=== PATIENT | female | born 1950 | race Caucasian/White ===

== ENCOUNTER 2024-02-14 12:39 | Outpatient (CLI) | payer MEDICARE, MEDICAID, SELFPAY | END 2024-02-14 12:40 | disposition home or self-care (01) | LOC: WOUND 12:40 | PROVIDERS: PCP Internal Medicine; Visit Provider Nurse Practitioner Family | DX: L89.893 Pressure ulcer of other site, stage 3 (principal); L89.610 Pressure ulcer of right heel, unstageable; L89.620 Pressure ulcer of left heel, unstageable; I89.0 Lymphedema, not elsewhere classified; M88.89 Osteitis deformans of multiple sites; F78.A9 Other genetic related intellectual disability | CPT/HCPCS: 11042; 11045; 87070; 87186; 97597; G0463 ==

== ENCOUNTER 2024-02-28 12:42 | Outpatient (CLI) | payer MEDICARE, MEDICAID, SELFPAY | END 2024-02-28 12:43 | disposition home or self-care (01) | LOC: WOUND 12:43 | PROVIDERS: PCP Internal Medicine; Visit Provider Nurse Practitioner Family | DX: L89.893 Pressure ulcer of other site, stage 3 (principal); L89.620 Pressure ulcer of left heel, unstageable; I89.0 Lymphedema, not elsewhere classified; M88.89 Osteitis deformans of multiple sites; F78.A9 Other genetic related intellectual disability | CPT/HCPCS: 11042; 97597 ==

== ENCOUNTER 2024-03-13 12:37 | Outpatient (CLI) | payer MEDICARE, MEDICAID, SELFPAY | END 2024-03-13 12:38 | disposition home or self-care (01) | LOC: WOUND 12:37 | PROVIDERS: PCP Internal Medicine; Visit Provider Nurse Practitioner Family | DX: L89.894 Pressure ulcer of other site, stage 4 (principal); L89.614 Pressure ulcer of right heel, stage 4; L89.620 Pressure ulcer of left heel, unstageable; L89.893 Pressure ulcer of other site, stage 3; L89.890 Pressure ulcer of other site, unstageable; M88.89 Osteitis deformans of multiple sites; I89.0 Lymphedema, not elsewhere classified; F78.A9 Other genetic related intellectual disability | CPT/HCPCS: 11043; 11046; 97597; 97598; G0463 ==

== ENCOUNTER 2024-03-27 12:36 | Outpatient (CLI) | payer MEDICARE, MEDICAID, SELFPAY | END 2024-03-27 12:37 | disposition home or self-care (01) | LOC: WOUND 12:36 | PROVIDERS: PCP Internal Medicine; Visit Provider Nurse Practitioner Family | DX: L89.894 Pressure ulcer of other site, stage 4 (principal); L89.614 Pressure ulcer of right heel, stage 4; L89.620 Pressure ulcer of left heel, unstageable; L89.893 Pressure ulcer of other site, stage 3; L89.890 Pressure ulcer of other site, unstageable; I89.0 Lymphedema, not elsewhere classified | CPT/HCPCS: 97597; 97598 ==

== ENCOUNTER 2024-04-10 12:32 | Outpatient (CLI) | payer MEDICARE, MEDICAID, SELFPAY | END 2024-04-10 12:33 | disposition home or self-care (01) | LOC: WOUND 12:32 | PROVIDERS: PCP Internal Medicine; Visit Provider Nurse Practitioner Family | DX: L89.894 Pressure ulcer of other site, stage 4 (principal); L89.614 Pressure ulcer of right heel, stage 4; L89.620 Pressure ulcer of left heel, unstageable; I89.0 Lymphedema, not elsewhere classified | CPT/HCPCS: 97602; G0463 ==

== ENCOUNTER 2024-04-24 12:30 | Outpatient (CLI) | payer MEDICARE, MEDICAID, SELFPAY | END 2024-04-24 12:31 | disposition home or self-care (01) | LOC: WOUND 12:31 | PROVIDERS: PCP Internal Medicine; Visit Provider Nurse Practitioner Family | DX: L89.894 Pressure ulcer of other site, stage 4 (principal); L89.624 Pressure ulcer of left heel, stage 4; L89.614 Pressure ulcer of right heel, stage 4; I89.0 Lymphedema, not elsewhere classified; M88.89 Osteitis deformans of multiple sites; F78.A9 Other genetic related intellectual disability | CPT/HCPCS: 11043; 11046; 87070; 87186; 97597; 97598 ==

== ENCOUNTER 2024-05-08 12:35 | Outpatient (CLI) | payer MEDICARE, SELFPAY ==
[2024-05-08 15:07] LABS: Basophils Percent Auto 0.3 % (0.0-3.0); Eosinophils Percent Auto 0.2 % (0.0-7.0); Hematocrit 30.9 % (33.0-51.0); Hemoglobin* 9.7 gm/dL (12.0-16.0); Immature Granulocytes Pct Auto 0.2 %; Lymphocytes Percent Auto 11.6 % (20-44); Mean Corpuscular HGB Conc 31 gm/dL (32-36); Mean Corpuscular Hemoglobin 27 pg (26-34); Mean Corpuscular Volume 85 fL (80-100); Monocytes Percent Auto 11.8 % (0.0-11.0); Neutrophils Percent Auto 75.9 % (42.0-72.0); Platelet Count* 504 K/uL (140-440); RDW Coefficient of Variation % 14.4 % (11.5-15.5); Red Blood Count 3.62 m/uL (4.00-5.20); Slide Review Reflex No; White Blood Count* 12.55 K/uL (4.50-11.00)
[2024-05-08 15:14] LABS: Chloride* 97 mmol/L (96-114); Potassium* 4.4 mmol/L (3.6-5.1); Sodium* 135 mmol/L (135-149)
[2024-05-08 15:17] LABS: Anion Gap 7 mEq/L (7-15); Blood Urea Nitrogen* 21 mg/dL (7-30); Calcium* 9.5 mg/dL (8.4-10.6); Carbon Dioxide* 31 mmol/L (20-32); Creatinine* 0.5 mg/dL (0.5-1.5); Estimated Glomerular Filt Rate 100 ml/min; Glucose* 100 mg/dL (60-115)
[2024-05-08 15:34] LABS: C Reactive Protein* 11.6 mg/dL (0.5-1.0)
[2024-05-08 15:39] LABS: Albumin* 3.3 g/dL (3.3-5.0)
[2024-05-08 15:42] LABS: Alanine Aminotransferase* 15 U/L (4-35); Alkaline Phosphatase* 231 U/L (40-150); Aspartate Amino Transferase* 22 U/L (12-35); Bilirubin Direct* 0.3 mg/dL (0.0-0.5); Bilirubin Total* 0.3 mg/dL (0.1-1.5); Total Protein* 7.5 g/dL (6.0-8.3)
== END 2024-05-08 12:36 | disposition home or self-care (01) ==
LOC: WOUND 12:37
PROVIDERS: PCP Internal Medicine; Visit Provider Family Medicine
DX: L89.614 Pressure ulcer of right heel, stage 4 (principal); L89.894 Pressure ulcer of other site, stage 4; L89.624 Pressure ulcer of left heel, stage 4; M88.89 Osteitis deformans of multiple sites; I89.0 Lymphedema, not elsewhere classified; F78.A9 Other genetic related intellectual disability; Z79.899 Other long term (current) drug therapy
CPT/HCPCS: 11042; 11045; 36415; 73630; 80048; 80076; 85025; 86140; G0463

== ENCOUNTER 2024-05-09 17:49 | Inpatient (IN) | payer MEDICARE, MEDICAID, SELFPAY ==
--- OUTSIDE RECORDS SUMMARY | 2024-05-09 17:51 | XMS_ITS | Clinical Summary ---
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 Length: calf Strength: 20-30 mmHg Diagnosis: bilateral lower extremity edema 1 Packet 5 021 Active hospital bedIndications:Gas troesophageal reflux disease, unspecified whether esophagitis present,Osteoarthr itis, unspecified osteoarthritis type, unspecified site,Paget's disease of bone,Bilateral leg edema,Abnormal gait Hospital bed with mattress and 1/2 rails. Semi-electric bed. Length of need lifetime months. Bed surgical oncologist:yes 1 Each 023 Active traMADoL (ULTRAM) 50 mg tabletIndications: Paget's disease of bone Administer 1 Tablet (50 mg) via G-tube 4 times daily if needed for Pain. 20 Tablet 024 Active clonazePAM (KLONOPIN) 0.5 mg tabletIndications: Anxiety Administer 1 Tablet (0.5 mg) via G-tube at bedtime. 30 Tablet 024 Active escitalopram oxalate (Lexapro) 10 mg tabletIndications: Depression, unspecified depression type Administer 1 Tablet (10 mg) via G-tube once daily. Take with 20 mg for a total daily of 30 mg AM 30 Tablet 11 024 Active escitalopram oxalate (Lexapro) 20 mg tabletIndications: Depression, unspecified depression type Administer 1 Tablet (20 mg) via G-tube once daily. Take with 10 mg for a total daily dose of 30 mg AM 30 Tablet Active QUEtiapine (SeroqueL) 100 mg tabletIndications: Mixed anxiety depressive disorder Administer 2 Tablets (200 mg) via G-tube at bedtime. 60 Tablet Active apixaban (ELIQUIS) 5 mg tabletIndications: prevent thromboembolism in chronic atrial fibrillation Take 1 Tablet (5 mg) by mouth two times daily. 60 Tablet Active metoprolol tartrate (LOPRESSOR) 25 mg tabletIndications: Atrial fibrillation with RVR (HC) Administer 1 Tablet (25 mg) via G-tube two times daily. 60 Tablet Active valproic acid (DEPAKENE) 250 mg/5 mL oral solutionIndication s:Mixed anxiety depressive disorder Administer 10 mL (500 mg) via G-tube three times daily. 900 mL Active multivitamin pediatric chewable tabletIndications: Paget's disease of bone Administer 1 Tablet via G-tube once daily. 30 Tablet Active Diaper,Brief, Adult,DisposableIn dications:Function al urinary incontinence,Incon tinence of feces, unspecified fecal incontinence type Incontinence supplies: XL Briefs, under pads, chucks, gloves. For home use. 360 Each Active lansoprazole (PREVACID SOLUTAB) 15 mg disintegrating tabletIndications: Gastroesophageal reflux disease, unspecified whether esophagitis present Administer 1 Tablet (15 mg) via G-tube once daily before a meal. 30 Tablet Active tube feedingIndications :Dysphagia, unspecified type Length of need: Greater than 90 days.Tube feeding formula: Jevity 1.5 Tube feeding rate: per Pump: 100 mLs per hour over 12 hours via jejunostomy Water flush: 150 mLs every 6 hours times per day via jejunostomy Medications via: G Tube Supplies needed for: Pump Feedings: feeding pump, IV pole, feeding set, 60 cc syringes, drain sponges, backpack. G tube 12 inch extension. 1 month supply with 12 refills. 1 Each Active Foam Bandage (Tendra Mepilex Border) 4 X 4 bndgIndications:Pr essure injury of skin, unspecified injury stage, unspecified location Apply topically to affected area(s). 1 box 1 Each 024 Active glycopyrrolate (ROBINUL) 1 mg tabletIndications: Excessive oral secretions Give 1 mg per Gtube twice daily as needed for extra secretions. 60 Tablet 12 025 Active cetirizine (ZYRTEC) 10 mg tabletIndications: Chronic rhinitis Administer 1 Tablet (10 mg) via G-tube once daily. 90 Tablet 2 025 Active acetaminophen (TYLENOL EXTRA STRGTH) 500 mg tabletIndications: Paget's disease of bone ADMINISTER 2 TABLETS VIA G-TUBE THREE TIMES DAILY. MAX ACETAMINOPHEN DOSE: 4000MG IN 24HRS 540 Tablet 025 Active acetaminophen (TYLENOL EXTRA STRGTH) 500 mg tabletIndications: Paget's disease of bone Administer 2 Tablets (1,000 mg) via G-tube three times daily. Max acetaminophen dose: 4000mg in 24 hrs. 90 Tablet 5 025 2024 Discontinued Active Problems Problem Noted Date Diagnosed Date Gastrojejunal (GJ) tube in place 02/15/2024 Hypervolemia 12/07/2023 Acute respiratory failure with hypoxia Nonverbal 12/02/2023 Pneumonia of both lungs due to Streptococcus pne umoniae 12/02/2023 Septic shock 12/02/2023 SRINI (acute kidney injury) 12/02/2023 Hypernatremia 12/02/2023 Lactic acidosis 12/02/2023 Mammogram declined 07/30/2020 Bilateral leg edema 07/30/2020 Swallowing dysfunction 11/15/2019 Chronic constipation 10/10/2019 Abnormal gait 10/10/2019 Overview (10/10/2019): Using wheeled walker and staff assistance. Chronic cough 10/10/2019 Overview (10/10/2019): Has had GI workup as it seems to occur during eating. Chronic rhinitis 08/02/2019 Gastroesophageal reflux disease 09/21/2017 Mixed anxiety depressive disorder 09/21/2017 Overview (10/10/2019): Psychiatry at [facility] with Sherron Bhagat. They manage her adderall, depakote, seroquel, and lexapro. Moderate intellectual disability 09/21/2017 Overview (10/10/2019): Currently living at the [facility]. Nonverbal. Knows some sign language. Overactive child 09/21/2017 Paget's disease of bone 09/21/2017 Overview (10/10/2019): Follows at [facility] for occasional injections for pain control. Taking celebrex. Hypertensive kidney disease, stage II 06/09/2009 Overview (07/25/2019): Overview: HTN [Hypertension] Osteoarthritis 06/09/2009 Resolved Problems Problem Noted Date Diagnosed Date Resolved Date Atrial fibrillation with RVR 12/02/2023 02/15/2024 Encounters Date Type Department Care Team Description 05/08/2024 Telephone [facility] [address] [place] [address] Yury Villa DPM Appointment Request 04/30/2024 Telephone [facility] [address] [place] [address] Rosmery Sheffield, RN Appointment 04/26/2024 Telephone [facility] [address] [place] [address] Rebeca Diaz DO Form (progress evaluation of physical therapy form) 04/19/2024 Refill [facility] [address] [place] [address] Rebeca Diaz DO Refill Request (Acetaminophen) 03/30/2024 Refill [facility] [address] [place] [phone] Rebeca Diaz DO Refill Request (certizine) 03/26/2024 Telephone [facility] [address] [place] [address] Rebeca Diaz DO Form (Gel Foam Mattress Overlay.) 03/14/2024 10:25 AM BURNISHER - 03/14/2024 11:59 PM BURNISHER Hospital Encounter [facility] [address] [place] [address] Risa Treviño MD Aspiration pneumonia (HC) 03/14/2024 Travel 02/15/2024 2:40 PM BURNISHER Office Visit [facility] [address] [place] [address] Rebeca Diaz DO Hospital F/U (follow up ER and ct scan) 02/14/2024 9:50 AM BURNISHER - 02/14/2024 11:59 PM BURNISHER Hospital Encounter [facility] [address] [place] [address] Rebeca Diaz DO Acute respiratory failure with hypoxia (HC); Acute aspiration pneumonia (HC) 02/14/2024 Travel 02/10/2024 11:20 AM BURNISHER - 02/10/2024 1:53 PM BURNISHER Emergency [facility] [address] [place] [address] Celso Verde PA Cellulitis of right lower extremity (Primary Dx); Pressure injury of skin of left heel, unspecified injury stage Discharge Disposition: Home Self Care 02/10/2024 Telephone [facility] [address] [place] [address] Rebeca Diaz DO Appointment (CELLULITIS RIGHT LOWER LEG) 02/10/2024 Travel from Last 3 Months Immunizations Immunization Administration Dates Next Due COVID-19 vaccine (Moderna 100mcg/0.5mL) ANILA RICO 04/02/2020,03/05/2020 Influenza A (H1N1), Inactivated 02/05/2009 Influenza Virus, Unspecified 01/15/2016, 12/24/2014,12/13/2013,2012,12/20/2011,12/10/2010,11/20/2009 Influenza, High-dose Inactivated 12/06/2018,12/08 Influenza, IIV3 (Age 6-35 mos) 12/02/2008 Influenza, IIV3 (Age >=3 years) 12/20/2011,12/05,01/09/2007 Influenza, IIV4 01/11/2017,01/15/2016,02/05/2009 Influenza, IIV4 (=>6mos) MDV 12/24/2014 Influenza, Inactivated AIIV4 (Age 65+ Years) Preserv Free 12/03/2022,12/26/2021,10/29/2020,2019 Influenza, Inactivated IIV3 (Age 65+ Years) Preserv Free 12/26/2023 Pneumococcal Poly,23-Valent (Pneumovax) 09/21/2017,07/28/1998 Pneumococcal conj 13-Valent (Prevnar 13) 08/19/2016 Td (Age >=7 Years) 07/23/2003 Tdap 01/20/2022,12/20/2011 Zoster (Shingrix-RZV, recombinant) 08/08/2020, Social History Tobacco Use Types Packs/Day Years Used Date Smoking Tobacco: Never Passive Smoke Exposure: Never Smokeless Tobacco: Never Tobacco Cessation:Counseling Given: Not Answered Alcohol Use Standard Drinks/Week Comments Never 0 (1 standard drink = 0.6 oz pur e alcohol) PHQ-2 Answer Date Recorded PHQ-2 TOTAL SCORE 0 12/03/2022 Social Connections Answer Date Recorded Do you often feel lonely or isolated from those around you? 0 12/16/2023 Financial Resource Strain Answer Date R ecorded Difficulty of Paying Living Expenses 3 12/16/2023 Difficulty of Paying Living Expenses Not on file 12/16/2023 Food Insecurity Answer Date Recorded Do you worry your food will run out before you are able to buy more? 1 12/16/2023 Transportation Needs Answer Date Record ed Does lack of transportation keep you from medica l appointments? 1 12/16/2023 Does lack of transportation keep you from work, meetings or getting things that you need? 1 12/16/2023 Housing Stability Answer Date Recorded What is your housing situation today? 1 12/16/2023 Interpersonal Safety Answer Date Record ed Are you being hit, kicked, p ushed or yelled at (see row info)? No 02/10/2024 Interpersonal Safety Abuse 12 - 18 Not on file 02/10/2024 Interpersonal Safety Ambulatory Vulnerability No t on file 02/10/2024 Utilities Answer Date Recorded Do you have trouble paying f or utilities (for example, heat, electricity, water, phone)? 1 12/16/2023 Comments No Sex and Gender Information Value Date Recorded Sex Assigned at Not on file Legal Sex Female 5:24 AM BURNISHER Gender Identity Not on file Sexual Orientation Not on file Obstetrics History Last Filed Vital Signs Vital Sign Reading Time Taken Comments Blood Pressure 130/72 02/15/2024 2:46 PM BURNISHER Pulse 76 02/15/2024 2:46 PM BURNISHER Temperature 36.9 C (98.5 F) 02/10/2024 10:13 AM BURNISHER Respiratory Rate 18 02/10/2024 10:20 AM BURNISHER Oxygen Saturation 97% 02/10/2024 11:44 AM BURNISHER Inhaled Oxygen Concentration - - Weight 81.2 kg (179 lb) 02/10/2024 11:44 AM BURNISHER Height 177.8 cm (5' 10) 02/10/2024 11:44 AM BURNISHER Body Mass Index 25.68 02/10/2024 11:44 AM BURNISHER Plan of Treatment Upcoming Encounters Date Type Department Care Team (Late st Contact Info) Description 05/10/2024 1:45 PM CDT Office Visit [facility] [address] [phone] Yury Villa, DPMo [address] [place] [address] Health Maintenance Due Date Last Done Comments Mammogram for age 45-75 1997 RSV vaccine for adults or (1 - Risk 60-74 years 1-dose series) 2012 DEXA/DXA scan for age 65+ 2017 COVID-19 vaccine series ( season) 2023 12/03/2020, 04/02/2020, 03/05/2020 BMI (ht and wt on same day) for age 18+ 12/04/2023 12/03/2022 Depression screening for age 12+ 12/04/2023 12/03/2022, 10/30/2021, 10/29/2020, Additional history exists Medicare Wellness for age 65+ 12/04/2023, 10/30/2021, 10/29/2020, Additional history exists Colonoscopy through age 75 10/17/202410/17 ([facility]) Lipids for age 45-75 06/02/2028 06/03/2023, 07/30/2022, 08/05/2021, Additional history exists Tetanus booster 01/21/2032 01/20/2022, 12/08, 07/23/2003 Pneumococcal series for age 50+ Completed 09/21/2017, 08/19/2016, 07/28/1998 Hepatitis C screening for ag e 18-79 Completed 10/10/2019 Zoster (shingles) series for age 50+ Completed 08/08/2020, 02/13/2020 Tdap Completed 01/20/2022, 12/20/2011 Influenza Vaccine Completed 12/26/2023, , 12/26/2021, Additional history exists Procedures Procedure Name Priority Date/Time Associated Diagnosis Comments IR PERCUTANEOUS TUBE CHANGE Routine 03/14/2024 11:06 AM BURNISHER Aspiration pneumonia (HC) CT CHEST WO Routine 02/14/2024 10:11 AM BURNISHER Acute respiratory failure with hypoxia (HC) Acute aspiration pneumonia (HC) LIPID PANEL Routine 06/03/2023 9:22 AM CDT Encounter for long-term (current) use of other medications ANTI HCV Routine 10/10/2019 11:24 AM CDT Need for hepatitis C screening test from Last 3 Months or Most Recently Relevant to Health Maintenance Results * IR PERCUTANEOUS TUBE CHANGE (03/14/2024 11:06 AM BURNISHER) Anatomical Region Laterality Modality X-Ray Angiograph y Narrative 03/14/2024 12:21 PM BURNISHER Procedure: Percutaneous gastrojejunostomy exchange under fluoroscopic guidance. Interventionalist: Risa Treviño MD Fluoroscopy time: 1 minute. Reference air kerma: 6 mGy. Indication: Malnutrition, routine exchange. Medications: None. Contrast: Omnipaque 350, 50 mL into the GI tract Estimated Blood Loss: <10 mL Complications: None immediate. Implanted device: 22 Syriac ADELSO gastrojejunostomy feeding tube Technique/Findings: The procedure was performed under the continuation of care, with a prior informed consent obtained. The patient was placed supine on the fluoroscopy table and the abdomen and existing GJ tube were prepped and draped in a sterile fashion. A timeout was performed verifying the correct patient and procedure. A guidewire was advanced through the pre-existing GJ tube. The tip of the guidewire was positioned in the duodenal jejunal junction. The balloon was deflated and the old GJ tube was removed. A new tube was then advanced over the guidewire to the duodenal jejunal junction. The balloon was inflated with saline and a small amount of contrast within the stomach to 9 mL. A small amount of contrast was injected and confirmed placement of the tube within the stomach and duodenal jejunal junction. The patient tolerated the procedure well. Fluoroscopy was used intermittently throughout the case. Impression: Successful fluoroscopic exchange of percutaneous gastrojejunostomy tube. The tube is ready for immediate use. us Risa Treviño MD IR Final Res ult * CT CHEST WO (02/14/2024 10:11 AM BURNISHER) Anatomical Region Laterality Modality CHEST, THORAX, HEART Computed To mography 02/14/2024 1:02 PM BURNISHER Impressions 02/14/2024 1:02 PM BURNISHER : 1. Multifocal lung infiltrates significantly improved from the prior. 2. Minimal residual linear scarring at the lung bases. Ground-glass densities persisting in the mid to upper lobes some of which is due to breathing motion artifact. These densities may be residual from the prior or mild pulmonary inflammation or early pulmonary edema. No lung nodularity or focal consolidation. 3. Mild cardiomegaly. 4. Chronic skeletal findings. Gastrostomy tube appropriately positioned. Please note that all CT scans at this facility use dose modulation, iterative reconstruction, and/or weight-based dosing when appropriate to reduce radiation dose to as low as reasonably achievable. Dictated by J Kovar,MD @ 02/14/2024 1:02:42 PM (Electronically Signed) Narrative 02/14/2024 1:02 PM BURNISHER For Patients: As a result of the Cures Act, medical imaging exams and procedure reports are released immediately into your electronic medical record. You may view this report before your referring provider. If you have questions, please contact your health care provider. INDICATION: Aspiration pneumonia TECHNIQUE: CT chest without contrast. COMPARISON: CT chest with contrast 12/01/2023 FINDINGS: Cardiovascular structures: Mild cardiac enlargement.. Thoracic aorta and main pulmonary artery are normal in caliber. Mediastinum and gio: No sign of mass or adenopathy. Lungs: Significant interval improvement of the previously noted bilateral patchy bilateral lung infiltrates. Minimal residual linear scarring at the lung bases ground-glass densities in the mid to upper lobes, some of which is due to breathing motion artifacts. No pulmonary nodules. Pleura and pericardium: No effusions. Chest wall and axilla: No mass or adenopathy. Bones: Redemonstrated diffuse Paget`s disease. Upper abdomen: Gastrostomy tube in place. Procedure Note Manuel Kline MD - 02/14/2024 For Patients: As a result of the Cures Act, medical imagingexams and procedure reports are released immediately into your electronicmedical record. You may view this report before your referring provider.If you have questions, please contact your health care provider. INDICATION: Aspiration pneumonia TECHNIQUE: CT chest without contrast. COMPARISON: CT chest with contrast 12/01/2023 FINDINGS: Cardiovascular structures: Mild cardiac enlargement.. Thoracic aorta andmain pulmonary artery are normal in caliber. Mediastinum and gio: No sign of mass or adenopathy. Lungs: Significant interval improvement of the previously noted bilateralpatchy bilateral lung infiltrates. Minimal residual linear scarring at thelung bases ground-glass densities in the mid to upper lobes, some of whichis due to breathing motion artifacts. No pulmonary nodules. Pleura and pericardium: No effusions. Chest wall and axilla: No mass or adenopathy. Bones: Redemonstrated diffuse Paget`s disease. Upper abdomen: Gastrostomy tube in place. IMPRESSION: : 1. Multifocal lung infiltrates significantly improved from the prior. 2. Minimal residual linear scarring at the lung bases. Ground-glassdensities persisting in the mid to upper lobes some of which is due tobreathing motion artifact. These densities may be residual from the prioror mild pulmonary inflammation or early pulmonary edema. No lungnodularity or focal consolidation. 3. Mild cardiomegaly. 4. Chronic skeletal findings. Gastrostomy tube appropriately positioned. Please note that all CT scans at this facility use dose modulation,iterative reconstruction, and/or weight-based dosing when appropriate toreduce radiation dose to as low as reasonably achievable. Dictated by Britney Kline MD @ 02/14/2024 1:02:42 PM (Electronically Signed) Rebeca Diaz DO CT Final Result * LIPID PANEL (06/03/2023 9:22 AM CDT) CHOLESTEROL,TOTAL 166 100 - 199 mg/dL 06/03/2023 10:04 AM [facility] Comment: Cholesterol, Total Reference Ranges Desirable <200 mg/dL Borderline 200-239 mg/dL High >=240 mg/dL TRIGLYCERIDES 70 <150 mg/dL 06/03/2023 10:04 AM [facility] HDL CHOLESTEROL 66 >40 mg/dL 10:04 AM [facility] NON-HDL CHOLESTEROL 100 <145 mg/dl 06/03/2023 10:04 AM [facility] CHOL/HDL RATIO 2.52 <4.50 06/03/2023 10:04 AM [facility] LDL CHOLESTEROL 86 <=130 mg/dL 06/03/2023 10:04 AM [facility] VLDL CHOLESTEROL 14 <=30 mg/dL 06/03/2023 10:04 AM [facility] PROVIDER ORDERED STATUS RANDOM 06/03/2023 10:04 AM [facility] Blood BLOOD SPECIMEN / Unknown Venipuncture / Unknown 06/03/2023 9:22 AM CDT 06/03/2023 9:24 AM CDT us Rebeca Diaz DO CHEMISTRY Final Result Performing Organization Address City/[facility]/ZIP Co de Phone Number [facility] [address] [place] [address] * ANTI HCV [46555.2] (10/10/2019 11:24 AM CDT) HEPATITIS C ANTIBODY Non-React deandre Non-React deandre 10/10/2019 9:12 PM CDT [facility] Comment:Antibodies to HCV no t detected; does not exclude the possibility of exposure to HCV. Blood BLOOD SPECIMEN / Unknown Venipuncture / Unknown 10/10/2019 11:24 AM CDT 10/10/2019 11:31 AM CDT Rebeca Diaz DO SEND OUTS Final Result Performing Organization Address [facility] Co de Phone Number [facility] [address] [place] [address], [place] from Last 3 Months or Most Recently Relevant to Health Maintenance Insurance [email or web address] [address] [address] MEDICARE PART A HB ONLY MEDICARE PART B HB ONLY MEDICAID MEDICARE PB ONLY MEDICAID MEDICARE PART B HB ONLY MEDICARE PART A HB ONLY Advance Directives * DNR (Latest Code Status on File) Date Activated Date Inactivated Comments 12/08/2023 4:38 PM 12/23/2023 1:02 PM Discussed with Hillary larkin Question Answer Comments Code Status Discussion: Reviewed Preferences * Full Code Date Activated Date Inactivated Comments 12/02/2023 1:24 AM 12/08/2023 4:38 PM Question Answer Comments Code Status Discussion: Reviewed Preferences * Full Code Date Activated Date Inactivated Comments 10/17/2014 7:56 AM 10/17/2014 12:40 PM * Full Code Date Activated Date Inactivated Comments 03/04/2014 9:40 AM 03/04/2014 2:25 PM Care Teams 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
[2024-05-09 17:53] VITALS: BP 118/62; PULSE 117; RESP 20; TEMP 37; O2SAT 93; BMI 24.8
--- NOTE | 2024-05-09 18:26 | ED_ITS ---
HPI - General Adult General Chief complaint: Extremity Pain/Injury, Lower Stated complaint: osteomyelitis Time Seen by Provider: 05/09/24 18:14 History of Present Illness HPI narrative: This 73-year-old female is nonverbal and resides in a detention. She was at a wound clinic appointment for chronic pressure wounds on her heels of her feet and the clinician in the wound clinic was very concerned about worsening findings of the pressure wound on her right heel. With debridement to clinician at the wound clinic noted that there was exposed bone and concern for osteomyelitis. There was a fall order from this area a in a previous visit a few days ago and a culture was obtained at that time. Her symptoms have significantly worsened today and an attempt was made to admit the patient directly but was diverted here to the emergency room. She arrives here with normal vital signs except for tachycardia. She has been chronically rubbing her heels on the mattress that she has at her living facility. Currently she is bandaged appropriately and has air questions under her heels for protection. Related Data Home Medications ?Medication ?Instructions ?Recorded ?Confirmed celecoxib 200 mg capsule 200 mg PO BID 09/02/21 03/11/23 cetirizine 10 mg tablet 10 mg PO DAILY 09/02/21 03/11/23 clonazepam 0.5 mg tablet 0.5 mg PO .Daily as needed PRN 09/02/21 03/11/23 dextroamphetamine-amphetamine ER 10 PO DAILY 09/02/21 03/11/23 10 mg 24hr capsule,extend release divalproex 250 mg tablet,delayed mg PO BID 09/02/21 03/11/23 release divalproex 500 mg tablet,delayed mg PO BID 09/02/21 03/11/23 release docusate sodium 100 mg capsule mg PO BID 09/02/21 03/11/23 escitalopram oxalate 20 mg tablet 20 mg PO DAILY 09/02/21 03/11/23 glycopyrrolate 1 mg tablet 1 mg PO BID 09/02/21 03/11/23 omeprazole 40 mg capsule,delayed 40 mg PO DAILY 09/02/21 03/11/23 release quetiapine 200 mg tablet 200 mg PO .Bedtime 09/02/21 03/11/23 tramadol 50 mg tablet 50 mg PO PRN 09/02/21 03/11/23 verapamil 240 mg tablet,extended 240 mg PO BID 09/02/21 03/11/23 release escitalopram oxalate 20 mg tablet 20 mg PO QDAY 09/04/21 03/11/23 (Lexapro) polyethylene glycol 3350 17 4 g PO ONCE 09/04/21 03/11/23 gram/dose oral powder torsemide 20 mg tablet 20 mg PO QAM 09/04/21 03/11/23 Allergies Allergy/AdvReac Type Severity Reaction Status Date / Time No Known Allergies Allergy Verified 05/09/24 17:53 Review of Systems Status of ROS: Reports: unobtainable due to mental status Narrative: Unable to obtain as the patient is nonverbal. [facility] Medical History Anxiety Arthritis Degenerative joint disease Foot drop, bilateral Heart murmur Hiatal hernia Hypertension Neurogenic bladder OCD (obsessive compulsive disorder) Osteoarthritis, hip, bilateral Osteoarthritis, knee Paget's disease Social History Smoking Status: Never smoker Do you use any of these nicotine containing products: None Second hand tobacco smoke exposure: No How often do you have a drink containing alcohol: never AUDIT-C Alcohol total score: 0 Non-prescribed substance use: denies use Exam Narrative: Exam Narrative: Constitutional: Well-developed, well-nourished, no acute distress. HEENT: Normocephalic, atraumatic. Neck: Normal range of motion. Nontender. Supple. Heart: Regular. No murmurs. Tachycardia. Intact distal pulses. Lungs: Clear to auscultation. No chest discomfort. No wheezes, rhonchi, or rales. Abdomen: Normal bowel sounds. Nontender. No rebound tenderness. Genitalia: Deferred. Back: No midline tenderness. Normal range of motion. Extremities: Large edema bilaterally in the lower extremities. Both feet are wrapped in Julio bandages and a air-filled type of pillow is strap to each foot to prevent further pressure to these areas. Skin: Intact. No rash. Warm. No erythema or pallor. Neurologic: No altered sensation. No weakness. Alert and oriented. Psychiatric: No suicidality. No anxiety or depression. No insomnia. Nursing notes and vitals signs are reviewed. Const: Vital Signs, click to edit/add: Vital Signs - 24 hr 05/09/24 17:53 Temperature 98.6 F Pulse Rate [Pulse Oximeter] 117 H Respiratory Rate 20 Blood Pressure [Ri ght Forearm] 118/62 Pulse Oximetry 93 Oxygen Delivery Me thod Room Air Course Vital Signs Vital signs: Initial Vital Signs Temperature 98.6 F 05/09/24 17:53 Temperature Source Temporal Artery Scan 05/09/24 17:53 Pulse Rate 117 H 05/09/24 17:53 Respiratory Rate 20 05/09/24 17:53 Blood Pressure 118/62 05/09/24 17:53 Blood Pressure Mean 80 05/09/24 17:53 Blood Pressure Position Sitting 05/09/24 17:53 Pulse Oximetry 93 05/09/24 17:53 Oxygen Delivery Method Room Air 05/09/24 17:53 Vital Signs Temperature 98.6 F 05/09/24 17:53 Pulse Rate 117 H 05/09/24 17:53 Respiratory Rate 20 05/09/24 17:53 Blood Pressure 118/62 05/09/24 17:53 Pulse Oximetry 93 05/09/24 17:53 Oxygen Delivery Method Room Air 05/09/24 17:53 Temperature 98.6 F 05/09/24 17:53 Pulse Rate 117 H 05/09/24 17:53 Respiratory Rate 20 05/09/24 17:53 Blood Pressure 118/62 05/09/24 17:53 Pulse Oximetry 93 05/09/24 17:53 Oxygen Delivery Method Room Air 05/09/24 17:53 Medications Administered Medications: Discontinued Medications Generic Name Dose Route Start Last Admin Trade Name Freq PRN Reason Stop Dose Admin Piperacillin Sod/Tazobactam 100 mls @ 200 mls/hr 05/09/24 18:24 05/09/24 19:42 Sod 3.375 gm/ Sodium Chloride IVPB 05/09/24 18:25 Infused ONCE ONE Infusion Medical Decision Making MDM Narrative Medical decision making narrative: This patient comes in from a detention and has chronic ulcers on her heels that she has been treating at a wound clinic here. There was a foul odor coming from her right heel and she has taken oral antibiotics and a culture was drawn. This occurred last week and now an x-ray done recently shows evidence of osteomyelitis and the ulceration is down to her bone. She is sent here for further treatment as she has failed outpatient management. An IV was established and blood culture and labs are obtained. These returned with reassuring results. The patient did receive an IV Zosyn dose. I did speak with Podiatry, Dr. Mckay, who will connect with Dr. Mega sheldon for a visit in the hospital as she will be admitted here. She will benefit from a a MRI that can be done tomorrow and would likely need conscious sedation with Versed for that study to be done. I spoke with the hospitalist on-call who agrees to this plan. Lab Data Labs: Lab Results 05/09/24 Range/Units 18:37 WBC 8.68 (4.50-11.00) K/uL RBC 3.39 L (4.00-5.20) m/uL Hgb 9.1 L (12.0-16.0) gm/dL Hct 28.3 L (33.0-51.0) % MCV 84 (80-100) fL MCH 27 (26-34) pg MCHC 32 (32-36) gm/dL RDW Coeff of Cheryl 14.3 (11.5-15.5) % Plt Count 471 H (140-440) K/uL Neut % (Auto) 73.6 H (42.0-72.0) % Lymph % (Auto) 15.0 L (20-44) % Hodgeman % (Auto) 10.5 (0.0-11.0) % Eos % (Auto) 0.5 (0.0-7.0) % Baso % (Auto) 0.3 (0.0-3.0) % Neut # (Auto) 6.40 (1.7-7.0) K/uL Lymph # (Auto) 1.30 (0.90-2.90) K/uL Hodgeman # (Auto) 0.90 (0.00-0.90) K/UL Eos # (Auto) 0.04 (0.00-0.50) K/uL Baso # (Auto) 0.03 (0.00-0.30) K/uL Abs Immat Gran (auto) 0.01 (0.00-0.30) K/uL Imm/Tot Granulo (auto) 0.1 % Lactate 0.8 (0.5-1.9) mmol/L Procalcitonin 0.05 (<0.50) ng/mL Discharge Plan Discharge Clinical Impression: Osteomyelitis Patient Disposition: Admitted As Observation Condition: Stable Prescriptions: No Action escitalopram oxalate 20 mg tablet 20 mg PO DAILY dextroamphetamine-amphetamine 10 mg capsule,extended release 24hr 10 PO DAILY verapamil 240 mg tablet extended release 240 mg PO BID docusate sodium 100 mg capsule PO BID tramadol 50 mg tablet 50 mg PO PRN omeprazole 40 mg capsule,delayed release(DR/EC) 40 mg PO DAILY divalproex 500 mg tablet,delayed release (DR/EC) PO BID quetiapine 200 mg tablet 200 mg PO .Bedtime clonazepam 0.5 mg tablet 0.5 mg PO .Daily as needed PRN cetirizine 10 mg tablet 10 mg PO DAILY divalproex 250 mg tablet,delayed release (DR/EC) PO BID glycopyrrolate 1 mg tablet 1 mg PO BID celecoxib 200 mg capsule 200 mg PO BID torsemide 20 mg tablet 20 mg PO QAM escitalopram oxalate [Lexapro] 20 mg tablet 20 mg PO QDAY polyethylene glycol 3350 17 gram/dose powder 4 g PO ONCE Follow Up/Referrals: Rebeca Diaz [Primary Care Provider] -
[2024-05-09 18:43] LABS: Lactate* 0.8 mmol/L (0.5-1.9)
[2024-05-09 18:44] LABS: Basophils Absolute Auto 0.03 K/uL (0.00-0.30); Basophils Percent Auto 0.3 % (0.0-3.0); Eosinophils Absolute Auto 0.04 K/uL (0.00-0.50); Eosinophils Percent Auto 0.5 % (0.0-7.0); Hematocrit 28.3 % (33.0-51.0); Hemoglobin* 9.1 gm/dL (12.0-16.0); Immature Granulocytes Abs Auto 0.01 K/uL (0.00-0.30); Immature Granulocytes Pct Auto 0.1 %; Mean Corpuscular HGB Conc 32 gm/dL (32-36); Mean Corpuscular Hemoglobin 27 pg (26-34); Mean Corpuscular Volume 84 fL (80-100); Monocytes Percent Auto 10.5 % (0.0-11.0); Neutrophils Percent Auto 73.6 % (42.0-72.0); Platelet Count* 471 K/uL (140-440); RDW Coefficient of Variation % 14.3 % (11.5-15.5); Red Blood Count 3.39 m/uL (4.00-5.20); White Blood Count* 8.68 K/uL (4.50-11.00)
[2024-05-09 18:48] LABS: Slide Review Reflex No
[2024-05-09] MEDS: PIPERACILLIN/TAZOBACTAM 3.375 GM in 0.9 % SODIUM CHLORIDE Mini-bag 100 ML IVPB (19:07)
--- OUTSIDE RECORDS SUMMARY | 2024-05-09 19:12 | XMS_ITS | Clinical Summary ---
Author Organization [facility] Address [facility] [place] [address] Care Team Providers Care Gardener Name Role Phone Rebeca Diaz Primary Care Provider [phone] Allergies No known active allergies Medications Graduated [...] bed. Length of need lifetime months. 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 They manage her adderall, depakote, seroquel, and lexapro. Moderate intellectual disability 09/21/2017 Overview (10/10/2019): Currently living at the [facility]. Nonverbal. Knows some sign language. Overactive child 09/21/2017 Paget's disease of bone 09/21/2017 Overview (10/10/2019): Follows at [facility] for occasional injections for pain control. Taking celebrex. Hypertensive kidney disease, stage II 06/09/2009 Overview (07/25/2019): Overview: HTN [Hypertension] Osteoarthritis 06/09/2009 Resolved Problems Problem Noted Date Diagnosed Date Resolved Date Atrial fibrillation with RVR 12/02/2023 02/15/2024 Encounters Date Type Department Care Team Description 05/08/2024 Telephone [facility] [address] [place] [address] Yury Villa DPM Appointment Request 04/30/2024 Telephone [facility] [address] [place] [address] Rosmery Sheffield, RN Appointment 04/26/2024 Telephone [facility] [address] [place] [address] Rebeca Diaz DO Form (progress evaluation of physical therapy form) 04/19/2024 Refill [facility] [address] [place] [address] Rebeca Diaz DO Refill Request (Acetaminophen) 03/30/2024 Refill [facility] [address] [place] [phone] Rebeca Diaz DO Refill Request (certizine) 03/26/2024 Telephone [facility] [address] [place] [address] Rebeca Diaz DO Form (Gel Foam Mattress Overlay.) 03/14/2024 10:25 AM CHILD DAY CARE PROVIDER - 03/14/2024 11:59 PM CHILD DAY CARE PROVIDER Hospital Encounter [facility] [address] [place] [address] Risa Treviño MD Aspiration pneumonia (HC) 03/14/2024 Travel 02/15/2024 2:40 PM CHILD DAY CARE PROVIDER Office Visit [facility] [address] [place] [address] Rebeca Diaz DO Hospital F/U (follow up ER and ct scan) 02/14/2024 9:50 AM CHILD DAY CARE PROVIDER - 02/14/2024 11:59 PM CHILD DAY CARE PROVIDER Hospital Encounter [facility] [address] [place] [address] Rebeca Diaz DO Acute respiratory failure with hypoxia (HC); Acute aspiration pneumonia (HC) 02/14/2024 Travel 02/10/2024 11:20 AM CHILD DAY CARE PROVIDER - 02/10/2024 1:53 PM CHILD DAY CARE PROVIDER Emergency [facility] [address] [place] [address] Celso Verde PA Cellulitis of right lower extremity (Primary Dx); Pressure injury of skin of left heel, unspecified injury stage Discharge Disposition: Home Self Care 02/10/2024 Telephone [facility] [address] [place] [address] Rebeca Diaz DO Appointment (CELLULITIS RIGHT LOWER [...] on file Legal Sex Female 5:24 AM CHILD DAY CARE PROVIDER Gender Identity Not on file Sexual Orientation Not on file Obstetrics History Last Filed Vital Signs Vital Sign Reading Time Taken Comments Blood Pressure 130/72 02/15/2024 2:46 PM CHILD DAY CARE PROVIDER Pulse 76 02/15/2024 2:46 PM CHILD DAY CARE PROVIDER Temperature 36.9 C (98.5 F) 02/10/2024 10:13 AM CHILD DAY CARE PROVIDER Respiratory Rate 18 02/10/2024 10:20 AM CHILD DAY CARE PROVIDER Oxygen Saturation 97% 02/10/2024 11:44 AM CHILD DAY CARE PROVIDER Inhaled Oxygen Concentration - - Weight 81.2 kg (179 lb) 02/10/2024 11:44 AM CHILD DAY CARE PROVIDER Height 177.8 cm (5' 10) 02/10/2024 11:44 AM CHILD DAY CARE PROVIDER Body Mass Index 25.68 02/10/2024 11:44 AM CHILD DAY CARE PROVIDER Plan of Treatment Upcoming Encounters Date Type Department Care Team (Late st Contact Info) Description 05/10/2024 1:45 PM CDT Office Visit [facility] [address] [phone] Yury Villa, DPMo [address] [place] [address] Health Maintenance Due Date Last Done Comments [...] through age 75 10/17/202410/17 [facility] Lipids for age 45-75 06/02/2028 06/03/2023, 07/30/2022, [...] PERCUTANEOUS TUBE CHANGE Routine 03/14/2024 11:06 AM CHILD DAY CARE PROVIDER Aspiration pneumonia (HC) CT CHEST WO Routine 02/14/2024 10:11 AM CHILD DAY CARE PROVIDER Acute respiratory failure with hypoxia (HC) Acute aspiration pneumonia (HC) LIPID PANEL Routine 06/03/2023 9:22 AM CDT Encounter for long-term (current) use of other medications ANTI HCV Routine 10/10/2019 11:24 AM CDT Need for hepatitis C screening test from Last 3 Months or Most Recently Relevant to Health Maintenance Results * IR PERCUTANEOUS TUBE CHANGE (03/14/2024 11:06 AM CHILD DAY CARE PROVIDER) Anatomical Region Laterality Modality X-Ray Angiograph y Narrative 03/14/2024 12:21 PM CHILD DAY CARE PROVIDER Procedure: Percutaneous gastrojejunostomy exchange under fluoroscopic guidance. Interventionalist: Risa Treviño MD Fluoroscopy time: 1 minute. Reference air kerma: 6 mGy. Indication: Malnutrition, routine exchange. Medications: None. Contrast: Omnipaque 350, 50 mL into the GI tract Estimated Blood Loss: <10 mL Complications: None immediate. Implanted device: 22 Setswana ADELSO gastrojejunostomy feeding tube Technique/Findings: The procedure [...] * CT CHEST WO (02/14/2024 10:11 AM CHILD DAY CARE PROVIDER) Anatomical Region Laterality Modality CHEST, THORAX, HEART Computed To mography 02/14/2024 1:02 PM CHILD DAY CARE PROVIDER Impressions 02/14/2024 1:02 PM CHILD DAY CARE PROVIDER : 1. Multifocal lung infiltrates significantly improved [...] PM (Electronically Signed) Narrative 02/14/2024 1:02 PM CHILD DAY CARE PROVIDER For Patients: As a result of the [...] 100 - 199 mg/dL 06/03/2023 10:04 AM [facility] Comment: Cholesterol, Total Reference Ranges Desirable <200 mg/dL Borderline 200-239 mg/dL High >=240 mg/dL TRIGLYCERIDES 70 <150 mg/dL 06/03/2023 10:04 AM [facility] HDL CHOLESTEROL 66 >40 mg/dL 10:04 AM [facility] NON-HDL CHOLESTEROL 100 <145 mg/dl 06/03/2023 10:04 AM [facility] CHOL/HDL RATIO 2.52 <4.50 06/03/2023 10:04 AM [facility] LDL CHOLESTEROL 86 <=130 mg/dL 06/03/2023 10:04 AM [facility] VLDL CHOLESTEROL 14 <=30 mg/dL 06/03/2023 10:04 AM [facility] PROVIDER ORDERED STATUS RANDOM 06/03/2023 10:04 AM [facility] Blood BLOOD SPECIMEN / Unknown Venipuncture / Unknown 06/03/2023 9:22 AM CDT 06/03/2023 9:24 AM CDT us Rebeca Diaz DO CHEMISTRY Final Result Performing Organization Address City/[facility]/ZIP Co de Phone Number [facility] [address] [place] [address] * ANTI HCV [53550.2] (10/10/2019 11:24 AM CDT) HEPATITIS C ANTIBODY Non-React deandre Non-React deandre 10/10/2019 9:12 PM CDT [facility] Comment:Antibodies to HCV no t detected; does not exclude the possibility of exposure to HCV. Blood BLOOD SPECIMEN / Unknown Venipuncture / Unknown 10/10/2019 11:24 AM CDT 10/10/2019 11:31 AM CDT Rebeca Diaz DO SEND OUTS Final Result Performing Organization Address [facility] Co de Phone Number [facility] [address] [place] [address], [place] from Last 3 Months or Most Recently Relevant to Health Maintenance Insurance [email or web address] [address] [address] MEDICARE PART A HB ONLY MEDICARE PART [...] 9:40 AM 03/04/2014 2:25 PM Care Teams Gardener Relationship Specialty Start Date End Date Rebeca Diaz DO [address] [place] [id number] PCP - General Internal Medicine 09/11/19
[2024-05-09 19:32] LABS: Procalcitonin* 0.05 ng/mL (<0.50)
[2024-05-09 21:00] VITALS: BP 144/79; PULSE 114; RESP 22; TEMP 36.8; O2SAT 97; BMI 26.5
--- NOTE | 2024-05-09 21:01 | P.IMHP_ITS ---
Assessment and Plan Assessment and plan (1) Osteomyelitis: Problem comment: Suspected right calcaneus - acute on chronic?, worsening X-ray right foot 05/08 shows Deformity of the posterior calcaneus which may represent changes related to chronic osteomyelitis MRI recommended - pt will need sedation (versed is only option I am told) WBC 12.5 yesterday, 8.68 today. Lactate 0.8, procalcitonin 0.05, CRP 11.6. BC pending Assessed by Dr. Caldwell 05/08 in the wound clinic with notable significant changes. Note indicates she had been on an oral antibiotic though it is not clear which one other than it was not sensitive to cultures from 04/24 Wound culture 04/24 growing strep agalactiae, enterococcus faecalis, pseudomonas aeruginosa, staphylococcus aureus - sensitivities to Vanc and Zosyn Repeat wound culture collected now Continue Zosyn as initiated in ED Start vancomycin 1250mg bid, pharmacy to manage Discussed with Dr. Villa, Podiatry. Rec MRI right ankle if patient tolerates. Likely take to OR Thursday 05/11 morning pending suite availability Consult to ID tomorrow for assistance in antibiotic management Status: Acute (2) Pressure ulcer: Problem comment: Multiple sites x 4- right lower leg, right calcaneus stage 4, left calcaneal stage 3, right elbow stage 2 Followed by [facility], most recent visit with Dr. Caldwell 05/08/2024 Continue wound cares per current orders (//Tue) Podiatry consult for right calcaneal pressure ulcer Wound care consult Status: Acute (3) Atrial fibrillation with RVR: Problem comment: Tachycardic in ED EKG shows AFib with RVR, rate > 140 Metoprolol 5 mg IV given upon admission to the floor. Has not yet had her metoprolol tartrate 25 mg evening dose Telemetry Holding Apixiban for likely surgical procedure Thursday 05/11 am ([place]) SCDs Status: Acute (4) G tube feedings: Problem comment: Jevity 1.5 --not available this evening Nutrition consult to ensure appropriate protein for wound healing, expected surgical intervention Status: Acute (5) Neurogenic bladder: Problem comment: Incontinent, keep skin clean and dry Status: Acute (6) Hypertensive kidney disease, stage II: Problem comment: Creatinine 0.5, monitor Status: Acute (7) Mixed anxiety depressive disorder: Problem comment: Continue valproic acid, Lexapro, clonazepam Status: Acute (8) Hypertension: Problem comment: On metoprolol for rate control AFib Status: Acute Total Time Spent Total Time Spent: Today I spent 75 minutes seeing the patient, reviewing Expanse and EPIC notes/diagnostics, discussing the care plan with our care time that includes social work, PT/OT, pharmacy, RT, prison and documenting my impressions and plan in the medical record. Hospitalist- H&P: HPI History of Present Illness Date Seen: 05/09/24 Chief complaint: osteomyelitis Narrative: Vida Gunn is a 73 year old female past medical history significant for atrial fibrillation on chronic anticoagulation, hypertension, hypertensive kidney disease stage 2, GERD, osteoarthritis, multiple pressure wounds, mixed anxiety depressive disorder, chronic cough, neurogenic bladder, Paget's disease, moderate intellectual disability is admitted to the medical floor from the ED for further management suspected worsening osteomyelitis. Patient is nonverbal. Does yell out with pain or randomly at times. I spoke with her caregiver, Toya, briefly. Patient was seen in the Wound Care Clinic yesterday by Dr. Caldwell. At that time Dr. Caldwell notes significant changes in her right calcaneal wound. She attempted debridement at that time but is recommending surgical consultation for further debridement. Toya, her caregiver, denies known recent fevers. There have been no reports of vomiting. Patient is incontinent of stool and urine chronically. Sister is guardian. PCP is Dr. Diaz at [facility]. Patient is a full code. Review of Systems Narrative: REVIEW OF SYSTEMS: Complete review of systems performed and negative unless otherwise stated in HPI or below. Reviewed with caregiver, Toya. [facility] Medical History Mixed anxiety depressive disorder ?F41.8 - Other specified anxiety disorders (ICD-10) Pressure ulcer ?L89.90 - Pressure ulcer of unspecified site, unspecified stage (ICD-10) Nonverbal ?R47.01 - Aphasia (ICD-10) Hypertensive kidney disease, stage II ?I12.9 - Hypertensive chronic kidney disease with stage 1 through stage 4 chronic kidney disease, or unspecified chronic kidney disease (ICD-10) ?N18.2 - Chronic kidney disease, stage 2 (mild) (ICD-10) Chronic cough ?R05.3 - Chronic cough (ICD-10) GERD (gastroesophageal reflux disease) ?K21.9 - Gastro-esophageal reflux disease without esophagitis (ICD-10) Atrial fibrillation ?I48.91 - Unspecified atrial fibrillation (ICD-10) Neurogenic bladder ?N31.9 - Neuromuscular dysfunction of bladder, unspecified (ICD-10) Osteoarthritis, knee ?M17.10 - Unilateral primary osteoarthritis, unspecified knee (ICD-10) Osteoarthritis, hip, bilateral ?M16.0 - Bilateral primary osteoarthritis of hip (ICD-10) Degenerative joint disease ?M19.90 - Unspecified osteoarthritis, unspecified site (ICD-10) Paget's disease OCD (obsessive compulsive disorder) ?F42.9 - Obsessive-compulsive disorder, unspecified (ICD-10) Foot drop, bilateral ?M21.371 - Foot drop, right foot (ICD-10) ?M21.372 - Foot drop, left foot (ICD-10) Heart murmur ?R01.1 - Cardiac murmur, unspecified (ICD-10) Hiatal hernia ?K44.9 - Diaphragmatic hernia without obstruction or gangrene (ICD-10) Anxiety ?F41.9 - Anxiety disorder, unspecified (ICD-10) Arthritis ?M19.90 - Unspecified osteoarthritis, unspecified site (ICD-10) Hypertension ?I10 - Essential (primary) hypertension (ICD-10) Social History Smoking Status: Never smoker Do you use any of these nicotine containing products: None Second hand tobacco smoke exposure: No How often do you have a drink containing alcohol: never AUDIT-C Alcohol total score: 0 Non-prescribed substance use: denies use Meds Home Medications and Allergies Home Medications ?Medication ?Instructions ?Recorded ?Confirmed ?Type celecoxib 200 mg capsule 200 mg PO BID 09/02/21 03/11/23 History cetirizine 10 mg tablet 10 mg PO DAILY 09/02/21 03/11/23 History clonazepam 0.5 mg tablet 0.5 mg PO .Daily as needed PRN 09/02/21 03/11/23 History dextroamphetamine-amphetamine ER 10 PO DAILY 09/02/21 03/11/23 History 10 mg 24hr capsule,extend release divalproex 250 mg tablet,delayed mg PO BID 09/02/21 03/11/23 History release divalproex 500 mg tablet,delayed mg PO BID 09/02/21 03/11/23 History release docusate sodium 100 mg capsule mg PO BID 09/02/21 03/11/23 History escitalopram oxalate 20 mg tablet 20 mg PO DAILY 09/02/21 03/11/23 History glycopyrrolate 1 mg tablet 1 mg PO BID 09/02/21 03/11/23 History omeprazole 40 mg capsule,delayed 40 mg PO DAILY 09/02/21 03/11/23 History release quetiapine 200 mg tablet 200 mg PO .Bedtime 09/02/21 03/11/23 History tramadol 50 mg tablet 50 mg PO PRN 09/02/21 03/11/23 History verapamil 240 mg tablet,extended 240 mg PO BID 09/02/21 03/11/23 History release escitalopram oxalate 20 mg tablet 20 mg PO QDAY 09/04/21 03/11/23 History (Lexapro) polyethylene glycol 3350 17 4 g PO ONCE 09/04/21 03/11/23 History gram/dose oral powder torsemide 20 mg tablet 20 mg PO QAM 09/04/21 03/11/23 History Allergies Allergy/AdvReac Type Severity Reaction Status Date / Time No Known Allergies Allergy Verified 05/09/24 17:53 Exam Narrative: Exam Narrative: PHYSICAL EXAM General: Nonverbal, communicates some with her eyes, appears in NAD at this time HEENT: Normocephalic, atraumatic, sclera white, EOMI, oral mucosa moist Cardiovascular: IRRR, tachycardic Pulmonary: CTA with few upper rhonchi. No dyspnea on room air Abdominal: Soft, nondistended, NTTP Neurological: Alert, nonverbal Extremities: Lower extremities are dressed, will assess when dressings are removed. Toes are warm, feet are swollen, no significant erythema/streaking Skin: Warm, dry. Const: Vital Signs, click to edit/add: Vital Signs - 24 hr 05/09/24 17:53 Temperature 98.6 F Pulse Rate [Pulse Oximeter] 117 H Respiratory Rate 20 Blood Pressure [Ri ght Forearm] 118/62 Pulse Oximetry 93 Oxygen Delivery Me thod Room Air Hospitalist - H&P: Result Labs Labs: Short CBC 05/09/24 Range/Units 18:37 WBC 8.68 (4.50-11.00) K/uL Hgb 9.1 L (12.0-16.0) gm/dL Hct 28.3 L (33.0-51.0) % Plt Count 471 H (140-440) K/uL ECG Attestation: I personally reviewed and interpreted this ECG as follows: Interpretation: Atrial fibrillation with RVR, rate 149, QTC 453 Imaging Right foot: Attestation: I have reviewed the pertinent imaging results. Radiologist's impression: 05/08/2024 Osteoporosis. Dorsal soft tissue swelling. Deformity of the posterior calcaneus. Faint densities adjacent to the posterior superior calcaneus with concavity of the adjacent cortex. No acute fracture. Mild degenerative changes. Impression: Deformity of the posterior calcaneus which may represent changes related to chronic osteomyelitis. Consider MRI for further evaluation.
[2024-05-09] MEDS: METOPROLOL TARTRATE 1 MG/ML inj 5 MG IVP (22:20)
[2024-05-09 23:00] VITALS: PULSE 118
[2024-05-09] MEDS: METOPROLOL TARTRATE 25 MG TABLET G-TUBE (23:07)
[2024-05-09] MEDS: ACETAMINOPHEN 500 MG TABLET 1000 MG G-TUBE (23:07)
[2024-05-09] MEDS: QUETIAPINE 100 MG TABLET 200 MG G-TUBE (23:07)
[2024-05-09] MEDS: VALPROIC ACID 500 MG G-TUBE (23:08)
[2024-05-10] VITALS (10 sets, daily range): BP systolic 101–139; BP diastolic 46–83; PULSE 70–120; RESP 14–22; TEMP 36.8–37.1; O2SAT 94–100; BMI 27.2
[2024-05-10] MEDS: 0.9 % SODIUM CHLORIDE 1000 ml 1,000 ML 125 ML IV ×3 (01:46→23:07)
[2024-05-10] MEDS: VANCOMYCIN 1.5 GM/300 ML 1.5 GM/300 ML PIGGYBACK IVPB (01:46)
[2024-05-10] MEDS: METOPROLOL TARTRATE 1 MG/ML inj 2.5 MG IVP (02:43)
[2024-05-10] MEDS: PIPERACILLIN/TAZOBACTAM 3.375 GM in 0.9 % SODIUM CHLORIDE Mini-bag 100 ML IVPB ×4 (03:38→23:08)
--- NOTE | 2024-05-10 06:00 | CRLHL7_ITS ---
For Patients: As a result of the Century Cures Act, medical imaging exams and procedure reports are released immediately into your electronic medical record. You may view this report before your referring provider. If you have questions, please contact your health care provider. EXAM: MRI OF THE RIGHT ANKLE, WITHOUT AND WITH IV CONTRAST CLINICAL INDICATION: Infection and heel ulceration. COMPARISON PLAIN FILMS: 05/08/2024. COMPARISON CROSS-SECTIONAL IMAGING STUDIES: None. TECHNICAL: Axial, sagittal and coronal T1, PD and STIR images precontrast. Postcontrast T1 weighted imaging with fat saturation. Contrast: Dotarem, 20 mL IV. FINDINGS: There is a broad ulceration in the posterior aspect of the heel with adjacent soft tissue thickening. The ulceration extends to the calcaneus and lateral margin of the Achilles tendon. No adjacent subcutaneous abscess. There is osseous volume loss of the posterior and lateral margin of the posterior calcaneal tuberosity with fatty marrow replacement on T1 weighted imaging in the posterior calcaneal tuberosity. Findings consistent with osteomyelitis. There is intramedullary edema and enhancement that extends into the calcaneal body. There is also high-grade volume loss in the distal aspect of the Achilles tendon with the medial distal insertion which remains intact. Diffuse thickening and increased signal in the Achilles tendon consistent with moderate tendinopathy. Findings discussed with referring clinician. Prominent diffuse subcutaneous edema. No ankle or posterior subtalar joint effusion or synovitis to suggest septic arthritis. No fractures are evident. Diffuse muscular atrophy and edema. IMPRESSION: 1. Posterior calcaneal ulceration with adjacent osteomyelitis, osseous volume loss of the calcaneus and destruction of the distal Achilles tendon. 2. Moderate Achilles tendinopathy. 3. Diffuse subcutaneous edema. 4. Diffuse muscular atrophy and edema. Dictated by Fran Jefferson MD @ 05/10/2024 12:37:50 PM (Electronically Signed)
[2024-05-10 06:32] LABS: Hematocrit 27.5 % (33.0-51.0); Hemoglobin* 8.7 gm/dL (12.0-16.0); Mean Corpuscular HGB Conc 32 gm/dL (32-36); Mean Corpuscular Hemoglobin 27 pg (26-34); Mean Corpuscular Volume 85 fL (80-100); Platelet Count* 450 K/uL (140-440); Red Blood Count 3.24 m/uL (4.00-5.20); White Blood Count* 7.76 K/uL (4.50-11.00)
--- NOTE | 2024-05-10 07:00 | PC.NURSE ---
[id number]: Pt developmentally delayed and nonverbal at baseline. Pt in A fib with RVR, HR remained above 100 throughout shift, MD (Sera and Lester) notified, prn metoprolol given. Pt now in sinus tachycardia. Right heel dressing changed for cultures, tissue necrotic, purulent drainage, tissue sloughing off and strong odor noted. Irrigated with saline flush, re dressed with telfa, abd pad, and tubi clinic scheduler. Right calf dressing in place along with left heel dressing. Heel protectors removed as they were saturated with drainage, elevated heels on pillows. Feet bilaterally +2-3 edema. The right elbow has a small, scabbed area, open to air. Pt repositioned and changed throughout shift. Formula for feedings unavailable, MD notified (Sera), Maintenace fluids started. ?
[2024-05-10 07:01] LABS: Chloride* 98 mmol/L (96-114); Potassium* 4.1 mmol/L (3.6-5.1); Sodium* 133 mmol/L (135-149)
[2024-05-10 07:04] LABS: Anion Gap 7 mEq/L (7-15); Blood Urea Nitrogen* 17 mg/dL (7-30); Calcium* 8.8 mg/dL (8.4-10.6); Carbon Dioxide* 28 mmol/L (20-32); Creatinine* 0.5 mg/dL (0.5-1.5); Estimated Glomerular Filt Rate 100 ml/min; Glucose* 95 mg/dL (60-115)
[2024-05-10 07:25] LABS: Slide Review Reflex No
[2024-05-10 08:01] LABS: C Reactive Protein* 13.9 mg/dL (0.5-1.0)
--- NOTE | 2024-05-10 09:35 | REH.OT ---
Per rounding team, hold on therapy today. Will check pt's status tomorrow and evaluate if appropriate.
--- NOTE | 2024-05-10 10:10 | PC.SOCIAL ---
Social work: At MD request, confirmed with spouse of guardian listed on face sheet and on documentation from facility is pt's legal guardian; Hillary Roland sister/guardian , home phone [phone], cell [phone].
[2024-05-10] MEDS: PANTOPRAZOLE SODIUM 40 MG INJ IVP (10:18)
[2024-05-10] MEDS: SODIUM CHLORIDE 0.9 % (FLUSH) 10 ML SYRINGE 5 ML IVF ×2 (10:18→21:16)
[2024-05-10] MEDS: METOPROLOL TARTRATE 25 MG TABLET G-TUBE ×2 (10:18→21:15)
[2024-05-10] MEDS: ACETAMINOPHEN 500 MG TABLET 1000 MG G-TUBE ×3 (10:19→21:15)
[2024-05-10] MEDS: CETIRIZINE HCL 10 MG TABLET G-TUBE (10:19)
[2024-05-10] MEDS: ESCITALOPRAM 10 MG TABLET 30 MG G-TUBE (10:19)
[2024-05-10] MEDS: VALPROIC ACID 500 MG G-TUBE ×3 (10:39→21:15)
--- NOTE | 2024-05-10 10:48 | PM.IMPN1 ---
Assessment and Plan Assessment and plan (1) Osteomyelitis: Problem comment: - Suspected right calcaneus - acute on chronic (first noted 01/30 per Epic chart, first visit to our wound center for this 02/2024) - Vancomycin and Zosyn (05/09/24), wound culture 04/24/24 + for Pseudomonas, Staph, GBS, Enterococcus - current wound culture pending, Blood culture + for GPC - will need to review plan of care with ID after formal culture results - Podiatry following, plan OR intervention 05/11/24 Status: Acute (2) Atrial fibrillation with RVR: Problem comment: - continue home Metoprolol, prn IV Metoprolol for HR >115 - Holding Apixiban for likely surgical procedure Thursday 05/11 am ([place]) Status: Acute (3) Pressure ulcer: Problem comment: - Multiple sites x 4- right lower leg, right calcaneus stage 4, left calcaneal stage 3, right elbow stage 2 - Followed by [facility] clinic, most recent visit with Dr. Caldwell 05/08/2024 - Continue wound cares per current orders (//Tue) Status: Acute (4) G tube feedings: Problem comment: - initiated fall 2023 during lengthy hospitalization at [facility] for sepsis in the setting of aspiration pneumonia - currently on Jevity 1.5, Nutrition following and plans to increase protein intake in the setting of acute infection Status: Acute (5) Hypertensive kidney disease, stage II: Problem comment: - Creatinine 0.5, monitor Status: Acute (6) Mixed anxiety depressive disorder: Problem comment: - continue Valproic acid, Lexapro, Clonazepam Status: Acute (7) Hypertension: Problem comment: - age appropriate control on Metoprolol Status: Acute Plan - per above (continue IV abx, Podiatry consult, Nutrition consult) - sister Hillary updated by phone, questions answered Subjective Date Seen: 05/10/24 Interval history: Josue is a 73-year-old female with multiple comorbidities (chronic heel wounds, atrial fibrillation, CKD stage 2, GERD, Paget's disease, intellectual disability with nonverbal status, recurrent aspiration, feeding tube in place) who was admitted to the hospital yesterday for concerns of R heel osteomyelitis. She has a history of chronic wounds and follows with our wound clinic; seen there yesterday and noted to have exposed bone during debridement. Most reached and wound culture was collected on 04/24/2024 and grew a combination of GBS, Enterococcus, Pseudomonas, Staph aureus (the combination of Vancomycin and Zosyn covers all 4 of these bacteria, per culture results). Current wound culture from stay is + for GPC and GNR. Today, one of her blood cultures has resulted positive for GPC. On Vancomycin and Zosyn (05/09/24). MRI today with results below: 1. Posterior calcaneal ulceration with adjacent osteomyelitis, osseous volume loss of the calcaneus and destruction of the distal Achilles tendon. 2. Moderate Achilles tendinopathy. 3. Diffuse subcutaneous edema. 4. Diffuse muscular atrophy and edema. Dr. Villa from Podiatry is following, tentatively planning surgical intervention 05/10/24. Lives in a [place] [facility], sister Hillary ([phone]) is guardian. Exam Narrative: Exam Narrative: GEN: Awake, nonverbal, nods when asked about foot pain CV: RRR, No concerning murmurs R: LCTA bilaterally without concerning wheezing Ext: 2+ edema B feet, R heel is necrotic and malodorous with + drainage and exposed bone noted Skin: Other lower extremity wounds covered and not formally examined Neuro: Nonfocal Psych: Appropriate Const: Vital Signs, click to edit/add: Vital Signs - 24 hr 05/09/24 17:53 05/09/24 21:00 05/09/24 23:00 Temperature 98.6 F 98.3 F Pulse Rate 118 H Pulse Rate [Left P ulse Oximeter] 114 H Pulse Rate [Pulse Oximeter] 117 H Respiratory Rate 20 22 Blood Pressure [Le ft Arm] 144/79 H Blood Pressure [Ri ght Forearm] 118/62 Pulse Oximetry 93 97 Oxygen Delivery Me thod Room Air Room Air 05/10/24 00:05 05/10/24 00:13 05/10/24 02:05 Temperature Pulse Rate Pulse Rate [Left P ulse Oximeter] Pulse Rate [Pulse Oximeter] Respiratory Rate 22 Blood Pressure [Le ft Arm] 101/74 107/67 Blood Pressure [Ri ght Forearm] Pulse Oximetry 97 Oxygen Delivery Me thod Room Air 05/10/24 03:00 05/10/24 07:00 05/10/24 07:00 Temperature 98.2 F 98.6 F Pulse Rate Pulse Rate [Left P ulse Oximeter] 120 H 104 H 104 H Pulse Rate [Pulse Oximeter] Respiratory Rate 16 16 16 Blood Pressure [Le ft Arm] 107/74 139/68 Blood Pressure [Ri ght Forearm] Pulse Oximetry 100 96 Oxygen Delivery Me thod Room Air Room Air 05/10/24 08:31 Temperature Pulse Rate 100 Pulse Rate [Left P ulse Oximeter] Pulse Rate [Pulse Oximeter] Respiratory Rate Blood Pressure [Le ft Arm] Blood Pressure [Ri ght Forearm] Pulse Oximetry Oxygen Delivery Me thod Labs Labs: Laboratory Results - last 24 hr 05/09/24 05/10/24 18:37 05:53 WBC 8.68 7.76 RBC 3.39 L 3.24 L Hgb 9.1 L 8.7 L Hct 28.3 L 27.5 L MCV 84 85 MCH 27 27 MCHC 32 32 RDW Coeff of Cheryl 14.3 Plt Count 471 H 450 H Neut % (Auto) 73.6 H Lymph % (Auto) 15.0 L Imperial % (Auto) 10.5 Eos % (Auto) 0.5 Baso % (Auto) 0.3 Neut # (Auto) 6.40 Lymph # (Auto) 1.30 Imperial # (Auto) 0.90 Eos # (Auto) 0.04 Baso # (Auto) 0.03 Abs Immat Gran (auto) 0.01 Imm/Tot Granulo (auto) 0.1 Sodium 133 L Potassium 4.1 Chloride 98 Carbon Dioxide 28 Anion Gap 7 BUN 17 Creatinine 0.5 Estimated Creat Clear 55.80 Estimated GFR 100 Glucose 95 Lactate 0.8 Calcium 8.8 C-Reactive Protein 13.9 H Procalcitonin 0.05
[2024-05-10] MEDS: LORazepam 2 MG/ML inj 1 MG IVP (10:55)
[2024-05-10] MEDS: VANCOMYCIN 1.25 GM/250 ML 1.25 GM/250 ML PIGGYBACK IVPB (12:57)
--- NOTE | 2024-05-10 15:19 | PC.NURSE ---
Addendum entered by Robyn Novoa RN 05/10/24 16:46: 1630: Nursing cleansed wounds with acidic acid, covered w/ Aquacel and ABD per wound care order. Pt has a stage 3 wound on left heel. Stage 4 wound on right heel and a tunneling wound on the right calf. Mepilex applied to right elbow wound. Pt tolerated wound care. Tubigrip in place to hold dressings. Original Note: End of shift note: VS WNL. Afebrile. Pt is nonverbal. Vocalizes pain with movement of right leg. Bilat 3+ pitting edema noted on feet. Right heel has gangrene stage 4 wound. Bilat tubi miner placer and variable compression wrap and are C/D/I. IV in R wrist. Went to MRI this shift. DJ in place in LUQ. Moves with 2 assist praneeth. Incontinent of bladder. Tube feeding of Jevity 1.5, at 100 mls/hr. Dressing change done on wounds.
--- NOTE | 2024-05-10 16:34 | PC.NURSE ---
Addendum entered by Elvin Huff RN 05/12/24 01:26: right heel not left Addendum entered by Elvin Huff RN 05/12/24 01:24: left heel Original Note: left heel right heel
--- NOTE | 2024-05-10 17:51 | P.PODCN_ITS ---
[facility] - Podiatry Data of Consult Time Seen by Provider: 17:00 Date Seen: 05/10/24 Consult date: 05/10/24 Requesting physician: Daysi South MD Primary care provider: Rebeca Diaz Consult Narrative Reason for consult: Decubitus ulcer right heel with osteomyelitis Narrative: Vida Gunn is a 73 year old female who has been seen at [facility] for a chronic decubitus ulceration. Unfortunately this ulcer has worsened and become chronically infected with exposed bone. She was admitted to the hospital through the ED due to worsening changes of the ulceration. She is nonverbal but does make eye contact and is able to expressed discomfort. She is seen today with the nursing staff. From hospitalist H&P 05/09/24: Vida Gunn is a 73 year old female past medical history significant for atrial fibrillation on chronic anticoagulation, hypertension, hypertensive kidney disease stage 2, GERD, osteoarthritis, multiple pressure wounds, mixed anxiety depressive disorder, chronic cough, neurogenic bladder, Paget's disease, moderate intellectual disability is ad mitted to the medical floor from the ED for further management suspected worsening osteomyelitis. Patient is nonverbal. Does yell out with pain or randomly at times. I spoke with her caregiver, Toya, briefly. Patient was seen in the [facility] yesterday by Dr. Caldwell. At that time Dr. Caldwell notes significant changes in her right calcaneal wound. She attempted debridement at that time but is recommending surgical consultation for further debridement. Toya, her caregiver, denies known recent fevers. There have been no reports of vomiting. Patient is incontinent of stool and urine chronically. Sister is guardian. PCP is Dr. Diaz at [facility]. Patient is a full code. cc:: CC: Daysi South MD Review of Systems Status of ROS: Reports: unobtainable due to mental status [facility] Medical History Mixed anxiety depressive disorder ?F41.8 - Other specified anxiety disorders (ICD-10) Pressure ulcer ?L89.90 - Pressure ulcer of unspecified site, unspecified stage (ICD-10) Nonverbal ?R47.01 - Aphasia (ICD-10) Hypertensive kidney disease, stage II ?I12.9 - Hypertensive chronic kidney disease with stage 1 through stage 4 chronic kidney disease, or unspecified chronic kidney disease (ICD-10) ?N18.2 - Chronic kidney disease, stage 2 (mild) (ICD-10) Chronic cough ?R05.3 - Chronic cough (ICD-10) GERD (gastroesophageal reflux disease) ?K21.9 - Gastro-esophageal reflux disease without esophagitis (ICD-10) Atrial fibrillation ?I48.91 - Unspecified atrial fibrillation (ICD-10) Neurogenic bladder ?N31.9 - Neuromuscular dysfunction of bladder, unspecified (ICD-10) Osteoarthritis, knee ?M17.10 - Unilateral primary osteoarthritis, unspecified knee (ICD-10) Osteoarthritis, hip, bilateral ?M16.0 - Bilateral primary osteoarthritis of hip (ICD-10) Degenerative joint disease ?M19.90 - Unspecified osteoarthritis, unspecified site (ICD-10) Paget's disease OCD (obsessive compulsive disorder) ?F42.9 - Obsessive-compulsive disorder, unspecified (ICD-10) Foot drop, bilateral ?M21.371 - Foot drop, right foot (ICD-10) ?M21.372 - Foot drop, left foot (ICD-10) Heart murmur ?R01.1 - Cardiac murmur, unspecified (ICD-10) Hiatal hernia ?K44.9 - Diaphragmatic hernia without obstruction or gangrene (ICD-10) Anxiety ?F41.9 - Anxiety disorder, unspecified (ICD-10) Arthritis ?M19.90 - Unspecified osteoarthritis, unspecified site (ICD-10) Hypertension ?I10 - Essential (primary) hypertension (ICD-10) Social History What is your current living situation?: I presently have a place to live Problems where you live: unable to answer Problems where you live details: [facility] In the past 12 months, utilities in danger of being shut off: unable to answer In past 12 months, lack of transportation kept you from medical appts, meetings, work, or getting things needed for daily living: unable to answer In the past 12 mos, have been you worried that your food would run out before you had money to buy more?: unable to answer In the past 12 mos, the food you bought just didn't last and you didn't have money to buy more?: unable to answer Smoking Status: Never smoker Do you use any of these nicotine containing products: None Second hand tobacco smoke exposure: No How often do you have a drink containing alcohol: never AUDIT-C Alcohol total score: 0 Non-prescribed substance use: denies use How often does anyone, including family, friends and others, physically hurt you : unable to answer How often does anyone, including family, friends and others, insult or talk down to you: unable to answer How often does anyone, including family, friends and others, threaten you with harm: unable to answer How often does anyone, including family, friends and others, scream or curse at you: unable to answer Exam Narrative: Exam Narrative: General: She appears to be resting comfortably. Easily arousable. Makes eye contact. Vascular: Nonpalpable posterior tibial pulse and faintly palpable dorsalis pedis pulse right. Capillary fill time to the digits less than 3 seconds. Neuro: Difficult to assess but does respond to pain stimuli with motion of the limb. Musculoskeletal: Somewhat contracted position of the lower leg right. Muscle strength is present but can not be graded. Derm: Very large decubitus ulcer to the plantar and plantar lateral and plantar posterior right heel. Ulceration measures approximately 8 cm x 7 cm. There is exposed calcaneus on the posterior aspect. Achilles tendon is exposed and somewhat necrotic along the lateral aspect. Labs: Hemoglobin 8.7, white count 12.55 down to 7.76, neutrophils 9.5 down to 6.4 Blood cultures: Gram-positive cocci Wound culture: Strep agalactiae group B, Enterococcus, Pseudomonas, Staphylococcus aureus X-ray right foot: Changes concerning for osteomyelitis the posterior calcaneus MRI: Osteomyelitis to the posterior aspect of the calcaneus extending into the body. No abscess. Assessment: Right heel decubitus ulceration with underlying calcaneal osteomyelitis Plan: Patient has a severe right foot decubitus ulceration with underlying osteomyelitis. The infection is limb threatening at this point. She is in need of debridement of the wound and partial calcanectomy. I discussed with the patient as well as for guardian that this will be a staged process and that the initial surgery is to get the infection under control and all necrotic tissue including bone removed. She is nonambulatory still removal of majority of the calcaneus is most likely including portions of the Achilles tendon. I anticipate the need for 2nd surgery for continued debridement and possible wound VAC placement. There is very strong chance that below-knee amputation may be better option down the road once we know how much healthy tissue remains. I have not discussed this with the patient at this time. Patient's guardian is in agreement with proceeding with surgery tomorrow. Patient's anticoagulation has been stopped and she will be typed and crossed tomorrow as her hemoglobin is already low. Will check this postoperatively. Total time seen patient and coordinating care 60 minutes. Const: Vital Signs, click to edit/add: Vital Signs - 24 hr 05/09/24 17:53 05/09/24 21:00 05/09/24 23:00 Temperature 98.6 F 98.3 F Pulse Rate 118 H Pulse Rate [Left P ulse Oximeter] 114 H Pulse Rate [Pulse Oximeter] 117 H Respiratory Rate 20 22 Blood Pressure [Le ft Arm] 144/79 H Blood Pressure [Ri ght Forearm] 118/62 Pulse Oximetry 93 97 [facility] Room Air 05/10/24 00:05 05/10/24 00:13 05/10/24 02:05 Temperature Pulse Rate Pulse Rate [Left P ulse Oximeter] Pulse Rate [Pulse Oximeter] Respiratory Rate 22 Blood Pressure [Le ft Arm] 101/74 107/67 Blood Pressure [Ri ght Forearm] Pulse Oximetry 97 Oxygen Delivery Ri thod Room Air 05/10/24 03:00 05/10/24 07:00 05/10/24 07:00 Temperature 98.2 F 98.6 F Pulse Rate Pulse Rate [Left P ulse Oximeter] 120 H 104 H 104 H Pulse Rate [Pulse Oximeter] Respiratory Rate 16 16 16 Blood Pressure [Le ft Arm] 107/74 139/68 Blood Pressure [Ri ght Forearm] Pulse Oximetry 100 96 Oxygen Delivery Ri thod Room Air Room Air 05/10/24 08:31 05/10/24 11:00 Temperature 98.8 F Pulse Rate 100 Pulse Rate [Left P ulse Oximeter] 111 H Pulse Rate [Pulse Oximeter] Respiratory Rate 18 Blood Pressure [Le ft Arm] 138/69 Blood Pressure [Ri ght Forearm] Pulse Oximetry 94 Oxygen Delivery Ri thod Room Air Nail Debridement Qualifies If: Qualifiers If:: A patient qualifies for nail debridement if they have: 1 class A finding (Q7) 2 class B findings (Q8) OR 1 class B & 2 class C findings in addition to a primary condition (Q9)
[2024-05-10] MEDS: QUETIAPINE 100 MG TABLET 200 MG G-TUBE (21:15)
[2024-05-11] VITALS (23 sets, daily range): BP systolic 108–158; BP diastolic 55–89; PULSE 64–111; RESP 14–21; TEMP 36.1–37.4; O2SAT 91–96
[2024-05-11] MEDS: VANCOMYCIN 1.25 GM/250 ML 1.25 GM/250 ML PIGGYBACK IVPB ×2 (00:27→11:44)
--- NOTE | 2024-05-11 07:43 | PC.NURSE ---
Pt developmentally delayed and nonverbal at baseline. VSS. Checked, changed and repositioned throughout shift. Pt having copious amounts of loose stools. Tube feed stopped at 0330, NPO prior to surgery. Pt in bed, appears to be resting.?
--- NOTE | 2024-05-11 08:08 | P.IMPN_ITS ---
Assessment and Plan Assessment and plan (1) Osteomyelitis: Problem comment: - Right calcaneus, has wound that was first noted 01/30 per Epic chart, first visit to our wound center for this 02/2024 - Vancomycin and Zosyn (05/09/24), wound culture 04/24/24 + for Pseudomonas, Staph, GBS, Enterococcus - current wound culture pending, Blood culture + for GPC - will need to review plan of care with ID after formal culture results (pending intraoperative findings/cultures) - Podiatry following, plan OR intervention 05/11/24 Status: Acute (2) Atrial fibrillation with RVR: Problem comment: - continue home Metoprolol, prn IV Metoprolol for HR >115, currently rate controlled - Holding Apixaban for surgery 4 am (Steenblock) Status: Acute (3) Pressure ulcer: Problem comment: - Multiple sites x 4- right lower leg, right calcaneus stage 4, left calcaneal stage 3, right elbow stage 2 - Followed by [facility], most recent visit with Dr. Caldwell 05/08/2024 - Continue wound cares per current orders (T//Sat) Status: Acute (4) G tube feedings: Problem comment: - initiated fall 2023 during lengthy hospitalization at [facility] for sepsis in the setting of aspiration pneumonia - admitted on Jevity 1.5, Nutrition following and plans to increase protein intake (will likely change tube feedings) given acute on chronic wounds Status: Acute (5) Hypertensive kidney disease, stage II: Problem comment: - Creatinine 0.5, monitor Status: Acute (6) Mixed anxiety depressive disorder: Problem comment: - continue Valproic acid, Lexapro, Clonazepam Status: Acute (7) Hypertension: Problem comment: - age appropriate control on Metoprolol Status: Acute (8) Paget's disease: Problem comment: - of bone, h/o R femur ORIF - normal calcium Status: Acute Plan - per above (OR today) Subjective Date Seen: 05/11/24 Interval history: Josue is a 73-year-old female with multiple comorbidities (chronic wounds of BLE, atrial fibrillation, CKD stage 2, GERD, Paget's disease, intellectual disability with nonverbal status, recurrent aspiration, feeding tube in place) who was admitted to the hospital 05/09/24 for concerns of R heel osteomyelitis. She has been seen by our Wound Clinic since 02/2024; seen there 05/09/24 and noted to have exposed bone during debridement. Most recent wound culture (collected on 04/24/2024) grew a combination of GBS, Enterococcus, Pseudomonas, Staph aureus (the combination of Vancomycin and Zosyn covers all 4 of these bacteria, per culture results). Current wound culture from stay is + for GPC and GNR. Her blood cultures collected 05/09/24 have resulted positive for GPC (both aerobic and anaerobic elnior les). On Vancomycin and Zosyn (05/09/24). MRI 05/10 with results below: 1. Posterior calcaneal ulceration with adjacent osteomyelitis, osseous volume loss of the calcaneus and destruction of the distal Achilles tendon. 2. Moderate Achilles tendinopathy. 3. Diffuse subcutaneous edema. 4. Diffuse muscular atrophy and edema. Dr. Villa from Podiatry is following, planning surgical intervention today. Lives in a [place] [facility], sister Hillary ([phone]) is guardian. This morning, Josue is awake and nods when I ask about pain in her foot. RN notes that she's had foul smelling diarrhea this morning. Exam Narrative: Exam Narrative: GEN: Awake and laying in bed HEENT: EOMIs bilaterally, no scleral icterus CV: Irregularly irregular, rate 90s R: Breathing comfortably, no wheezing Ext: wounds covered this morning, not formally examined Psych: Nonverbal, answering yes/no appropriately, no agitation Const: Vital Signs, click to edit/add: Vital Signs - 24 hr 05/10/24 08:31 05/10/24 11:00 05/10/24 15:00 Temperature 98.8 F Pulse Rate 100 Pulse Rate [Left P ulse Oximeter] 111 H 91 Respiratory Rate 18 18 Blood Pressure [Le ft Arm] 138/69 Pulse Oximetry 94 Oxygen Delivery Me thod Room Air 05/10/24 15:00 05/10/24 15:00 05/10/24 19:00 Temperature 98.4 F 98.8 F Pulse Rate 101 H Pulse Rate [Left P ulse Oximeter] 91 92 Respiratory Rate 18 18 Blood Pressure [Le ft Arm] 114/83 129/65 Pulse Oximetry 100 99 Oxygen Delivery Me thod Room Air Room Air 05/10/24 23:00 05/10/24 23:00 05/10/24 23:00 Temperature 98.3 F Pulse Rate 70 Pulse Rate [Left P ulse Oximeter] 74 74 Respiratory Rate 14 14 Blood Pressure [Le ft Arm] 107/46 L Pulse Oximetry 99 Oxygen Delivery Me thod 05/11/24 03:00 05/11/24 07:20 Temperature Pulse Rate 103 H Pulse Rate [Left P ulse Oximeter] 95 Respiratory Rate 14 Blood Pressure [Le ft Arm] Pulse Oximetry [facility]
[2024-05-11 08:16] LABS: Basophils Absolute Auto 0.03 K/uL (0.00-0.30); Basophils Percent Auto 0.4 % (0.0-3.0); Eosinophils Absolute Auto 0.07 K/uL (0.00-0.50); Hematocrit 26.4 % (33.0-51.0); Hemoglobin* 8.3 gm/dL (12.0-16.0); Immature Granulocytes Abs Auto 0.01 K/uL (0.00-0.30); Immature Granulocytes Pct Auto 0.1 %; Lymphocytes Percent Auto 12.6 % (20-44); Mean Corpuscular HGB Conc 31 gm/dL (32-36); Mean Corpuscular Hemoglobin 27 pg (26-34); Mean Corpuscular Volume 85 fL (80-100); Monocytes Percent Auto 9.7 % (0.0-11.0); Neutrophils Percent Auto 76.2 % (42.0-72.0); Platelet Count* 424 K/uL (140-440); RDW Coefficient of Variation % 14.4 % (11.5-15.5); Red Blood Count 3.09 m/uL (4.00-5.20); White Blood Count* 7.32 K/uL (4.50-11.00)
[2024-05-11] MEDS: SODIUM CHLORIDE 0.9 % (FLUSH) 10 ML SYRINGE 5 ML IVF ×2 (08:16→22:12)
[2024-05-11] MEDS: 0.9 % SODIUM CHLORIDE 1000 ml 1,000 ML 125 ML IV (08:17)
[2024-05-11] MEDS: PIPERACILLIN/TAZOBACTAM 3.375 GM in 0.9 % SODIUM CHLORIDE Mini-bag 100 ML IVPB ×2 (08:17→22:04)
[2024-05-11 08:19] LABS: Chloride* 102 mmol/L (96-114); Potassium* 3.8 mmol/L (3.6-5.1); Sodium* 131 mmol/L (135-149)
[2024-05-11 08:21] LABS: Slide Review Reflex No
[2024-05-11 08:23] LABS: Anion Gap 4 mEq/L (7-15); Blood Urea Nitrogen* 16 mg/dL (7-30); Calcium* 8.8 mg/dL (8.4-10.6); Carbon Dioxide* 25 mmol/L (20-32); Creatinine* 0.4 mg/dL (0.5-1.5); Estimated Glomerular Filt Rate 106 ml/min; Glucose* 94 mg/dL (60-115)
[2024-05-11 08:37] LABS: C Reactive Protein* 13.8 mg/dL (0.5-1.0)
--- NOTE | 2024-05-11 09:18 | REH.OT ---
OT: Order received, chart reviewed, per MD at rounds patient is non-ambulatory at baseline in care home and uses praneeth lift. Nursing staff to use ceiling lift during hospitalization. Patient scheduled for surgery today and therapies to hold. Will check status post op whether any positioning, transfer or other ADL concerns for OT/PT to address.
[2024-05-11] MEDS: ESCITALOPRAM 10 MG TABLET 30 MG G-TUBE (09:34)
[2024-05-11] MEDS: VALPROIC ACID 500 MG G-TUBE ×2 (09:35→22:17)
[2024-05-11] MEDS: PANTOPRAZOLE SODIUM 40 MG INJ IVP (09:35)
[2024-05-11] MEDS: METOPROLOL TARTRATE 25 MG TABLET G-TUBE ×2 (09:35→21:50)
--- NOTE | 2024-05-11 13:20 | CRLHL7_ITS ---
For Patients: As a result of the Cures Act, medical imaging exams and procedure reports are released immediately into your electronic medical record. You may view this report before your referring provider. If you have questions, please contact your health care provider. Indication: Partial calcaneal resection Technique: One fluoroscopic view right ankle. Fluoroscopic time 0.6 seconds. IMPRESSION: Fluoroscopic guidance for partial resection of the calcaneus posteriorly. Dictated by Isidoro Herrera MD @ 05/12/2024 6:21:03 PM (Electronically Signed)
--- NOTE | 2024-05-11 13:29 | SUR.OPER ---
PATIENT BROUGHT TO OR #4 PER M/S BED.? Patient positioned PRONE on OR #4 bed.? The perioperative?team supported arms bilaterally on arm boards.? Final approval of positioning by surgeon.?
[2024-05-11 13:33] LABS: INR 1.15 (0.91-1.10); Prothrombin Time 15.5 Seconds
[2024-05-11] MEDS: LACTATED RINGERS 1000 ML 1,000 ML 125 ML IV (14:30)
--- NOTE | 2024-05-11 14:32 | W.PODPROC_ITS ---
Date of Procedure: 05/11/24 Surgeon: Yury Villa DPM Pre-op Diagnosis: 1. Osteomyelitis right calcaneus 2. Decubitus ulcer right heel 3. Decubitus ulcer left heel Post-op Diagnosis: 1. Osteomyelitis right calcaneus 2. Decubitus ulcer right heel 3. Decubitus ulcer left heel Type of Procedure: 1. I and D right heel wound with wide debridement 2. Partial calcanectomy right 3. Debridement left decubitus heel ulcer Indications: Patient has been admitted to the hospital with osteomyelitis of her right calcaneus. She has severe decubitus ulcerations to bilateral heels. She is in need of surgical intervention to control the infection she has become septic. I reviewed the procedure and potential complications with the patient and her guardian. Consent was obtained by phone from her guardian. Procedure Description: Patient brought the operating room and placed under general anesthesia on the operating room cart. She was and rolled into a prone position on the operating room table. Incision appropriately padded. She was prepped and draped in sterile fashion. Standard time-out protocol followed. Surgery started with sharp excisional debridement of the large eschar overlying the central and distal aspect of the wound. This was carried down to healthy bleeding margins. Once the eschar was removed a Versajet Wand was used to sharply excise remaining necrotic subcutaneous tissue back to healthy bleeding margins. At this point th e foot was exsanguinated the tourniquet inflated to 250 mm Hg. Majority of the Achilles tendon was necrotic and no longer adhered to bone and was excised sharply. A small portion of the lateral aspect of the tendon appeared healthy was left attached to the calcaneus at this point. Underlying calcaneus at this level was healthy in appearance. The central body of the calcaneus was extremely soft and necrotic. All necrotic bone was excised with a rongeur. Portions of bone sent for culture and to pathology. Debrided the bone will continue until bone appeared healthy. C-arm images confirmed significant resection of the body of the calcaneus. Versajet was then utilized to again debride the margins of the wound and deeper spaces removing all necrotic tissue. Tourniquet was released and all bleeding areas were cauterized. All areas of the bone appeared healthy and bleeding. Final wound measurements were 10 cm x 7 cm. Wound was irrigated with normal sterile saline. Saline moistened wet-to-dry dressing was then applied. We then turned our attention to the left heel decubitus ulcer. Significant necrosis noted throughout the wound to the subcutaneous tissues. No exposed bone noted. Achilles tendon was necrotic. Sharp excisional debridement performed with a scalpel followed by sharp excisional debridement with the VersaJet. Wound was debrided back to healthy bleeding margins with majority of the Achilles tendon removed. Small area of exposed bone underneath the lateral Achilles appears healthy. Wound measurements were 6 cm x 5 cm. Mepilex border dressing applied. Popliteal block was then performed by Anesthesia. Patient was transferred from OR to PACU vital signs stable vascular status intact to bilateral lower extremities. Anesthesia: GETA and regional Hemostasis: ankle Estimated blood loss (mL): 5 Specimens: specimen obtained, sent to pathology (Calcaneus bone sent to path and culture) Disposition: PACU
--- NOTE | 2024-05-11 14:56 | P.ANES_ITS ---
Anesthesia Charges Start Date/Time Anesthesia Start Date: 05/11/24 Anesthesia Start Time: 12:43 Stop Date/Time Anesthesia Stop Date: 05/11/24 Anesthesia Stop Time: 14:50 Summary Extremes of Age - Over 70 or under 1: LAB PACK CHEMIST Coding CPT Codes CPT Codes: ANESTH LOWER LEG SURGERY - 37586 ([id number]) QZ - LAB PACK CHEMIST SVC W/O PLATE FILLER BY , P3 - PATIENT W/SEVERE SYS DISEASE Additional Codes: Summary - Extremes of Age - Over 70 or under 1: LAB PACK CHEMIST ([id number])
--- NOTE | 2024-05-11 14:56 | W.ANESCHARGE ---
Anesthesia Charges Start Date/Time Anesthesia Start Date: 05/11/24 Anesthesia Start Time: 12:43 Stop Date/Time Anesthesia Stop Date: 05/11/24 Anesthesia Stop Time: 14:50 Summary Extremes of Age - Over 70 or under 1: PROJECT ENGINEERING MANAGER Coding CPT Codes CPT Codes: ANESTH LOWER LEG SURGERY - 34582 ([id number]) QZ - PROJECT ENGINEERING MANAGER SVC W/O TUCK POINTER HELPER BY , P3 - PATIENT W/SEVERE SYS DISEASE Additional Codes: Summary - Extremes of Age - Over 70 or under 1: PROJECT ENGINEERING MANAGER ([id number])
--- NOTE | 2024-05-11 14:57 | P.NB_ITS ---
Nerve Block Nerve Block Time Seen by Provider: 14:30 Date Seen: 05/11/24 Type of block requested by surgeon for post-operative analgesia: popliteal Side: right Time out performed: Yes Verification of patient name: Yes Verification of date of : Yes Site marking: site marked Name of person performing procedure: Blane Russell Assistants, if any: YEMI Feliciano Continuous monitoring Was continuous monitoring of O2 sat, B/P, medical office secretary, recorded every 15 minutes?: Yes Procedure Checklist: sterile prep, needles and gloves Ultrasound guided. Images saved: Yes Medications given in 5ml increments after negative aspiration: Ropivicaine %: 0.5 mL: 15 Needle gauge: 20 Patient tolerated procedure well: Yes Additional comments: Injected in 5mL increments after negative aspiration Block Charges Block Charge (with Pro Fee): Sciatic Nerve Use of Ultrasound Machine for Block: Yes- US Guidance/pain block
--- NOTE | 2024-05-11 15:20 | PC.NURSE ---
End of shift note: VS WNL. Afebrile. Patient is nonverbal. Patient was NPO this shift due to surgery today. GJ tube is patent and intact. Tubi adult educator and variable compressions on bilat lower legs.
--- NOTE | 2024-05-11 15:33 | SUR.PHASEI ---
patient nonverbal; flacc score zero
[2024-05-11] MEDS: TRAMADOL HCL 50 MG TABLET G-TUBE (18:42)
[2024-05-11] MEDS: QUETIAPINE 100 MG TABLET 200 MG G-TUBE (21:50)
[2024-05-11] MEDS: ENOXAPARIN 40 MG/0.4 ML INJ SUBCUT (21:50)
[2024-05-11] MEDS: ACETAMINOPHEN 500 MG TABLET 1000 MG G-TUBE (21:50)
--- NOTE | 2024-05-11 23:02 | PC.NURSE ---
Q2 repositioned and check and change PRN. Returned to the floor @ 1530 after surgery... VS stable. The patient was noted to be uncomfortable by making faces and grunting noises. I asked if she was in pain and she nodded yes.PRN medication was given. G/J tube patent.. tube feeding started at 1745 @ 100ml/hr, head of bed elevated. Bilateral legs elevated on pillows. Mepilex was placed on her sacrum and between her knees due to rigidity and stiffness to prevent potential sore. Meds crushed and administered through G tube, Fluid to be flushed per tube q6 hrs. Sindi LOUIS BSN
[2024-05-12] VITALS (9 sets, daily range): BP systolic 94–135; BP diastolic 42–75; PULSE 66–103; RESP 16–26; TEMP 36.1–36.8; O2SAT 93–97
[2024-05-12] MEDS: VANCOMYCIN 1.25 GM/250 ML 1.25 GM/250 ML PIGGYBACK IVPB ×2 (00:36→11:49)
[2024-05-12] MEDS: PIPERACILLIN/TAZOBACTAM 3.375 GM in 0.9 % SODIUM CHLORIDE Mini-bag 100 ML IVPB ×4 (04:38→21:30)
--- NOTE | 2024-05-12 06:32 | PC.NURSE ---
Pt tolerated her feeding well. Right foot has drainage coming through dressing. drsg reinforced with ABD pad applied with kerlix.
[2024-05-12 06:59] LABS: C.Difficile Negative (Negative); CDIFFEPI 027 PRESUMPTIVE NEGATIVE (Negative)
[2024-05-12 07:37] LABS: Basophils Absolute Auto 0.02 K/uL (0.00-0.30); Basophils Percent Auto 0.3 % (0.0-3.0); Eosinophils Absolute Auto 0.01 K/uL (0.00-0.50); Eosinophils Percent Auto 0.2 % (0.0-7.0); Hematocrit 24.7 % (33.0-51.0); Immature Granulocytes Abs Auto 0.01 K/uL (0.00-0.30); Immature Granulocytes Pct Auto 0.2 %; Lymphocytes Percent Auto 17.5 % (20-44); Mean Corpuscular HGB Conc 31 gm/dL (32-36); Mean Corpuscular Hemoglobin 27 pg (26-34); Mean Corpuscular Volume 87 fL (80-100); Monocytes Percent Auto 12.6 % (0.0-11.0); Neutrophils Absolute Auto 4.27 K/uL (1.7-7.0); Neutrophils Percent Auto 69.2 % (42.0-72.0); Platelet Count* 414 K/uL (140-440); RDW Coefficient of Variation % 14.6 % (11.5-15.5); Red Blood Count 2.84 m/uL (4.00-5.20); White Blood Count* 6.17 K/uL (4.50-11.00)
[2024-05-12 07:41] LABS: Hemoglobin* 7.7 gm/dL (12.0-16.0); Slide Review Reflex No
[2024-05-12 07:43] LABS: Chloride* 105 mmol/L (96-114); Sodium* 136 mmol/L (135-149)
[2024-05-12 07:44] LABS: Potassium* 4.1 mmol/L (3.6-5.1)
[2024-05-12 07:46] LABS: Blood Urea Nitrogen* 18 mg/dL (7-30); Creatinine* 0.4 mg/dL (0.5-1.5); Estimated Glomerular Filt Rate 106 ml/min
[2024-05-12 07:47] LABS: Anion Gap 5 mEq/L (7-15); Calcium* 8.5 mg/dL (8.4-10.6); Carbon Dioxide* 26 mmol/L (20-32); Glucose* 99 mg/dL (60-115)
[2024-05-12] MEDS: CETIRIZINE HCL 10 MG TABLET G-TUBE (09:39)
[2024-05-12] MEDS: VALPROIC ACID 500 MG G-TUBE ×3 (09:39→21:36)
[2024-05-12] MEDS: TRAMADOL HCL 50 MG TABLET G-TUBE ×3 (09:39→21:31)
[2024-05-12] MEDS: SODIUM CHLORIDE 0.9 % (FLUSH) 10 ML SYRINGE 5 ML IVF ×2 (09:39→21:32)
[2024-05-12] MEDS: PANTOPRAZOLE SODIUM 40 MG INJ IVP (09:39)
[2024-05-12] MEDS: ESCITALOPRAM 10 MG TABLET 30 MG G-TUBE (09:40)
[2024-05-12] MEDS: METOPROLOL TARTRATE 25 MG TABLET G-TUBE ×2 (09:40→21:31)
[2024-05-12] MEDS: ACETAMINOPHEN 500 MG TABLET 1000 MG G-TUBE ×3 (09:40→21:31)
--- NOTE | 2024-05-12 10:05 | P.PODPN_ITS ---
Podiatry-PN: Subj Subjective Time Seen by Provider: 09:45 Date Seen: 05/12/24 Interval history: S: Patient seen bedside this am following debridement of her right heel. She appears to be resting comfortably. Exam Narrative: Exam Narrative: O: She is afebrile vital signs stable. Removal of dressings from bilateral heels shows no additional necrosis. Remaining tissues appear healthy. Extensive exposed bone on the right. Small amount of active bleeding from the bone after dressing removal. This resolved with pressure. No significant e rythema. Edema remains. Hemoglobin: 7.7 Assessment: Sub post I and D bilateral heels postop day 1 Plan: Consider blood transfusion. Discussed with Dr. Dan. Plan for return to OR on Tuesday for application of wound VAC to the right. Continue to offload heels. With a dry dressing change with not adherent base layer on the right. Mepilex heel dressing to the left. VASHE moistened gauze to the upper leg wounds right. Const: Vital Signs, click to edit/add: Vital Signs - 24 hr 05/11/24 11:00 05/11/24 14:45 05/11/24 14:50 Temperature 98.1 F 97.1 F L Pulse Rate 65 65 Pulse Rate [Left P ulse Oximeter] 78 Respiratory Rate 20 14 18 Blood Pressure 110/55 L 108/56 L Blood Pressure [Le ft Arm] 131/86 Pulse Oximetry 96 95 94 Oxygen Delivery Me thod Room Air Nasal Cannula Oxygen Flow Rate 4 05/11/24 14:55 05/11/24 15:00 05/11/24 15:00 Temperature Pulse Rate 64 86 96 Pulse Rate [Left P ulse Oximeter] Respiratory Rate 20 21 Blood Pressure 109/55 L 124/69 Blood Pressure [Le ft Arm] Pulse Oximetry 93 94 Oxygen Delivery Me thod Oxygen Flow Rate 05/11/24 15:05 05/11/24 15:10 05/11/24 15:15 Temperature 97.2 F L Pulse Rate 72 71 79 Pulse Rate [Left P ulse Oximeter] Respiratory Rate 18 20 18 Blood Pressure 123/71 121/71 125/69 Blood Pressure [Le ft Arm] Pulse Oximetry 91 92 93 Oxygen Delivery Me thod Nasal Cannula Oxygen Flow Rate 2 05/11/24 15:20 05/11/24 15:30 05/11/24 15:45 Temperature 97.0 F L 97.8 F 97.3 F L Pulse Rate 74 102 H 95 Pulse Rate [Left P ulse Oximeter] Respiratory Rate 14 14 14 Blood Pressure 138/77 143/89 H 158/81 H Blood Pressure [Le ft Arm] Pulse Oximetry 96 94 94 Oxygen Delivery Me thod Nasal Cannula Oxygen Flow Rate 2 2 2 05/11/24 16:00 05/11/24 16:15 05/11/24 16:45 Temperature 97.9 F 97.9 F 97.9 F Pulse Rate 105 H 90 93 Pulse Rate [Left P ulse Oximeter] Respiratory Rate 16 16 16 Blood Pressure 151/76 H 149/80 H 140/78 H Blood Pressure [Le ft Arm] Pulse Oximetry 93 93 93 Oxygen Delivery Me thod Room Air Oxygen Flow Rate 1 1 05/11/24 17:15 05/11/24 18:15 05/11/24 19:00 Temperature 97.9 F 97.8 F 97.9 F Pulse Rate 101 H 102 H Pulse Rate [Left P ulse Oximeter] 111 H Respiratory Rate 16 16 16 Blood Pressure 115/80 140/85 H Blood Pressure [Le ft Arm] 139/80 Pulse Oximetry 94 95 95 Oxygen Delivery Me thod Room Air Oxygen Flow Rate 05/11/24 19:15 05/11/24 20:15 05/11/24 23:40 Temperature 97.9 F 98.2 F Pulse Rate 111 H 75 69 Pulse Rate [Left P ulse Oximeter] Respiratory Rate 18 16 Blood Pressure 139/80 139/75 Blood Pressure [Le ft Arm] Pulse Oximetry 95 95 Oxygen Delivery Me thod Room Air Oxygen Flow Rate 05/12/24 00:46 05/12/24 03:38 05/12/24 07:33 Temperature 97.6 F 97.8 F Pulse Rate 72 Pulse Rate [Left P ulse Oximeter] 66 71 Respiratory Rate 16 Blood Pressure Blood Pressure [Le ft Arm] 107/47 L 94/42 L Pulse Oximetry 93 96 Oxygen Delivery Me thod Room Air Room Air Oxygen Flow Rate 05/12/24 08:03 Temperature 98.1 F Pulse Rate Pulse Rate [Left P ulse Oximeter] 83 Respiratory Rate 20 Blood Pressure Blood Pressure [Le ft Arm] 121/62 Pulse Oximetry 97 Oxygen Delivery Me thod Room Air Oxygen Flow Rate Documenting provider has reviewed patient's vital signs: yes Podiatry-PN: Obj Labs Labs: Laboratory Results - last 24 hr 05/11/24 05/11/24 05/12/24 06:00 07:58 07:06 WBC 6.17 RBC 2.84 L Hgb 7.7 L* Hct 24.7 L MCV 87 MCH 27 MCHC 31 L RDW Coeff of Cheryl 14.6 Plt Count 414 Neut % (Auto) 69.2 Lymph % (Auto) 17.5 L [place] % (Auto) 12.6 H Eos % (Auto) 0.2 Baso % (Auto) 0.3 Neut # (Auto) 4.27 Lymph # (Auto) 1.10 [place] # (Auto) 0.80 Eos # (Auto) 0.01 Baso # (Auto) 0.02 Abs Immat Gran (auto) 0.01 Imm/Tot Granulo (auto) 0.2 INR 1.15 H Sodium 136 Potassium 4.1 Chloride 105 Carbon Dioxide 26 Anion Gap 5 L BUN 18 Creatinine 0.4 L Estimated Creat Clear 55.80 Estimated GFR 106 Glucose 99 Calcium 8.5 Stl C. diff Tox B Gene Negative Stl C. diff 027-NAP1-BI PRESUMPTIVE NEGATIVE
--- NOTE | 2024-05-12 16:23 | PC.NURSE ---
Shift Summary: Patient passive with cares. T&R side to side, legs elevated with 3 pillows. Dressings changed by this morning. Incontinent, cares performed by staff throughout shift. Patient unable to rate pain, heard moaning at times, PRN and scheduled medication given see APR.
--- NOTE | 2024-05-12 17:48 | P.IMPN_ITS ---
Assessment and Plan Assessment and plan (1) Osteomyelitis: Problem comment: - Right calcaneus, has wound that was first noted 01/30 per Epic chart, first visit to our wound center for this 02/2024 - Vancomycin and Zosyn (05/09/24), wound culture 04/24/24 + for Pseudomonas, Staph, GBS, Enterococcus - current wound culture pending, Blood culture + for GPC - will need to review plan of care with ID after formal culture results (pending intraoperative findings/cultures) - Podiatry following, plan OR intervention 05/11/24 Status: Acute (2) Nonverbal: Status: Acute (3) Pressure ulcer: Problem comment: - Multiple sites x 4- right lower leg, right calcaneus stage 4, left calcaneal stage 3, right elbow stage 2 - Followed by [facility], most recent visit with Dr. Caldwell 05/08/2024 - Continue wound cares per current orders (T/TH/Sat) Status: Acute (4) Atrial fibrillation with RVR: Problem comment: - continue home Metoprolol, - Holding Apixaban for surgery 4/7 am (Steenblock) Status: Acute (5) Mixed anxiety depressive disorder: Problem comment: - continue Valproic acid, Lexapro, Clonazepam Status: Acute (6) GERD (gastroesophageal reflux disease): Problem comment: Continue PPI Status: Acute (7) G tube feedings: Problem comment: - initiated fall 2023 during lengthy hospitalization at [facility] for sepsis in the setting of aspiration pneumonia - admitted on Jevity 1.5, Nutrition following and plans to increase protein intake (will likely change tube feedings) given acute on chronic wounds Status: Acute (8) Neurogenic bladder: Problem comment: - Incontinent, keep skin clean and dry Status: Acute (9) Discharge planning issues: Problem comment: Will likely need half-way placement for long-term IV antibiotics and wound care including wound VAC. Status: Acute Plan Continue in hospital for ongoing IV antibiotics, surgical wound care. Total Time Spent Total Time Spent: Total time spent today is 40 minutes in coordination of care and review of care plan with other providers. Subjective Date Seen: 05/12/24 Interval history: Admission HPI: Vida Gunn is a 73 year old female past medical history significant for atrial fibrillation on chronic anticoagulation, hypertension, hypertensive kidney disease stage 2, GERD, osteoarthritis, multiple pressure wounds, mixed anxiety depressive disorder, chronic cough, neurogenic bladder, Paget's disease, moderate intellectual disability is admitted to the medical floor from the ED for further management suspected worsening osteomyelitis. Patient is nonverbal and nonambulatory. Does yell out with pain or randomly at times. I spoke with her caregiver, Toya, briefly. Patient was seen in the Wound Care Clinic yesterday by Dr. Caldwell. At that time Dr. Caldwell notes significant changes in her right calcaneal wound. She attempted debridement at that time but is recommending surgical consultation for further debridement. Toya, her caregiver, denies known recent fevers. There have been no reports of vomiting. Patient is incontinent of stool and urine chronically. Sister is guardian. PCP is Dr. Diaz at [facility]. Patient is a full code. She was taken to the OR yesterday for debridement by Dr. Villa. See his notes for details. Surface cultures from admission show moderate MRSA, moderate Enterococcus faecalis, two Gram-negative rods with sensitivities pending. Wound cultures from April 24, 2 weeks ago showed group B strep, Enterococcus faecalis, Pseudomonas aeruginosa resistant to quinolones and MSSA. Exam Narrative: Exam Narrative: She is lying in bed. She shows some discomfort with dressing changes but otherwise appears comfortable. Breathing is unlabored. She is nonverbal. Respirations are clear to auscultation. Cardiovascular: S1, S2, regular rate and rhythm. Abdomen: Bowel sounds active. G-tube site is clean and dry without infection. Const: Vital Signs, click to edit/add: Vital Signs - 24 hr 05/11/24 18:15 05/11/24 19:00 05/11/24 19:15 Temperature 97.8 F 97.9 F 97.9 F Pulse Rate 102 H 111 H Pulse Rate [Left P ulse Oximeter] 111 H Respiratory Rate 16 16 18 Blood Pressure 140/85 H 139/80 Blood Pressure [Le ft Arm] 139/80 Pulse Oximetry 95 95 95 Oxygen Delivery Me thod Room Air 05/11/24 20:15 05/11/24 23:40 05/12/24 00:46 Temperature 98.2 F 97.6 F Pulse Rate 75 69 Pulse Rate [Left P ulse Oximeter] 66 Respiratory Rate 16 16 Blood Pressure 139/75 Blood Pressure [Le ft Arm] 107/47 L Pulse Oximetry 95 93 Oxygen Delivery Me thod Room Air Room Air 05/12/24 03:38 05/12/24 07:33 05/12/24 08:03 Temperature 97.8 F 98.1 F Pulse Rate 72 Pulse Rate [Left P ulse Oximeter] 71 83 Respiratory Rate 20 Blood Pressure Blood Pressure [Le ft Arm] 94/42 L 121/62 Pulse Oximetry 96 97 Oxygen Delivery Me thod Room Air Room Air 05/12/24 11:53 05/12/24 15:00 05/12/24 15:00 Temperature 98.2 F 97 F L Pulse Rate 103 H Pulse Rate [Left P ulse Oximeter] 97 Respiratory Rate 20 26 H Blood Pressure Blood Pressure [Le ft Arm] 123/75 134/63 Pulse Oximetry 93 95 Oxygen Delivery Me thod Room Air Room Air 05/12/24 15:00 Temperature Pulse Rate Pulse Rate [Left P ulse Oximeter] Respiratory Rate 26 H Blood Pressure Blood Pressure [Le ft Arm] Pulse Oximetry Oxygen Delivery Me thod Documenting provider has reviewed patient's vital signs: yes Labs Labs: Laboratory Results - last 24 hr 05/11/24 05/12/24 06:00 07:06 WBC 6.17 RBC 2.84 L Hgb 7.7 L* Hct 24.7 L MCV 87 MCH 27 MCHC 31 L RDW Coeff of Cheryl 14.6 Plt Count 414 Neut % (Auto) 69.2 Lymph % (Auto) 17.5 L [place] % (Auto) 12.6 H Eos % (Auto) 0.2 Baso % (Auto) 0.3 Neut # (Auto) 4.27 Lymph # (Auto) 1.10 [place] # (Auto) 0.80 Eos # (Auto) 0.01 Baso # (Auto) 0.02 Abs Immat Gran (auto) 0.01 Imm/Tot Granulo (auto) 0.2 Sodium 136 Potassium 4.1 Chloride 105 Carbon Dioxide 26 Anion Gap 5 L BUN 18 Creatinine 0.4 L Estimated Creat Clear 55.80 Estimated GFR 106 Glucose 99 Calcium 8.5 Stl C. diff Tox B Gene Negative Stl C. diff 027-NAP1-BI PRESUMPTIVE NEGATIVE
--- NOTE | 2024-05-12 19:26 | PC.NURSE ---
Nursing Care Hours: [id number] Pt this shift alert. Reposition x2, brief dry. Bilat feet pitting edema, R>L. No drainage noted through dressings, bilat legs elevated to level of heart. When pt asked if they have pain, pt nodded yes. However no available options in APR. G/J flushed and NOC feeding started at 100ml/hr. Pt removed IV. Hospitalist made aware. DC tele.
--- NOTE | 2024-05-12 20:21 | CRLHL7_ITS ---
For Patients: As a result of the Cures Act, medical imaging exams and procedure reports are released immediately into your electronic medical record. You may view this report before your referring provider. If you have questions, please contact your health care provider. Indication: PICC line placement Technique: Single view of the chest Comparison: None Findings/Impression: Left PICC terminates in the SVC. Examination is degraded due to patient rotation, question cardiomegaly and pulmonary edema. Dictated by Carloz Gonzales MD @ 05/12/2024 11:20:51 PM (Electronically Signed)
[2024-05-12] MEDS: QUETIAPINE 100 MG TABLET 200 MG G-TUBE (21:31)
[2024-05-12] MEDS: ENOXAPARIN 40 MG/0.4 ML INJ SUBCUT (21:32)
--- NOTE | 2024-05-12 21:49 | PC.NURSE ---
This RN called sister Hillary Roland at 2136 and received verbal consent to place PICC line. All questions answered.
[2024-05-13] MEDS: VANCOMYCIN 1.25 GM/250 ML 1.25 GM/250 ML PIGGYBACK IVPB ×2 (00:41→12:18)
[2024-05-13] MEDS: PIPERACILLIN/TAZOBACTAM 3.375 GM in 0.9 % SODIUM CHLORIDE Mini-bag 100 ML IVPB ×4 (02:20→20:03)
[2024-05-13 03:00] VITALS: RESP 16
--- NOTE | 2024-05-13 07:03 | PC.NURSE ---
Pt developmentally delayed and nonverbal at baseline, though able to answer basic yes or no questions. VSS. Pt stated pain when asked, prn medication provided. Pt has a new IV placed in the left forearm and had PICC placed in left upper arm. Pt turned and repositioned q2-3h. Incontinent, changed throughout shift. Dressings on LE bilaterally partially saturated Bilateral feet +3 - +4 pitting edema, heels floated throughout shift. Bedding changed. Pt 2 assist. Pt appears to be resting and comfortable. ?
[2024-05-13 07:12] LABS: Chloride* 106 mmol/L (96-114); Sodium* 138 mmol/L (135-149)
[2024-05-13 07:15] LABS: Blood Urea Nitrogen* 17 mg/dL (7-30); Creatinine* 0.4 mg/dL (0.5-1.5); Estimated Glomerular Filt Rate 106 ml/min
[2024-05-13 07:16] LABS: Anion Gap 5 mEq/L (7-15); Calcium* 8.8 mg/dL (8.4-10.6); Carbon Dioxide* 27 mmol/L (20-32); Glucose* 116 mg/dL (60-115)
[2024-05-13 07:18] LABS: Basophils Absolute Auto 0.04 K/uL (0.00-0.30); Basophils Percent Auto 0.7 % (0.0-3.0); Eosinophils Absolute Auto 0.09 K/uL (0.00-0.50); Eosinophils Percent Auto 1.6 % (0.0-7.0); Hematocrit 24.5 % (33.0-51.0); Immature Granulocytes Abs Auto 0.02 K/uL (0.00-0.30); Immature Granulocytes Pct Auto 0.4 %; Mean Corpuscular HGB Conc 31 gm/dL (32-36); Mean Corpuscular Hemoglobin 27 pg (26-34); Mean Corpuscular Volume 87 fL (80-100); Monocytes Percent Auto 11.8 % (0.0-11.0); Neutrophils Absolute Auto 3.39 K/uL (1.7-7.0); Neutrophils Percent Auto 60.5 % (42.0-72.0); Platelet Count* 329 K/uL (140-440); RDW Coefficient of Variation % 14.9 % (11.5-15.5); Red Blood Count 2.83 m/uL (4.00-5.20)
[2024-05-13 07:29] LABS: Hemoglobin* 7.7 gm/dL (12.0-16.0)
[2024-05-13 07:30] LABS: Slide Review Reflex No
[2024-05-13] MEDS: SODIUM CHLORIDE 0.9 % (FLUSH) 10 ML SYRINGE 5 ML IVF ×4 (07:37→20:03)
[2024-05-13 07:49] VITALS: BP 150/84; PULSE 107; RESP 20; TEMP 37.2; O2SAT 93
[2024-05-13] MEDS: TRAMADOL HCL 50 MG TABLET G-TUBE ×2 (07:58→13:38)
[2024-05-13] MEDS: PANTOPRAZOLE SODIUM 40 MG INJ IVP (09:38)
[2024-05-13] MEDS: ACETAMINOPHEN 500 MG TABLET 1000 MG G-TUBE ×3 (09:46→21:23)
[2024-05-13] MEDS: METOPROLOL TARTRATE 25 MG TABLET G-TUBE ×2 (09:46→21:23)
[2024-05-13] MEDS: ESCITALOPRAM 10 MG TABLET 30 MG G-TUBE (09:47)
[2024-05-13] MEDS: VALPROIC ACID 500 MG G-TUBE ×3 (09:47→21:22)
[2024-05-13] MEDS: CETIRIZINE HCL 10 MG TABLET G-TUBE (09:47)
[2024-05-13] MEDS: HYDROmorphone 0.5 mg/0.5 ml inj IVP (11:25)
--- NOTE | 2024-05-13 11:43 | P.PODPN_ITS ---
Podiatry-PN: Subj Subjective Time Seen by Provider: 11:00 Date Seen: 05/13/24 Interval history: Patient seen bedside today. she appears in good spirits and more engaged than yesterday. Less indication of pain with movement of the legs. Exam Narrative: Exam Narrative: O: She is afebrile vital signs stable. Removal of dressings from bilateral heels shows no additional necrosis. Remaining tissues appear healthy. Extensive exposed bone on the right. Far less active bleeding from the bone after dressing removal today. This resolved with pressure. No significant erythema. Edema remains. Hemoglobin: unchanged at 7.7 Assessment: Sub post I and D bilateral heels postop day 1 Plan: Plan for return to OR on Tuesday for repeat debridement and application of wound VAC to the right. Continue to offload heels. wet to dry dressing change with non adherent base layer on the right. Mepilex heel dressing to the left. VASHE moistened gauze wet to dry to the upper leg wounds right. Photos to be placed in nursing notes. Const: Vital Signs, click to edit/add: Vital Signs - 24 hr 05/12/24 11:53 05/12/24 15:00 05/12/24 15:00 Temperature 98.2 F 97 F L Pulse Rate 103 H Pulse Rate [Left P ulse Oximeter] 97 Respiratory Rate 20 26 H Blood Pressure Blood Pressure [Le ft Arm] 123/75 134/63 Pulse Oximetry 93 [facility] 05/12/24 15:00 05/12/24 19:00 05/12/24 22:23 Temperature 97.6 F 97.6 F Pulse Rate 91 Pulse Rate [Left P ulse Oximeter] 91 Respiratory Rate 26 H 18 18 Blood Pressure 108/51 L Blood Pressure [Le ft Arm] 135/75 Pulse Oximetry 95 94 [facility] Room Air 05/12/24 23:00 05/12/24 23:00 05/13/24 03:00 Temperature Pulse Rate Pulse Rate [Left P ulse Oximeter] 91 Respiratory Rate 16 16 16 Blood Pressure Blood Pressure [Le ft Arm] Pulse Oximetry Oxygen Delivery Hi thod 05/13/24 07:49 Temperature 98.9 F Pulse Rate Pulse Rate [Left P ulse Oximeter] 107 H Respiratory Rate 20 Blood Pressure Blood Pressure [Le ft Arm] 150/84 H Pulse Oximetry 93 Oxygen Delivery Me thod Room Air Documenting provider has reviewed patient's vital signs: yes Podiatry-PN: Obj Labs Labs: Laboratory Results - last 24 hr 05/13/24 06:00 WBC 5.60 RBC 2.83 L Hgb 7.7 L* Hct 24.5 L MCV 87 MCH 27 MCHC 31 L RDW Coeff of Cheryl 14.9 Plt Count 329 Neut % (Auto) 60.5 Lymph % (Auto) 25.0 [place] % (Auto) 11.8 H Eos % (Auto) 1.6 Baso % (Auto) 0.7 Neut # (Auto) 3.39 Lymph # (Auto) 1.40 [place] # (Auto) 0.70 Eos # (Auto) 0.09 Baso # (Auto) 0.04 Abs Immat Gran (auto) 0.02 Imm/Tot Granulo (auto) 0.4 Sodium 138 Potassium 4.0 Chloride 106 Carbon Dioxide 27 Anion Gap 5 L BUN 17 Creatinine 0.4 L Estimated Creat Clear 55.80 Estimated GFR 106 Glucose 116 H Calcium 8.8
--- NOTE | 2024-05-13 12:12 | PM.ANPOST ---
Post Anesthesia Note Post Anesthesia Note Patient seen: Inpatient Respiratory Status: adequate Cardiovascular Status: adequate Mental Status: baseline Pain: adequate Temp: baseline Anesthetic awareness: N/A Complications: none Follow care: none
[2024-05-13 12:26] VITALS: BP 137/80; PULSE 103; RESP 20; TEMP 36.6; O2SAT 93
--- NOTE | 2024-05-13 12:33 | PC.NURSE ---
left heel 4/6 right leg right leg right heel right heel
--- NOTE | 2024-05-13 12:41 | PM.IMPN1 ---
Assessment and Plan Assessment and plan (1) Osteomyelitis: Problem comment: - Right calcaneus, has wound that was first noted 01/30 per Epic chart, first visit to our wound center for this 02/2024 - Vancomycin and Zosyn (05/09/24), wound culture 04/24/24 + for Pseudomonas, Staph, GBS, Enterococcus - superficial wound cultures from May 10 admission show Enterococcus faecalis, MRSA, Klebsiella pneumonia, Pseudomonas aeruginosa resistant to quinolones - Blood culture + Staph epidermidis. Probable contaminate - will need to review plan of care with ID after formal culture results (pending intraoperative findings/cultures) - Podiatry following, plan repeat OR intervention 05/14/24 Status: Acute (2) Pressure ulcer: Problem comment: - Multiple sites x 4- right lower leg, right calcaneus stage 4, left calcaneal stage 3, right elbow stage 2 - Followed by [facility] wound clinic, most recent visit with Dr. Caldwell 05/08/2024 - Continue wound cares per current orders (T/TH/Sat) Status: Acute (3) Nonverbal: Status: Acute (4) Atrial fibrillation with RVR: Problem comment: - rate controlled - Holding Apixaban for surgery 4/7 am (Steenblock) Status: Acute (5) Mixed anxiety depressive disorder: Problem comment: - continue Valproic acid, Lexapro, Clonazepam Status: Acute (6) GERD (gastroesophageal reflux disease): Problem comment: Continue PPI Status: Acute (7) G tube feedings: Problem comment: - initiated fall 2023 during lengthy hospitalization at [facility] for sepsis in the setting of aspiration pneumonia - admitted on Jevity 1.5, Nutrition following and plans to increase protein intake (will likely change tube feedings) given acute on chronic wounds Status: Acute (8) Neurogenic bladder: Problem comment: - Incontinent, keep skin clean and dry Status: Acute (9) Discharge planning issues: Problem comment: Will likely need custodial placement for several weeks of IV antibiotics and wound care including wound VAC. probable custodial placement around May 17. Status: Acute Plan Continue in hospital for IV antibiotics and ongoing surgical management of osteomyelitis. Total Time Spent Total Time Spent: Total time spent today is 35 minutes in coordination of care and discussing with other providers ongoing management of osteomyelitis Subjective Date Seen: 05/13/24 Interval history: Admission HPI: Vida Gunn is a 73 year old female past medical history significant for atrial fibrillation on chronic anticoagulation, hypertension, hypertensive kidney disease stage 2, GERD, osteoarthritis, multiple pressure wounds, mixed anxiety depressive disorder, chronic cough, neurogenic bladder, Paget's disease, moderate intellectual disability is admitted to the medical floor from the ED for further management suspected worsening osteomyelitis. Patient is nonverbal and nonambulatory. Does yell out with pain or randomly at times. I spoke with her caregiver, Toya, briefly. Patient was seen in the Wound Care Clinic yesterday by Dr. Caldwell. At that time Dr. Caldwell notes significant changes in her right calcaneal wound. She attempted debridement at that time but is recommending surgical consultation for further debridement. Toya, her caregiver, denies known recent fevers. There have been no reports of vomiting. Patient is incontinent of stool and urine chronically. Sister is guardian. PCP is Dr. Diaz at [facility]. Patient is a full code. She was taken to the OR yesterday for debridement by Dr. Villa. See his notes for details. Surgical culture from May 11, bone culture, growing MRSA Surface cultures from admission on May 10 show moderate MRSA, moderate Enterococcus faecalis, two Gram-negative rods with sensitivities pending. Blood culture from May 09 growing Staph epidermidis in 1 bottle. Suspected contaminant. Wound cultures from April 24, 2 weeks ago showed group B strep, Enterococcus faecalis, Pseudomonas aeruginosa resistant to quinolones and MSSA. Exam Narrative: Exam Narrative: She is lying in bed, responsive to dressing changes indicating pain with manipulation of her foot and legs but otherwise appears comfortable. Nonverbal but appears to respond to simple communications with her eyes and facial expression. Respirations are clear to auscultation. Cardiovascular: S1, S2, regular rate and rhythm. Abdomen is soft without tenderness or mass. Lower extremities are examined as a part of the dressing changes by Dr. Villa. Ulcers on the lateral right leg noted and photographed. Right heel with fairly large deep ulcer to bone at the base of the calcaneus. Mild surrounding erythema for all these wounds. Const: Vital Signs, click to edit/add: Vital Signs - 24 hr 05/12/24 15:00 05/12/24 15:00 05/12/24 15:00 Temperature 97 F L Pulse Rate 103 H Pulse Rate [Left P ulse Oximeter] Respiratory Rate 26 H 26 H Blood Pressure Blood Pressure [Le ft Arm] 134/63 Pulse Oximetry 95 Oxygen Delivery Me thod Room Air 05/12/24 19:00 05/12/24 22:23 05/12/24 23:00 Temperature 97.6 F 97.6 F Pulse Rate 91 Pulse Rate [Left P ulse Oximeter] 91 Respiratory Rate 18 18 16 Blood Pressure 108/51 L Blood Pressure [Le ft Arm] 135/75 Pulse Oximetry 95 94 Oxygen Delivery Me thod Room Air Room Air 05/12/24 23:00 05/13/24 03:00 05/13/24 07:49 Temperature 98.9 F Pulse Rate Pulse Rate [Left P ulse Oximeter] 91 107 H Respiratory Rate 16 16 20 Blood Pressure Blood Pressure [Le ft Arm] 150/84 H Pulse Oximetry 93 Oxygen Delivery Me thod Room Air 05/13/24 12:26 Temperature 98 F Pulse Rate Pulse Rate [Left P ulse Oximeter] 103 H Respiratory Rate 20 Blood Pressure Blood Pressure [Le ft Arm] 137/80 Pulse Oximetry 93 Oxygen Delivery Me thod Room Air Documenting provider has reviewed patient's vital signs: yes Labs Labs: Laboratory Results - last 24 hr 05/13/24 06:00 WBC 5.60 RBC 2.83 L Hgb 7.7 L* Hct 24.5 L MCV 87 MCH 27 MCHC 31 L RDW Coeff of Cheryl 14.9 Plt Count 329 Neut % (Auto) 60.5 Lymph % (Auto) 25.0 [place] % (Auto) 11.8 H Eos % (Auto) 1.6 Baso % (Auto) 0.7 Neut # (Auto) 3.39 Lymph # (Auto) 1.40 [place] # (Auto) 0.70 Eos # (Auto) 0.09 Baso # (Auto) 0.04 Abs Immat Gran (auto) 0.02 Imm/Tot Granulo (auto) 0.4 Sodium 138 Potassium 4.0 Chloride 106 Carbon Dioxide 27 Anion Gap 5 L BUN 17 Creatinine 0.4 L Estimated Creat Clear 55.80 Estimated GFR 106 Glucose 116 H Calcium 8.8
[2024-05-13 15:00] VITALS: BP 141/78; PULSE 82; RESP 20; TEMP 36.6; O2SAT 96
--- NOTE | 2024-05-13 15:00 | PC.NURSE ---
Shift Summary: Patient pleasant and cooperative. T&R q2h, brief checked and changed as needed. Vitals stable and WNL, increased HR/RR/BP when experiencing pain. Pain managed with elevating heels off bed with 3 pillows and PRN/scheduled medication, see APR. Dressings done by Dr. Villa this morning. PICC redressed and covered with tubigrip. Patient has tubigrip and compression on bilat calves. Head elevated when giving medications through tube. Lung sounds clear.
[2024-05-13 19:00] VITALS: BP 146/86; PULSE 108; RESP 20; TEMP 36.6; O2SAT 94
--- NOTE | 2024-05-13 19:24 | PC.NURSE ---
End of Shift: VSS, afebrile. repositioned q2 this shift. refused tube feeding this shift.
[2024-05-13] MEDS: QUETIAPINE 100 MG TABLET 200 MG G-TUBE (21:22)
[2024-05-13 23:00] VITALS: BP 113/55; PULSE 78; RESP 20; TEMP 36.7; O2SAT 96
[2024-05-14] VITALS (28 sets, daily range): BP systolic 96–180; BP diastolic 49–110; PULSE 74–114; RESP 16–34; TEMP 36.6–37.3; O2SAT 90–100
[2024-05-14] MEDS: VANCOMYCIN 1.25 GM/250 ML 1.25 GM/250 ML PIGGYBACK IVPB ×2 (00:30→12:50)
[2024-05-14] MEDS: PIPERACILLIN/TAZOBACTAM 3.375 GM in 0.9 % SODIUM CHLORIDE Mini-bag 100 ML IVPB ×4 (02:15→20:25)
--- NOTE | 2024-05-14 05:58 | PC.NURSE ---
[id number] Pt repo q2-3 hours, tolerated fair. G/J tube feeding started approx 1999, tolerating well. liquid stool during shift, copious amount.
[2024-05-14 06:30] LABS: Basophils Absolute Auto 0.04 K/uL (0.00-0.30); Basophils Percent Auto 0.7 % (0.0-3.0); Eosinophils Absolute Auto 0.19 K/uL (0.00-0.50); Eosinophils Percent Auto 3.3 % (0.0-7.0); Hematocrit 23.8 % (33.0-51.0); Immature Granulocytes Abs Auto 0.02 K/uL (0.00-0.30); Immature Granulocytes Pct Auto 0.3 %; Lymphocytes Percent Auto 18.8 % (20-44); Mean Corpuscular HGB Conc 31 gm/dL (32-36); Mean Corpuscular Hemoglobin 27 pg (26-34); Mean Corpuscular Volume 87 fL (80-100); Monocytes Percent Auto 10.2 % (0.0-11.0); Neutrophils Absolute Auto 3.86 K/uL (1.7-7.0); Neutrophils Percent Auto 66.7 % (42.0-72.0); Platelet Count* 430 K/uL (140-440); RDW Coefficient of Variation % 15.2 % (11.5-15.5); Red Blood Count 2.73 m/uL (4.00-5.20); White Blood Count* 5.79 K/uL (4.50-11.00)
[2024-05-14 06:33] LABS: Hemoglobin* 7.4 gm/dL (12.0-16.0); Slide Review Reflex No
[2024-05-14 06:55] LABS: Chloride* 108 mmol/L (96-114); Potassium* 4.2 mmol/L (3.6-5.1); Sodium* 138 mmol/L (135-149)
[2024-05-14 06:58] LABS: Anion Gap 2 mEq/L (7-15); Blood Urea Nitrogen* 15 mg/dL (7-30); Calcium* 8.6 mg/dL (8.4-10.6); Carbon Dioxide* 28 mmol/L (20-32); Creatinine* 0.4 mg/dL (0.5-1.5); Estimated Glomerular Filt Rate 106 ml/min; Glucose* 137 mg/dL (60-115)
[2024-05-14] MEDS: METOPROLOL TARTRATE 25 MG TABLET G-TUBE ×2 (08:44→20:37)
[2024-05-14] MEDS: ACETAMINOPHEN 500 MG TABLET 1000 MG G-TUBE ×2 (08:44→20:30)
[2024-05-14] MEDS: PANTOPRAZOLE SODIUM 40 MG INJ IVP (08:45)
[2024-05-14] MEDS: CETIRIZINE HCL 10 MG TABLET G-TUBE (08:45)
[2024-05-14] MEDS: SODIUM CHLORIDE 0.9 % (FLUSH) 10 ML SYRINGE 5 ML IVF ×3 (08:45→20:31)
[2024-05-14] MEDS: ESCITALOPRAM 10 MG TABLET 30 MG G-TUBE (08:45)
[2024-05-14] MEDS: VALPROIC ACID 500 MG G-TUBE ×2 (08:45→20:30)
[2024-05-14] MEDS: 0.9 % SODIUM CHLORIDE 500 ML 250 ML IV (09:52)
--- NOTE | 2024-05-14 11:36 | CRLHL7_ITS ---
For Patients: As a result of the Century Cures Act, medical imaging exams and procedure reports are released immediately into your electronic medical record. You may view this report before your referring provider. If you have questions, please contact your health care provider. Indication: Abnormal breath sounds and respiration Technique: Chest 1 view Comparison: Chest x-ray 05/12/2024 Findings/Impression: Cardiovascular and mediastinum: Cardiomegaly. Left-sided PICC line with tip at the cavoatrial junction. Lungs and pleural space: No pleural effusion or pneumothorax. Bilateral diffuse reticular interstitial prominence suggesting pulmonary edema and increased compared to the study of 2 days prior. Bones and soft tissues: Patchy sclerosis and thickening of the bones near the shoulder girdles which can be seen in metabolic bone disease. Dictated by Suhas Noel MD @ 05/14/2024 12:27:22 PM (Electronically Signed)
[2024-05-14 12:10] LABS: C Reactive Protein* 4.4 mg/dL (0.5-1.0)
[2024-05-14 12:23] LABS: NT Pro B Type NatriureticPept* 2970 pg/mL; Troponin I* < 0.01 ng/mL (0.01-0.04)
[2024-05-14] MEDS: FUROSEMIDE 10 MG/ML inj 40 MG IVP (12:43)
--- NOTE | 2024-05-14 13:54 | PC.SOCIAL ---
Addendum entered and electronically signed by Vida Aragon LCSW 05/14/24 14:59: CASIMIRO secure emailed [facility] with [facility] inquiring about ability to meet a general patient's need with Luis E lift, non-verbal, wound vac, IV antibiotics, incontinence, and tube feeding. CASIMIRO did not send specific PHI. [facility] responded that they may be able to accommodate patient as they complete IV antibiotics and tube feeds at all their locations, however, did not comment on the would vac and Luis E lift. Original Note: Discharge Planning: CASIMIRO called patient's guardian/sister Hillary to discuss placement for patient. Hillary states that patient wouldn't be allowed to go back to her retirement on IV antibiotics as she was talking with the retirement Nurse Reena who states they aren't able to do this care. Hillary reports the hospital has her full permission to talk with the retirement RN Reena Dong at [phone]. SW also discussed the likely need for a wound vac. SW discussed needing placement for patient until she can go home and inquired about past placement stays. Hillary reports that patient hasn't need rehab/placement since the when patient broke her leg and doesn't know of any recommendations from family/friends. SW discussed the challenges that can come with a placement when a patient has a wound vac, Hillary expressed understanding. CASIMIRO explained that she would call around to determine places that accept wound vacs and then talk with her about options. CASIMIRO spoke with Reena to see if she knew of any placements that other residents had used in the past. Reena said she wasn't sure of any that could handle wound vac with all of the closures and short staffing of places. Reena confirmed they would not be able to take patient with IV antibiotics and wound vac.
--- NOTE | 2024-05-14 14:16 | P.IMPN_ITS ---
Assessment and Plan Assessment and plan (1) Osteomyelitis: Problem comment: - Right calcaneus, has wound that was first noted 01/30 per Epic chart, first visit to our wound center for this 02/2024 - Vancomycin and Zosyn (05/09/24), wound culture 04/24/24 + for Pseudomonas, Staph, GBS, Enterococcus - superficial wound cultures from May 10 admission show Enterococcus faecalis, MRSA, Klebsiella pneumonia, Pseudomonas aeruginosa resistant to quinolones - Blood culture + Staph epidermidis. Probable contaminate - will need to review plan of care with ID after formal culture results (pending intraoperative findings/cultures) - Podiatry following, plan repeat OR intervention 05/14/24 Status: Acute (2) Pressure ulcer: Problem comment: - Multiple sites x 4- right lower leg, right calcaneus stage 4, left calcaneal stage 3, right elbow stage 2 - Followed by [facility], most recent visit with Dr. Caldwell 05/08/2024 - Continue wound cares per current orders (T/TH/Sat) Status: Acute (3) Nonverbal: Status: Acute (4) Atrial fibrillation with RVR: Problem comment: - rate controlled - Holding Apixaban for surgery 4/7 am (Steenblock) Status: Acute (5) Mixed anxiety depressive disorder: Problem comment: - continue Valproic acid, Lexapro, Clonazepam Status: Acute (6) GERD (gastroesophageal reflux disease): Problem comment: Continue PPI Status: Acute (7) G tube feedings: Problem comment: - initiated fall 20[address] [facility] for sepsis in the setting of aspiration pneumonia - admitted on Jevity 1.5, Nutrition following and plans to increase protein intake (will likely change tube feedings) given acute on chronic wounds Status: Acute (8) Neurogenic bladder: Problem comment: - Incontinent, keep skin clean and dry Status: Acute (9) Discharge planning issues: Problem comment: Will likely need skilled nursing placement for several weeks of IV antibiotics and wound care including wound VAC. probable skilled nursing placement around May 17. Status: Acute (10) Heart failure: Problem comment: Patient has developed pulmonary edema during this hospital stay. Initiate diuretic therapy. Obtain echo. Status: Acute Plan Continue in hospital for IV antibiotics, surgery and Wound Care, management of pulmonary edema/heart failure. Total Time Spent Total Time Spent: Total time spent today is 60 minutes in coordination of care and discussing with other providers management of acute dyspnea/heart failure in preparation for surgery today Subjective Date Seen: 05/14/24 Interval history: Admission HPI: Vida Gunn is a 73 year old female past medical history significant for atrial fibrillation on chronic anticoagulation, hypertension, hypertensive kidney disease stage 2, GERD, osteoarthritis, multiple pressure wounds, mixed anxiety depressive disorder, chronic cough, neurogenic bladder, Paget's disease, moderate intellectual disability is admitted to the medical floor from the ED for further management suspected worsening osteomyelitis. Patient is nonverbal and nonambulatory. Does yell out with pain or randomly at times. I spoke with her caregiver, Toya, briefly. Patient was seen in the Wound Care Clinic yesterday by Dr. Caldwell. At that time Dr. Caldwell notes si gnificant changes in her right calcaneal wound. She attempted debridement at that time but is recommending surgical consultation for further debridement. Toya, her caregiver, denies known recent fevers. There have been no reports of vomiting. Patient is incontinent of stool and urine chronically. Sister is guardian. PCP is Dr. Diaz at [facility]. Patient is a full code. She was taken to the OR yesterday for debridement by Dr. Villa. See his notes for details. Surgical culture from May 11, bone culture, growing MRSA Surface cultures from admission on May 10 show moderate MRSA, moderate Enterococcus faecalis, two Gram-negative rods with sensitivities pending. Blood culture from May 09 growing Staph epidermidis in 1 bottle. Suspected contaminant. Wound cultures from April 24, 2 weeks ago showed group B strep, Enterococcus faecalis, Pseudomonas aeruginosa resistant to quinolones and MSSA. Patient received 1 unit blood transfusion today for gradually progressive anemia. She is observed to be, little tachycardic and diaphoretic during this. Further evaluation suggested that she had some crackles in her lung bases. Based on this chest x-ray is obtained confirming suspected pulmonary edema. Given IV furosemide with marked improvement in her respiratory status. Exam Narrative: Exam Narrative: Initially seen in she is mildly diaphoretic, mildly tachycardic and mildly tachypneic. Respirations show bibasilar crackles low more prominent on the right than the left. Mildly increased work of breathing. Upper lung sounds are clear. Cardiovascular: S1, S2, relatively regular tachycardia. Abdomen is soft without tenderness or mass. Const: Vital Signs, click to edit/add: Vital Signs - 24 hr 05/13/24 15:00 05/13/24 15:00 05/13/24 19:00 Temperature 97.8 F 97.8 F Pulse Rate Pulse Rate [Left P ulse Oximeter] 82 82 108 H Respiratory Rate 20 20 20 Blood Pressure Blood Pressure [Le ft Arm] 141/78 H Blood Pressure [Ri ght Arm] 146/86 H Pulse Oximetry 96 94 Oxygen Delivery Me thod Room Air Room Air 05/13/24 23:00 05/14/24 03:00 05/14/24 08:05 Temperature 98.1 F 97.9 F 99.0 F Pulse Rate Pulse Rate [Left P ulse Oximeter] 78 74 110 H Respiratory Rate 20 16 20 Blood Pressure Blood Pressure [Le ft Arm] Blood Pressure [Ri ght Arm] 113/55 L 156/97 H Pulse Oximetry 96 94 Oxygen Delivery Me thod Room Air Room Air 05/14/24 09:47 05/14/24 10:11 05/14/24 10:30 Temperature 98.4 F 98.4 F 98.5 F Pulse Rate 107 H 81 104 H Pulse Rate [Left P ulse Oximeter] Respiratory Rate 20 20 20 Blood Pressure 158/101 H 148/80 H 157/101 H Blood Pressure [Le ft Arm] Blood Pressure [Ri ght Arm] Pulse Oximetry 94 94 95 Oxygen Delivery Me thod Room Air Room Air Room Air 05/14/24 11:00 05/14/24 11:30 05/14/24 11:30 Temperature 98.0 F 97.9 F 97.9 F Pulse Rate 108 H 111 H Pulse Rate [Left P ulse Oximeter] 111 H Respiratory Rate 20 24 24 Blood Pressure 153/104 H 180/99 H Blood Pressure [Le ft Arm] Blood Pressure [Ri ght Arm] 180/99 H Pulse Oximetry 94 95 95 Oxygen Delivery Me thod Room Air Room Air Room Air 05/14/24 12:00 05/14/24 12:48 Temperature 98.1 F 98.4 F Pulse Rate 109 H Pulse Rate [Left P ulse Oximeter] Respiratory Rate 20 34 H Blood Pressure 172/106 H Blood Pressure [Le ft Arm] Blood Pressure [Ri ght Arm] Pulse Oximetry 94 Oxygen Delivery Me thod Room Air Room Air Documenting provider has reviewed patient's vital signs: yes Labs Labs: Laboratory Results - last 24 hr 05/11/24 05/14/24 05/14/24 07:58 06:09 11:42 WBC 5.79 RBC 2.73 L Hgb 7.4 L* Hct 23.8 L MCV 87 MCH 27 MCHC 31 L RDW Coeff of Cheryl 15.2 Plt Count 430 Neut % (Auto) 66.7 Lymph % (Auto) 18.8 L [place] % (Auto) 10.2 Eos % (Auto) 3.3 Baso % (Auto) 0.7 Neut # (Auto) 3.86 Lymph # (Auto) 1.10 [place] # (Auto) 0.60 Eos # (Auto) 0.19 Baso # (Auto) 0.04 Abs Immat Gran (auto) 0.02 Imm/Tot Granulo (auto) 0.3 Sodium 138 Potassium 4.2 Chloride 108 Carbon Dioxide 28 Anion Gap 2 L BUN 15 Creatinine 0.4 L Estimated Creat Clear 55.80 Estimated GFR 106 Glucose 137 H Calcium 8.6 Troponin I < 0.01 C-Reactive Protein 4.4 H NT-Pro-B Natriuret Pep 2970 Lab Acknowledgement Test Added Blood Type O Positive Antibody Screen NEGATIVE Crossmatch ([facility]) See Detail See Detail 05/14/24 11:42 WBC RBC Hgb Hct MCV MCH MCHC RDW Coeff of Cheryl Plt Count Neut % (Auto) Lymph % (Auto) [place] % (Auto) Eos % (Auto) Baso % (Auto) Neut # (Auto) Lymph # (Auto) [place] # (Auto) Eos # (Auto) Baso # (Auto) Abs Immat Gran (auto) Imm/Tot Granulo (auto) Sodium Potassium Chloride Carbon Dioxide Anion Gap BUN Creatinine Estimated Creat Clear Estimated GFR Glucose Calcium Troponin I C-Reactive Protein NT-Pro-B Natriuret Pep Lab Acknowledgement Test Added Blood Type Antibody Screen Crossmatch (G)
[2024-05-14] MEDS: LACTATED RINGERS 1000 ML 1,000 ML 35 ML IV (14:22)
[2024-05-14] MEDS: BUPIVACAINE 0.25% 30 ML 14 ML INJECTION (15:44)
--- NOTE | 2024-05-14 15:58 | W.PM.PODPROC ---
Date of Procedure: 05/14/24 Surgeon: Yury Villa DPM Pre-op Diagnosis: 1. Decubitus ulcer right heel 2. osteomyelitis right calcaneus Post-op Diagnosis: 1. Decubitus ulcer right heel 2. osteomyelitis right calcaneus Type of Procedure: 1. wide debridement right decubitus ulcer including bone 2. application of wound VAC right foot Indications: patient has been hospitalized for severe osteomyelitis right calcaneus large decubitus ulceration. She had initial debridement to control bleeding is now in need of a repeat debridement and application of wound VAC. reviewed the procedure with her guardian and verbal consent was obtained for this procedure. Procedure Description: Patient brought the operating room and placed under general anesthesia on the operating room cart. She was the rolled into a prone position on the operating room table and padded appropriately. She was prepped and draped in sterile fashion. Standard time-out protocol followed. The right limb was exsanguinated and the tourniquet inflated. Careful dissection with cautery was made along the edges of the remaining calcaneus and the superior aspect near the Achilles tendon. necrotic tissue excised. the prominent posterior projecting potion of the calcaneus was then removed with a rongeur. Remainder of the calcaneus was also freshened back to healthy bleeding margins. Central portion of the calcaneus had some purulent material which was evacuated. Remaining bone appeared viable and healthy. Next the peripheral wound was debrided with a Versajet want sharply excising necrotic tissue establishing a healthy bleeding margin. Wound measurements were 10 cm x 6 cm and 4 cm deep. Wound was irrigated normal sterile saline. The tourniquet was then released and all bleeding vessels cauterized. With difficulty stopping the bone from bleeding and did apply Gelfoam for. Tight. Once the blood flow was quite minimal from the bone we applied Adaptic and a VAC dressing. Vac was set up for intermittent suction to help the area to clot. Remaining wounds were redressed in A sterile fashion. Anesthesia: GETA and local Hemostasis: ankle Estimated blood loss (mL): 15 Specimens: none sent Disposition: PACU
--- NOTE | 2024-05-14 16:05 | P.ANES_ITS ---
Anesthesia Charges Start Date/Time Anesthesia Start Date: 05/14/24 Anesthesia Start Time: 14:22 Stop Date/Time Anesthesia Stop Date: 05/14/24 Anesthesia Stop Time: 16:00 Summary Extremes of Age - Over 70 or under 1: MDA Coding CPT Codes CPT Codes: ANESTH LOWER LEG BONE SURG - 46589 ([id number]) P3 - PATIENT W/SEVERE SYS DISEASE, QK - PEER TUTOR 2-4 CNCRNT ANES PROC, QX - HIGHWAY DESIGN ENGINEER SVC W/ MD MED DIRECTION Additional Codes: Summary - Extremes of Age - Over 70 or under 1: MDA ([id number])
--- NOTE | 2024-05-14 16:05 | W.ANESCHARGE ---
Anesthesia Charges Start Date/Time Anesthesia Start Date: 05/14/24 Anesthesia Start Time: 14:22 Stop Date/Time Anesthesia Stop Date: 05/14/24 Anesthesia Stop Time: 16:00 Summary Extremes of Age - Over 70 or under 1: MDA Coding CPT Codes CPT Codes: ANESTH LOWER LEG BONE SURG - 08863 ([id number]) P3 - PATIENT W/SEVERE SYS DISEASE, QK - WILDLIFE REFUGE MANAGER 2-4 CNCRNT ANES PROC, QX - ASBESTOS REMOVAL WORKER SVC W/ MD MED DIRECTION Additional Codes: Summary - Extremes of Age - Over 70 or under 1: MDA ([id number])
--- NOTE | 2024-05-14 16:06 | P.ANES_ITS ---
Anesthesia Charges Start Date/Time Anesthesia Start Date: 05/14/24 Anesthesia Start Time: 14:22 Stop Date/Time Anesthesia Stop Date: 05/14/24 Anesthesia Stop Time: 16:00 Coding CPT Codes CPT Codes: ANESTH LOWER LEG BONE SURG - 14759 ([id number]) P3 - PATIENT W/SEVERE SYS DISEASE, QK - EVENT SPECIALIST PRODUCT DEMONSTRATOR 2-4 CNCRNT ANES PROC, QX - COMPANY SECRETARY SVC W/ MD MED DIRECTION
--- NOTE | 2024-05-14 16:06 | W.ANESCHARGE ---
Anesthesia Charges Start Date/Time Anesthesia Start Date: 05/14/24 Anesthesia Start Time: 14:22 Stop Date/Time Anesthesia Stop Date: 05/14/24 Anesthesia Stop Time: 16:00 Coding CPT Codes CPT Codes: ANESTH LOWER LEG BONE SURG - 96150 ([id number]) P3 - PATIENT W/SEVERE SYS DISEASE, QK - TORPEDO WORKER 2-4 CNCRNT ANES PROC, QX - DRILL PRESS OPERATOR NUMERICAL CONTROL SVC W/ MD MED DIRECTION
[2024-05-14] MEDS: FUROSEMIDE 10 MG/ML inj 20 MG IVP (18:53)
[2024-05-14] MEDS: POTASSIUM BICARB 25 MEQ EFFERVESCENT TAB G-TUBE (18:54)
[2024-05-14] MEDS: QUETIAPINE 100 MG TABLET 200 MG G-TUBE (20:30)
[2024-05-15] MEDS: VANCOMYCIN 1.25 GM/250 ML 1.25 GM/250 ML PIGGYBACK IVPB ×3 (00:20→23:48)
[2024-05-15] MEDS: PIPERACILLIN/TAZOBACTAM 3.375 GM in 0.9 % SODIUM CHLORIDE Mini-bag 100 ML IVPB ×4 (02:40→20:37)
[2024-05-15 03:00] VITALS: BP 121/63; PULSE 83; RESP 16; TEMP 36.8; O2SAT 96
[2024-05-15 03:51] LABS: Fecal Occult Blood* Negative (Negative)
[2024-05-15 06:49] LABS: Basophils Absolute Auto 0.03 K/uL (0.00-0.30); Basophils Percent Auto 0.3 % (0.0-3.0); Eosinophils Absolute Auto 0.02 K/uL (0.00-0.50); Eosinophils Percent Auto 0.2 % (0.0-7.0); Hemoglobin* 8.6 gm/dL (12.0-16.0); Immature Granulocytes Abs Auto 0.02 K/uL (0.00-0.30); Immature Granulocytes Pct Auto 0.2 %; Lymphocytes Percent Auto 14.7 % (20-44); Mean Corpuscular HGB Conc 32 gm/dL (32-36); Mean Corpuscular Hemoglobin 28 pg (26-34); Mean Corpuscular Volume 86 fL (80-100); Monocytes Percent Auto 10.4 % (0.0-11.0); Neutrophils Percent Auto 74.2 % (42.0-72.0); Platelet Count* 453 K/uL (140-440); RDW Coefficient of Variation % 15.3 % (11.5-15.5); Red Blood Count 3.13 m/uL (4.00-5.20); White Blood Count* 8.68 K/uL (4.50-11.00)
[2024-05-15 06:55] LABS: Slide Review Reflex No
[2024-05-15 07:05] LABS: Chloride* 102 mmol/L (96-114); Potassium* 3.9 mmol/L (3.6-5.1); Sodium* 137 mmol/L (135-149)
[2024-05-15 07:08] LABS: Anion Gap 3 mEq/L (7-15); Blood Urea Nitrogen* 23 mg/dL (7-30); Calcium* 8.1 mg/dL (8.4-10.6); Carbon Dioxide* 32 mmol/L (20-32); Creatinine* 0.4 mg/dL (0.5-1.5); Estimated Glomerular Filt Rate 106 ml/min; Glucose* 107 mg/dL (60-115)
--- NOTE | 2024-05-15 07:46 | PC.NURSE ---
[id number]: Pt developmentally delayed and nonverbal at baseline, though able to answer basic yes or no questions. VSS. Pt turned and repositioned q2-3h. Incontinent, changed throughout shift, purewick in place. Right foot has wound vac in place, left has dressing, both C/D/I. Bilateral feet +3 - +4 pitting edema, heels floated throughout shift. Pt 2 assist. Pt appears to be resting and comfortable.
[2024-05-15 09:29] VITALS: BP 145/79; PULSE 83; PULSE 98; RESP 26; TEMP 36.9; O2SAT 93
[2024-05-15] MEDS: TORSEMIDE 20 MG TABLET G-TUBE (09:44)
[2024-05-15] MEDS: ACETAMINOPHEN 500 MG TABLET 1000 MG G-TUBE ×3 (09:44→20:40)
[2024-05-15] MEDS: CETIRIZINE HCL 10 MG TABLET G-TUBE (09:44)
[2024-05-15] MEDS: ESCITALOPRAM 10 MG TABLET 30 MG G-TUBE (09:44)
[2024-05-15] MEDS: TRAMADOL HCL 50 MG TABLET G-TUBE (09:45)
[2024-05-15] MEDS: SODIUM CHLORIDE 0.9 % (FLUSH) 10 ML SYRINGE 5 ML IVF ×2 (09:45→20:46)
[2024-05-15] MEDS: VALPROIC ACID 500 MG G-TUBE ×3 (09:45→20:54)
[2024-05-15] MEDS: PANTOPRAZOLE SODIUM 40 MG INJ IVP (09:46)
[2024-05-15] MEDS: METOPROLOL TARTRATE 25 MG TABLET G-TUBE ×2 (09:46→20:45)
[2024-05-15 11:00] VITALS: BP 155/75; PULSE 77; RESP 22; TEMP 37; O2SAT 95
--- NOTE | 2024-05-15 12:38 | P.IMPN_ITS ---
Assessment and Plan Assessment and plan (1) Osteomyelitis: Problem comment: - Right calcaneus, has wound that was first noted 01/30 per Epic chart, first visit to our wound center for this 02/2024 - Vancomycin and Zosyn (05/09/24), wound culture 04/24/24 + for Pseudomonas, Staph, GBS, Enterococcus - superficial wound cultures from May 10 admission show Enterococcus faecalis, MRSA, Klebsiella pneumonia, Pseudomonas aeruginosa resistant to quinolones - Blood culture + Staph epidermidis. Probable contaminate Will need long-term plan for wound healing and antibiotics. At this time she needs 6 weeks of anti MRSA treatment which can be 6 weeks of IV vancomycin or 2 weeks of IV mid vancomycin followed by 4 weeks of doxycycline or Bactrim. She should also have 6 weeks of Augmentin for anaerobic coverage. Ongoing wound VAC treatment as well. For successful treatment of the osteomyelitis of the heel she will need soft tissue to heal over the exposed bone. Status: Acute (2) Pressure ulcer: Problem comment: - Multiple sites x 4- right lower leg, right calcaneus stage 4, left calcaneal stage 3, right elbow stage 2 - Followed by [facility], most recent visit with Dr. Caldwell 05/08/2024 - Continue wound cares per current orders (T/TH/Sat) Status: Acute (3) Nonverbal: Problem comment: Does respond nonverbally to simple communications Status: Acute (4) Atrial fibrillation with RVR: Problem comment: - rate controlled Restart apixaban 05/16/2024 evening Status: Acute (5) Mixed anxiety depressive disorder: Problem comment: - continue Valproic acid, Lexapro, Clonazepam Status: Acute (6) GERD (gastroesophageal reflux disease): Problem comment: Continue PPI Status: Acute (7) G tube feedings: Problem comment: - initiated fall 2023 during lengthy hospitalization at [facility] for sepsis in the setting of aspiration pneumonia - admitted on Jevity 1.5, Nutrition following and plans to increase protein intake (will likely change tube feedings) given acute on chronic wounds Status: Acute (8) Neurogenic bladder: Problem comment: - Incontinent, keep skin clean and dry Status: Acute (9) Discharge planning issues: Problem comment: Will likely need senior living placement for several weeks of IV antibiotics and wound care including wound VAC, for at least 6 weeks. probable senior living placement around [address]. Status: Acute (10) Heart failure: Problem comment: Patient has developed pulmonary edema during this hospital stay. Initiate diuretic therapy. Obtain echo. Status: Acute Plan Continue in hospital for IV antibiotics and wound care and developing outpatient plan of care. Total Time Spent Total Time Spent: Total time spent today is 40 minutes in coordination of care and discussing with other providers, Infectious Disease, ongoing plan of care Subjective Date Seen: 05/15/24 Interval history: Admission HPI: Vida Gunn is a 73 year old female past medical history significant for atrial fibrillation on chronic anticoagulation, hypertension, hypertensive kidney disease stage 2, GERD, osteoarthritis, multiple pressure wounds, mixed anxiety depressive disorder, chronic cough, neurogenic bladder, Paget's disease, moderate intellectual disability is admitted to the medical floor from the ED for further management suspected worsening osteomyelitis. Patient is nonverbal and nonambulatory. Does yell out with pain or randomly at times. I spoke with her caregiver, Toya, briefly. Patient was seen in the W[facility] Care Clinic yesterday by Dr. Caldwell. At that time Dr. Caldwell notes significant changes in her right calcaneal wound. She attempted debridement at that time but is recommending surgical consultation for further debridement. Toya, her caregiver, denies known recent fevers. There have been no reports of vomiting. Patient is incontinent of stool and urine chronically. Sister is guardian. PCP is Dr. Diaz at [facility]. Patient is a full code. She was taken to the OR yesterday for debridement by Dr. Villa. See his notes for details. Surgical culture from May 11, bone culture, growing MRSA Surface cultures from admission on May 10 show moderate MRSA, moderate Enterococcus faecalis, two Gram-negative rods with sensitivities pending. Blood culture from May 09 growing Staph epidermidis in 1 bottle. Suspected contaminant. Wound cultures from April 24, 2 weeks ago showed group B strep, Enterococcus faecalis, Pseudomonas aeruginosa resistant to quinolones and MSSA. Patient received 1 unit blood transfusion today for gradually progressive anemia. She is observed to be, little tachycardic and diaphoretic during this. Further evaluation suggested that she had some crackles in her lung bases. Based on this chest x-ray is obtained confirming suspected pulmonary edema. G iven IV furosemide with marked improvement in her respiratory status. 05/15/2024: Patient's respiratory status is much improved with diuresis. Nursing staff thought she is a little less agitated with cares today. Had repeat debridement of her right decubitus ulcer yesterday with placement with a wound VAC. I discussed with infectious disease solutions sales consultant plan for antibiotics: She will need 6 week treatment with antibiotic for MRSA. This can be 2 weeks of IV vancomycin followed by 4 weeks of Bactrim or doxycycline or 6 weeks of IV vancomycin. In addition she should have anaerobic coverage which could be done with Augmentin. The decision about how long to do IV vancomycin will depend on the plan for wound care and wound VAC. Osteomyelitis of the heel is difficult to treat with ongoing exposed bone. The wound VAC may help obtain soft tissue coverage over the bone improving the odds of healing of the wound. Exam Narrative: Exam Narrative: She is alert and appears in no distress. She responds appropriately to comments in questions with nonverbal cues. Respirations with a few basilar crackles. Breathing is unlabored. Cardiovascular: S1, S2, regular rate and rhythm. Abdomen: Bowel sounds active. Abdomen is soft without tenderness or mass. Feet are warm to touch with 3+ edema bilaterally. Const: Vital Signs, click to edit/add: Vital Signs - 24 hr 05/14/24 12:48 05/14/24 13:45 05/14/24 15:55 Temperature 98.4 F 97.8 F 97.9 F Pulse Rate 107 H 104 H Pulse Rate [Left P ulse Oximeter] Respiratory Rate 34 H 20 16 Blood Pressure 162/110 H 99/77 Blood Pressure [Ri ght Arm] Pulse Oximetry 94 100 Oxygen Delivery Me thod Room Air Room Air OxyMask Oxygen Flow Rate 6 05/14/24 16:00 05/14/24 16:05 05/14/24 16:10 Temperature Pulse Rate 105 H 106 H 106 H Pulse Rate [Left P ulse Oximeter] Respiratory Rate 16 16 16 Blood Pressure 130/71 135/80 132/70 Blood Pressure [Ri ght Arm] Pulse Oximetry 100 100 93 Oxygen Delivery Me thod OxyMask Room Air Room Air Oxygen Flow Rate 4 05/14/24 16:15 05/14/24 16:20 05/14/24 16:30 Temperature 99.0 F Pulse Rate 107 H 104 H 109 H Pulse Rate [Left P ulse Oximeter] Respiratory Rate 16 16 18 Blood Pressure 143/75 H 140/68 H 140/91 H Blood Pressure [Ri ght Arm] Pulse Oximetry 91 100 93 Oxygen Delivery Me thod OxyMask OxyMask Room Air Oxygen Flow Rate 4 4 05/14/24 16:45 05/14/24 17:00 05/14/24 17:15 Temperature 99.2 F Pulse Rate 105 H 108 H 111 H Pulse Rate [Left P ulse Oximeter] Respiratory Rate 20 20 20 Blood Pressure 141/90 H 133/97 H 141/91 H Blood Pressure [Ri ght Arm] Pulse Oximetry 94 95 94 Oxygen Delivery Me thod Room Air Room Air Room Air Oxygen Flow Rate 05/14/24 17:30 05/14/24 18:00 05/14/24 18:30 Temperature Pulse Rate 114 H 109 H 112 H Pulse Rate [Left P ulse Oximeter] Respiratory Rate 20 20 20 Blood Pressure 146/92 H 161/88 H 164/92 H Blood Pressure [Ri ght Arm] Pulse Oximetry 94 93 94 Oxygen Delivery Me thod Room Air Room Air Room Air Oxygen Flow Rate 05/14/24 19:00 05/14/24 20:00 05/14/24 21:00 Temperature 98.2 F Pulse Rate 112 H 111 H 103 H Pulse Rate [Left P ulse Oximeter] Respiratory Rate 20 18 20 Blood Pressure 167/94 H 158/92 H 123/78 Blood Pressure [Ri ght Arm] Pulse Oximetry 90 92 94 Oxygen Delivery Me thod Room Air Oxygen Flow Rate 05/14/24 22:00 05/14/24 23:00 05/14/24 23:00 Temperature 98.2 F Pulse Rate 77 Pulse Rate [Left P ulse Oximeter] 107 H 107 H Respiratory Rate 18 16 16 Blood Pressure 96/49 L Blood Pressure [Ri ght Arm] 102/61 Pulse Oximetry 95 95 Oxygen Delivery Me thod Room Air Oxygen Flow Rate 05/15/24 03:00 05/15/24 09:29 05/15/24 09:29 Temperature 98.2 F 98.4 F Pulse Rate Pulse Rate [Left P ulse Oximeter] 83 83 98 Respiratory Rate 16 26 H 26 H Blood Pressure Blood Pressure [Ri ght Arm] 121/63 145/79 H Pulse Oximetry 96 93 Oxygen Delivery Me thod Room Air Room Air Oxygen Flow Rate 05/15/24 11:00 Temperature 98.6 F Pulse Rate Pulse Rate [Left P ulse Oximeter] 77 Respiratory Rate 22 Blood Pressure Blood Pressure [Ri ght Arm] 155/75 H Pulse Oximetry 95 Oxygen Delivery Me thod Room Air Oxygen Flow Rate Documenting provider has reviewed patient's vital signs: yes Labs Labs: Laboratory Results - last 24 hr 05/14/24 05/15/24 05/15/24 06:09 03:36 06:40 WBC 8.68 RBC 3.13 L Hgb 8.6 L Hct 27.0 L MCV 86 MCH 28 MCHC 32 RDW Coeff of Cheryl 15.3 Plt Count 453 H Neut % (Auto) 74.2 H Lymph % (Auto) 14.7 L Drew % (Auto) 10.4 Eos % (Auto) 0.2 Baso % (Auto) 0.3 Neut # (Auto) 6.40 Lymph # (Auto) 1.30 Drew # (Auto) 0.90 Eos # (Auto) 0.02 Baso # (Auto) 0.03 Abs Immat Gran (auto) 0.02 Imm/Tot Granulo (auto) 0.2 Sodium 137 Potassium 3.9 Chloride 102 Carbon Dioxide 32 Anion Gap 3 L BUN 23 Creatinine 0.4 L Estimated Creat Clear 55.80 Estimated GFR 106 Glucose 107 Calcium 8.1 L Stool Occult Blood Negative Crossmatch (AHG) See Detail
--- NOTE | 2024-05-15 12:54 | PC.SOCIAL ---
Addendum entered and electronically signed by Vida Aragon LCSW 05/15/24 14:59: CASIMIRO heard from [facility] that they can't meet patient's needs. CASIMIRO received call from Bethany, rn case manager, who states that patient is on a DD waiver. CASIMIRO updated rn case manager with patient needing to go to a SNF and the issue if the [facility] can't take the patient back with a wound vac if she still needs that after her SNF stay. SW to update Bethany in the morning. CASIMIRO heard from Ion with [facility] that [facility] has no openings at this time and CASIMIRO confirmed that the referral should be sent to [facility]. CASIMIRO spoke with Reena at patient's skilled nursing to determine if patient could return with a wound vac. Reena states that they would not be able to accommodate that as they don't have staff that are trained. Original Note: Discharge planning: CASIMIRO spoke with patient's guardian Hillary to discuss placement as well as insurance/waiver. Hillary states she is unsure of what insurance patient has as the skilled nursing has this information or the [facility] worker would. Hillary suggested SW call Reena or Bethany Hernandez, the person [facility] catalytic case operator, to obtain this information ([phone]). CASIMIRO asked if Hillary was okay with CASIMIRO sending referrals to [facility] and [facility] facilities as well as [facility] in [place]. Hillary confirmed SW could send referrals to these facilities. CASIMIRO called Reena to obtain insurance information. Reena reports that she will fax these to CASIMIRO. CASIMIRO called Bethany, the person [facility] waiver worker, and left a voicemail. CASIMIRO secure emailed referrals to Ion with [facility], Carlton with [facility], and Toya at [facility]. CASIMIRO waiting for responses.
[2024-05-15 15:00] VITALS: BP 158/90; PULSE 82; RESP 24; TEMP 37.1; O2SAT 97
--- NOTE | 2024-05-15 19:06 | PC.NURSE ---
Nursing Care Hours: 8419-0247 Pt this shift calm and cooperative. Alert and oriented to self. Denies pain unless service writer advisor palpates wound areas such as bilat feet or R elbow. Redness around scab of R elbow outlined and mepilex applied. L foot cleaned with Vaush, dried and Mepilex foam heel cover applied and tubi order packer or packager over the foot and leg. Skin intact under L calf. Did not change R foot or calf dressing d/t wound vac. Reported by hospitalist that [facility] will change tomorrow. Pt able to wiggle and move L foot, no movement to R foot. Bilat feet warm and cap refill 3 seconds. Bilat feet 4+ pitting edema, skin taut and shiny, pedal pulse can not be felt. Hospitalist made aware. Bilat feet elevated on pillows up to level of heart. PICC patent, CDI. Pt concerned about seeing PICC aeb pt trying to cover it up with gown and vocalizing and pointing to IV during infusion. Tubi order packer or packager applied and when asked is this better? pt nodded. Minimal yelling out during turn and repo and brief changes. Purewick was not suctioning during day so pt incontinent in brief. Purewick suction started up at 1500 and little output in canister at end of shift. Pt refused oral cares. Content holding coloring pictures and watching cartoons. One BM this shift. Core Man updated Pretty from [facility] on pt cares and behavior. Pretty would like pictures for wound clinic and from M/S on wound progress and condition sent to Carlton Diane the pt liaison. Also requesting staging and wound care orders. Pretty would also like to be notified of discharge planning after wound vac is completed.
[2024-05-15 20:10] VITALS: BP 138/83; PULSE 87; RESP 18; TEMP 36.7; O2SAT 94
[2024-05-15] MEDS: QUETIAPINE 100 MG TABLET 200 MG G-TUBE (20:41)
[2024-05-15] MEDS: APIXABAN 5 MG TABLET G-TUBE (20:45)
[2024-05-15 23:52] VITALS: BP 126/62; PULSE 77; RESP 18; TEMP 37.1; O2SAT 97
[2024-05-16] MEDS: PIPERACILLIN/TAZOBACTAM 3.375 GM in 0.9 % SODIUM CHLORIDE Mini-bag 100 ML IVPB ×4 (01:34→21:38)
[2024-05-16 03:05] VITALS: BP 129/57; PULSE 81; RESP 18; TEMP 36.8; O2SAT 94
--- NOTE | 2024-05-16 06:32 | PC.NURSE ---
End of shift [id number]: Pt nonverbal although at times able to respond to yes or no questions. VSS. Turn and repo q2h. Wound vac in place. Dressings to heels c/d/i. Heels floated overnight. Bed alarm in place.
[2024-05-16 07:05] LABS: Chloride* 103 mmol/L (96-114); Potassium* 4.2 mmol/L (3.6-5.1); Sodium* 137 mmol/L (135-149)
[2024-05-16 07:08] LABS: Anion Gap 3 mEq/L (7-15); Blood Urea Nitrogen* 24 mg/dL (7-30); Carbon Dioxide* 31 mmol/L (20-32); Creatinine* 0.4 mg/dL (0.5-1.5); Estimated Glomerular Filt Rate 106 ml/min
[2024-05-16 07:09] LABS: Calcium* 8.3 mg/dL (8.4-10.6); Glucose* 134 mg/dL (60-115)
[2024-05-16 08:17] VITALS: BP 159/99; PULSE 111; RESP 20; TEMP 36.9; O2SAT 96
[2024-05-16] MEDS: SODIUM CHLORIDE 0.9 % (FLUSH) 10 ML SYRINGE 5 ML IVF ×4 (08:19→21:40)
[2024-05-16] MEDS: PANTOPRAZOLE SODIUM 40 MG INJ IVP (08:22)
[2024-05-16] MEDS: ACETAMINOPHEN 500 MG TABLET 1000 MG G-TUBE ×3 (08:25→21:39)
[2024-05-16] MEDS: CETIRIZINE HCL 10 MG TABLET G-TUBE (08:26)
[2024-05-16] MEDS: ESCITALOPRAM 10 MG TABLET 30 MG G-TUBE (08:26)
[2024-05-16] MEDS: APIXABAN 5 MG TABLET G-TUBE ×2 (08:27→21:39)
[2024-05-16] MEDS: VALPROIC ACID 500 MG G-TUBE ×3 (08:27→22:00)
[2024-05-16] MEDS: TORSEMIDE 20 MG TABLET G-TUBE (08:27)
[2024-05-16] MEDS: METOPROLOL TARTRATE 25 MG TABLET G-TUBE ×2 (08:27→21:40)
[2024-05-16 09:42] VITALS: BMI 27.2
[2024-05-16] MEDS: VANCOMYCIN 1.25 GM/250 ML 1.25 GM/250 ML PIGGYBACK IVPB (11:34)
[2024-05-16 11:38] VITALS: BP 174/91; PULSE 83; RESP 18; TEMP 36.7; O2SAT 95
[2024-05-16] MEDS: HYDROmorphone 0.5 mg/0.5 ml inj IVP (12:35)
--- NOTE | 2024-05-16 12:57 | W.PM.PODPN ---
Podiatry-PN: Subj Subjective Date Seen: 05/16/24 Interval history: Patient seen bedside postop day 2. She is resting comfortably and appears in good spirits. Exam Narrative: Exam Narrative: General: No distress Vascular: Nonpalpable pedal pulses due to edema. Capillary fill time less than 3 seconds all digits. Neuro: Unable to test. Derm: Right heel wound with VAC in place and removed. No active bleeding. There is early granulation tissue were over most of bone. Some blood clot. No new areas of necrosis. Left posterior heel with mixed granular fibers wound bed. No signs of infection. No purulence. Right lower leg with open wounds bilaterally that appear to be improving. A culture Bone: growth of Enterococcus and MRSA. Assessment: Sub post repeat debridement with wound VAC application right heel postop day 2, decubitus ulcer left heel, lower leg ulcerations right The plan: Wound VAC and Adaptic removed. Wound VAC reapplied with small wound VAC dressing and no Adaptic as the bone appears improved and unlikely to be catching on the sponge. Mepilex heel dressing to the left applied. VASHE wet-to-dry to the right lower leg. Plan for discharge to senior living with IV antibiotics. To need wound VAC changes Fridays. She will need follow-up in the W[facility] Care Center next week. She will not need follow-up with Dr. Villa but will follow with the Wound Care Center. Offloading multi Podus boots placed. Time spent with patient today: 60 minutes. Const: Vital Signs, click to edit/add: Vital Signs - 24 hr 05/15/24 15:00 05/15/24 15:00 05/15/24 20:10 Temperature 98.7 F 98.1 F Pulse Rate [Left P ulse Oximeter] 82 82 87 Respiratory Rate 24 24 18 Blood Pressure [Ri ght Arm] 158/90 H 138/83 Pulse Oximetry 97 94 Oxygen Delivery Me thod Room Air Room Air 05/15/24 23:52 05/16/24 03:05 05/16/24 08:17 Temperature 98.7 F 98.3 F 98.5 F Pulse Rate [Left P ulse Oximeter] 77 81 111 H Respiratory Rate 18 18 20 Blood Pressure [Ri ght Arm] 126/62 129/57 L 159/99 H Pulse Oximetry 97 94 96 Oxygen Delivery Me thod Room Air Room Air Room Air 05/16/24 11:38 Temperature 98.0 F Pulse Rate [Left P ulse Oximeter] 83 Respiratory Rate 18 Blood Pressure [Ri ght Arm] 174/91 H Pulse Oximetry 95 Oxygen Delivery Me thod Room Air Documenting provider has reviewed patient's vital signs: yes Podiatry-PN: Obj Labs Labs: Laboratory Results - last 24 hr 05/16/24 Unknown Sodium 137 Potassium 4.2 Chloride 103 Carbon Dioxide 31 Anion Gap 3 L BUN 24 Creatinine 0.4 L Estimated Creat Clear 55.80 Estimated GFR 106 Glucose 134 H Calcium 8.3 L
--- NOTE | 2024-05-16 13:13 | PC.NURSE ---
left heel right heel
--- NOTE | 2024-05-16 13:48 | PC.SOCIAL ---
Addendum entered and electronically signed by Vida Aragon LCSW 05/16/24 16:04: SW called Bethany, case management social worker, to determine the level of DD to complete PAS. SW had to leave . SW called patient's sister to see if she is aware of level of DD. Sister states she is unsure. SW updated that she would send a referral to [facility] in [place]. Upon further review of chart, SW supervisor ditching found level of DD. SW completed PAS which triggered the need for an OBRA level 2 assessment. PAS number is [id number]. Original Note: Discharge Planning: CASIMIRO informed by Ion at [facility] that [facility] has declined due to acuity and asked if SW would like referrals sent to their [facility] locations. SW declined at this time as she is waiting to hear back from the guardian if they would like to extend to those facilities. CASIMIRO spoke with Hillary, patient's sister and guardian, about sending out more referrals to more facilities. CASIMIRO emailed Hillary a list of facilities both more local and further out for her to review and update SW with where else referrals should be sent. Hillary's email is [email or web address] . Hillary asked that CASIMIRO also send the list to Reena from the patient's assisted so that she can review too. CASIMIRO called Reena and obtained email address: [email or web address] CASIMIRO emailed list to Hillary and Reena. Hillary was okay with a referral to [facility] at this time. SW sent referral to [facility], however, they state if they could take patient it likely wouldn't be until next week and they would need the antibiotics script at least one day in advance to ensure they have it when patient would arrive. CASIMIRO called Bethany, patient's case management social worker, and left voicemail with updates on the search and potential length of wound vac. Referrals: [facility] Bowman: currently reviewing [facility]: currently reviewing [facility]: declined [facility]: declined due to acuity of other patients [facility] and [facility]: declined due to acuity of other patients
--- NOTE | 2024-05-16 13:51 | P.IMPN_ITS ---
Assessment and Plan Assessment and plan (1) Osteomyelitis: Problem comment: - Right calcaneus, has wound that was first noted 01/30 per Epic chart, first visit to our wound center for this 02/2024 - Vancomycin and Zosyn (05/09/24), wound culture 04/24/24 + for Pseudomonas, Staph, GBS, Enterococcus - superficial wound cultures from May 10 admission show Enterococcus faecalis, MRSA, Klebsiella pneumonia, Pseudomonas aeruginosa resistant to quinolones - Blood culture + Staph epidermidis. Probable contaminate Will need long-term plan for wound healing and antibiotics. At this time she needs 6 weeks of anti MRSA treatment which can be 6 weeks of IV vancomycin or 2 weeks of IV mid vancomycin followed by 4 weeks of doxycycline or Bactrim. She should also have 6 weeks of Augmentin for anaerobic coverage. Ongoing wound VAC treatment as well. For successful treatment of the osteomyelitis of the heel she will need soft tissue to heal over the exposed bone. If this calcaneal osteomyelitis does not heal well or has recurrent infections I would recommend consideration of a below the knee amputation. Status: Acute (2) Pressure ulcer: Problem comment: - Multiple sites x 4- right lower leg, right calcaneus stage 4, left calcaneal stage 3, right elbow stage 2 Status: Acute (3) Nonverbal: Problem comment: Does respond nonverbally to simple communications Status: Acute (4) Atrial fibrillation with RVR: Problem comment: - rate controlled Restart apixaban 05/16/2024 evening Status: Acute (5) Mixed anxiety depressive disorder: Problem comment: - continue Valproic acid, Lexapro, Clonazepam Status: Acute (6) GERD (gastroesophageal reflux disease): Problem comment: Continue PPI Status: Acute (7) G tube feedings: Problem comment: - initiated fall 2023 during lengthy hospitalization at [facility] for sepsis in the setting of aspiration pneumonia - admitted on Jevity 1.5, Nutrition following and plans to increase protein intake (will likely change tube feedings) given acute on chronic wounds Status: Acute (8) Neurogenic bladder: Problem comment: - Incontinent, keep skin clean and dry Status: Acute (9) Heart failure: Problem comment: Patient has developed pulmonary edema during this hospital stay. Initiate diuretic therapy. Need to follow volume status and electrolytes. Echo is relatively normal. Status: Acute (10) Discharge planning issues: Problem comment: Will likely need prison placement for several weeks of IV antibiotics and wound care including wound VAC, for at least 6 weeks, about 5 weeks after discharge from the hospital. Status: Acute Plan Continue in hospital pending safe discharge plan. Continue IV antibiotics and wound VAC changes Wednesdays. Total Time Spent Total Time Spent: Total time spent today is 55 minutes in coordination of care and discussing with patient, sister and other providers ongoing management osteomyelitis, wound infection, other disabilities and disposition Subjective Date Seen: 05/16/24 Interval history: Admission HPI: Vida Gunn is a 73 year old female past medical history significant for atrial fibrillation on chronic anticoagulation, hypertension, hypertensive kidney disease stage 2, GERD, osteoarthritis, multiple pressure wounds, mixed anxiety depressive disorder, chronic cough, neurogenic bladder, Paget's disease, moderate intellectual disability is admitted to the medical floor from the ED for further management suspected worsening osteomyelitis. Patient is nonverbal and nonambulatory. Does yell out with pain or randomly at times. I spoke with her caregiver, Toya, briefly. Patient was seen in the [facility] yesterday by Dr. Caldwell. At that time Dr. Caldwell notes significant changes in her right calcaneal wound. She attempted debridement at that time but is recommending surgical consultation for further debridement. Toya, her caregiver, denies known recent fevers. There have been no reports of vomiting. Patient is incontinent of stool and urine chronically. Sister is guardian. PCP is Dr. Diaz at [facility]. Patient is a full code. She was taken to the OR yesterday for debridement by Dr. Villa. See his notes for details. Surgical culture from May 11, bone culture, growing MRSA Surface cultures from admission on May 10 show moderate MRSA, moderate Enterococcus faecalis, two Gram-negative rods with sensitivities pending. Blood culture from May 09 growing Staph epidermidis in 1 bottle. Suspected contaminant. Wound cultures from April 24, 2 weeks ago showed group B strep, Enterococcus faecalis, Pseudomonas aeruginosa resistant to quinolones and MSSA. Patient received 1 unit blood transfusion today for gradually progressive anemia. She is observed to be, little tachycardic and diaphoretic during this. Further evaluation suggested that she had some crackles in her lung bases. Based on this chest x-ray is obtained confirming suspected pulmonary edema. Given IV furosemide with marked improvement in her respiratory status. 05/15/2024: Patient's respiratory status is much improved with diuresis. Nursing staff thought she is a little less agitated with cares today. Had repeat debridement of her right decubitus ulcer yesterday with placement with a wound VAC. I discussed with infectious disease independent consultant plan for antibiotics: She will need 6 week treatment with antibiotic for MRSA. This can be 2 weeks of IV vancomycin followed by 4 weeks of Bactrim or doxycycline or 6 weeks of IV vancomycin. In addition she should have anaerobic coverage which could be done with Augmentin. The decision about how long to do IV vancomycin will depend on the plan for wound care and wound VAC. Osteomyelitis of the heel is difficult to treat with ongoing exposed bone. The wound VAC may help obtain soft tissue coverage over the bone improving the odds of healing of the wound. 05/16/2024: Patient continues to do well today. Wound VAC is changed by Dr. Villa. Nurses have not noted significant concerns. I spoke with her sister and Hillary YODER, . Discussed the current status, plan of care, disposition issues. At this time the plan is for 6 weeks of intravenous vancomycin. She has already had 5 days. Along with this she will need 6 weeks of Augmentin to treat Enterococcus. She will also have a wound VAC in place during this time. If her wound is poorly healing or in the future if she gets recurrent infection I would recommend a below the knee amputation. Since she is nonambulatory and due to the difficulty of healing a wound with exposed bone this may be the next course of action. Exam Narrative: Exam Narrative: She is alert and appears in no distress. She seems to respond with facial expressions and simple vocalizations. Respirations are clear to auscultation. Cardiovascular: S1, S2, regular rate and rhythm. Abdomen: Bowel sounds active. Abdomen is soft without tenderness or mass. feeding tube site is clean and dry without erythema. Right heel is examined along with right leg during VAC change. Large ulcer to bone otherwise looks healthy with granulation tissue. No marked surrounding erythema. She has some exudate in the wounds on her right lateral calf otherwise healing well without significant surrounding erythema. Const: Vital Signs, click to edit/add: Vital Signs - 24 hr 05/15/24 15:00 05/15/24 15:00 05/15/24 20:10 Temperature 98.7 F 98.1 F Pulse Rate [Left P ulse Oximeter] 82 82 87 Respiratory Rate 24 24 18 Blood Pressure [Ri ght Arm] 158/90 H 138/83 Pulse Oximetry 97 94 Oxygen Delivery Me thod Room Air Room Air 05/15/24 23:52 05/16/24 03:05 05/16/24 08:17 Temperature 98.7 F 98.3 F 98.5 F Pulse Rate [Left P ulse Oximeter] 77 81 111 H Respiratory Rate 18 18 20 Blood Pressure [Ri ght Arm] 126/62 129/57 L 159/99 H Pulse Oximetry 97 94 96 Oxygen Delivery Me thod Room Air Room Air Room Air 05/16/24 11:38 Temperature 98.0 F Pulse Rate [Left P ulse Oximeter] 83 Respiratory Rate 18 Blood Pressure [Ri ght Arm] 174/91 H Pulse Oximetry 95 Oxygen Delivery Me thod Room Air Documenting provider has reviewed patient's vital signs: yes Labs Labs: Laboratory Results - last 24 hr 05/16/24 Unknown Sodium 137 Potassium 4.2 Chloride 103 Carbon Dioxide 31 Anion Gap 3 L BUN 24 Creatinine 0.4 L Estimated Creat Clear 55.80 Estimated GFR 106 Glucose 134 H Calcium 8.3 L
[2024-05-16 15:29] VITALS: BP 164/105; PULSE 107; RESP 20; TEMP 36.6; O2SAT 95
[2024-05-16 19:00] VITALS: BP 163/113; PULSE 165; RESP 18; TEMP 36.4; O2SAT 97
[2024-05-16] MEDS: dilTIAZem 5 MG/ML inj 10 MG IVP (21:33)
[2024-05-16] MEDS: QUETIAPINE 100 MG TABLET 200 MG G-TUBE (21:40)
[2024-05-16 23:00] VITALS: BP 131/84; PULSE 81; PULSE 95; RESP 18; TEMP 36.7; O2SAT 98
[2024-05-17] VITALS (7 sets, daily range): BP systolic 119–152; BP diastolic 60–108; PULSE 86–126; RESP 18–32; TEMP 36.4–37.3; O2SAT 97–100
[2024-05-17] MEDS: VANCOMYCIN 1.25 GM/250 ML 1.25 GM/250 ML PIGGYBACK IVPB ×2 (00:43→12:24)
[2024-05-17] MEDS: PIPERACILLIN/TAZOBACTAM 3.375 GM in 0.9 % SODIUM CHLORIDE Mini-bag 100 ML IVPB ×4 (03:07→20:21)
[2024-05-17] MEDS: METOPROLOL TARTRATE 25 MG TABLET G-TUBE ×4 (03:08→20:21)
[2024-05-17 07:04] LABS: Basophils Absolute Auto 0.05 K/uL (0.00-0.30); Basophils Percent Auto 0.7 % (0.0-3.0); Eosinophils Percent Auto 4.3 % (0.0-7.0); Hematocrit 28.5 % (33.0-51.0); Immature Granulocytes Abs Auto 0.01 K/uL (0.00-0.30); Immature Granulocytes Pct Auto 0.1 %; Lymphocytes Percent Auto 18.8 % (20-44); Mean Corpuscular HGB Conc 32 gm/dL (32-36); Mean Corpuscular Hemoglobin 27 pg (26-34); Mean Corpuscular Volume 87 fL (80-100); Monocytes Percent Auto 11.3 % (0.0-11.0); Neutrophils Absolute Auto 4.46 K/uL (1.7-7.0); Neutrophils Percent Auto 64.8 % (42.0-72.0); Platelet Count* 453 K/uL (140-440); RDW Coefficient of Variation % 16.5 % (11.5-15.5); Red Blood Count 3.29 m/uL (4.00-5.20)
[2024-05-17 07:06] LABS: Slide Review Reflex No
--- NOTE | 2024-05-17 07:14 | PC.NURSE ---
Pt developmentally delayed at baseline, nonverbal, though able to answer simple yes or no questions. Pt tachycardic with first set of vitals with known hx of afib with rvr. EKG done, notified (Brannon), see orders. Pt placed on tele, reading afib with rvr. Pt had 2 liquid stools during shift. Turned and repositioned q2-3hr. Pt in bed, appears to be resting, heels offloaded on pillows. ?
[2024-05-17 07:15] LABS: Chloride* 102 mmol/L (96-114)
[2024-05-17 07:16] LABS: Potassium* 4.3 mmol/L (3.6-5.1); Sodium* 135 mmol/L (135-149)
[2024-05-17 07:19] LABS: Anion Gap 5 mEq/L (7-15); Blood Urea Nitrogen* 20 mg/dL (7-30); Calcium* 8.5 mg/dL (8.4-10.6); Carbon Dioxide* 28 mmol/L (20-32); Creatinine* 0.4 mg/dL (0.5-1.5); Estimated Glomerular Filt Rate 106 ml/min; Glucose* 89 mg/dL (60-115)
--- NOTE | 2024-05-17 07:29 | CRLHL7_ITS ---
For Patients: As a result of the Century Cures Act, medical imaging exams and procedure reports are released immediately into your electronic medical record. You may view this report before your referring provider. If you have questions, please contact your health care provider. INDICATION: Congestive heart failure Comparison 05/14/2024 TECHNIQUE: Chest single-view portable. IMPRESSION: Lungs clear. Normal heart size and vascular pattern allowing for portable technique. No signs of effusion or pneumothorax. Left PICC line catheter in satisfactory position with the tip at the distal SVC. No significant change previous. Bone within bone appearance of vertebral bodies and long bones. Differential diagnosis includes metabolic diseases such as hypoparathyroidism. No change. Dictated by Celso Burton MD @ 05/17/2024 9:41:14 AM (Electronically Signed)
[2024-05-17] MEDS: ESCITALOPRAM 10 MG TABLET 30 MG G-TUBE (07:41)
[2024-05-17] MEDS: TORSEMIDE 20 MG TABLET G-TUBE (07:41)
[2024-05-17] MEDS: CETIRIZINE HCL 10 MG TABLET G-TUBE (07:42)
[2024-05-17] MEDS: APIXABAN 5 MG TABLET G-TUBE ×2 (07:42→20:21)
[2024-05-17] MEDS: ACETAMINOPHEN 500 MG TABLET 1000 MG G-TUBE ×3 (07:43→20:22)
[2024-05-17] MEDS: VALPROIC ACID 500 MG G-TUBE ×3 (07:44→20:21)
[2024-05-17] MEDS: PANTOPRAZOLE SODIUM 40 MG INJ IVP (07:44)
[2024-05-17] MEDS: SODIUM CHLORIDE 0.9 % (FLUSH) 10 ML SYRINGE 5 ML IVF ×2 (07:44→20:22)
[2024-05-17] MEDS: dilTIAZem 30 MG TABLET 60 MG PO (07:48)
[2024-05-17] MEDS: dilTIAZem 30 MG TABLET G-TUBE ×2 (13:39→14:20)
--- NOTE | 2024-05-17 14:49 | PC.SOCIAL ---
Addendum entered by JM Wick 05/17/24 15:05: Discharge planning: cattle care worker spoke to Tony Guerrero at [facility] who said pt's DD child support case officer, Bethany, completed the OBRA level 2 assessment and submitted it to the [facility]. cattle care worker will follow-up with Rasheeda Bowman. Social work to follow-up as needed. Original Note: Discharge planning: Pt has been accepted to [facility] in [place] for admission. cattle care worker spoke to pt's guardian, Hillary, who accepted the bed. cattle care worker notified Rasheeda Bowman of the bed acceptance. Due to an OBRA level 2 assessment being triggered while the pre-admission screening was completed, the pt will not be able to discharge from the hospital and admit to [facility] until the OBRA level 2 assessment has been completed by [facility]. cattle care worker left a message with Tony Guerrero at [facility] #[phone](this is the contact that the [facility] Linkage Line gave this worker to get the assessment scheduled). cattle care worker also left a message with Bethany Hernandez(pt's DD child support case officer at [facility]) about getting the assessment scheduled. cattle care worker updated Carlton Diane with [facility] about the OBRA level 2 assessment being needed and he then updated Rasheeda Bowman. [facility] will hold the bed for this pt. Pt's nurse Reena from her halfway was also notified of the pt being accepted to [facility]. Social work to follow-up as needed.
--- NOTE | 2024-05-17 15:53 | P.IMPN_ITS ---
Assessment and Plan Assessment and plan (1) Osteomyelitis: Problem comment: - Right calcaneus, has wound that was first noted 01/30 per Epic chart, first visit to our wound center for this 02/2024 - Vancomycin and Zosyn (05/09/24), wound culture 04/24/24 + for Pseudomonas, Staph, GBS, Enterococcus - superficial wound cultures from May 10 admission show Enterococcus faecalis, MRSA, Klebsiella pneumonia, Pseudomonas aeruginosa resistant to quinolones. At this time she needs 6 weeks of anti MRSA treatment which can be 6 weeks of IV vancomycin. She should also have 6 weeks of Augmentin for anaerobic coverage. Ongoing wound VAC treatment as well. For successful treatment of the osteomyelitis of the heel she will need soft tissue to heal over the exposed bone. If this calcaneal osteomyelitis does not heal well or has recurrent infections I would recommend consideration of a below the knee amputation. Status: Acute (2) Pressure ulcer: Problem comment: - Multiple sites x 4- right lower leg, right calcaneus stage 4, left calcaneal stage 3, right elbow stage 2 Status: Acute (3) Nonverbal: Problem comment: Does respond nonverbally to simple communications Status: Acute (4) Atrial fibrillation with RVR: Problem comment: Rate controlled with metoprolol down G-tube 25 mg q.6 hours and diltiazem 60 mg every 6 hours down G-tube. Restart apixaban 05/16/2024 evening Status: Acute (5) Mixed anxiety depressive disorder: Problem comment: - continue Valproic acid, Lexapro, Clonazepam Status: Acute (6) GERD (gastroesophageal reflux disease): Problem comment: Continue PPI Status: Acute (7) G tube feedings: Problem comment: - initiated fall 2023 during lengthy hospitalization at [facility] for sepsis in the setting of aspiration pneumonia - admitted on Jevity 1.5, Nutrition following and plans to increase protein intake (will likely change tube feedings) given acute on chronic wounds Status: Acute (8) Neurogenic bladder: Problem comment: - Incontinent, keep skin clean and dry Status: Acute (9) Heart failure: Problem comment: Patient has developed pulmonary edema during this hospital stay. Initiate diuretic therapy. Need to follow volume status and electrolytes. Echo is relatively normal. Status: Acute (10) Discharge planning issues: Problem comment: Will likely need jail placement for several weeks of IV antibiotics and wound care including wound VAC, for at least 6 weeks, about 5 weeks after discharge from the hospital. Status: Acute Plan Continue in hospital for IV antibiotics, wound care, managing heart failure and AFib with RVR and safe discharge plan. Total Time Spent Total Time Spent: Total time spent today is 35 minutes in coordination of care and discussing with other providers ongoing management of these issues Subjective Date Seen: 05/17/24 Interval history: Admission HPI: Vida Gunn is a 73 year old female past medical history significant for atrial fibrillation on chronic anticoagulation, hypertension, hypertensive kidney disease stage 2, GERD, osteoarthritis, multiple pressure wounds, mixed anxiety depressive disorder, chronic cough, neurogenic bladder, Paget's disease, moderate intellectual disability is admitted to the medical floor from the ED for further management suspected worsening osteomyelitis. Patient is nonverbal and nonambulatory. Does yell out with pain or randomly at times. I spoke with her caregiver, Toya, briefly. Patient was seen in the Wound Care Clinic yesterday by Dr. Caldwell. At that time Dr. Caldwell notes significant changes in her right calcaneal wound. She attempted debridement at that time but is recommending surgical consultation for further debridement. Toya, her caregiver, denies known recent fevers. There have been no reports of vomiting. Patient is incontinent of stool and urine chronically. Sister is guardian. PCP is Dr. Diaz at [facility]. Patient is a full code. She was taken to the OR yesterday for debridement by Dr. Villa. See his notes for details. Surgical culture from May 11, bone culture, growing MRSA Surface cultures from admission on May 10 show moderate MRSA, moderate Enterococcus faecalis, two Gram-negative rods with sensitivities pending. Blood culture from May 09 growing Staph epidermidis in 1 bottle. Suspected contaminant. Wound cultures from April 24, 2 weeks ago showed group B strep, Enterococcus faecalis, Pseudomonas aeruginosa resistant to quinolones and MSSA. Patient received 1 unit blood transfusion today for gradually progressive anemia. She is observed to be, little tachycardic and diaphoretic during this. Further evaluation suggested that she had some crackles in her lung bases. Based on this chest x-ray is obtained confirming suspected pulmonary edema. Given IV furosemide with marked improvement in her respiratory status. 05/15/2024: Patient's respiratory status is much improved with diuresis. Nursing staff thought she is a little less agitated with cares today. Had repeat debridement of her right decubitus ulcer yesterday with placement with a wound VAC. I discussed with infectious disease technical healthcare consultant plan for antibiotics: She will need 6 week treatment with antibiotic for MRSA. This can be 2 weeks of IV vancomycin followed by 4 weeks of Bactrim or doxycycline or 6 weeks of IV vancomycin. In addition she should have anaerobic coverage which could be done with Augmentin. The decision about how long to do IV vancomycin will depend on the plan for wound care and wound VAC. Osteomyelitis of the heel is difficult to treat with ongoing exposed bone. The wound VAC may help obtain soft tissue coverage over the bone improving the odds of healing of the wound. 05/16/2024: Patient continues to do well today. Wound VAC is changed by Dr. Villa. Nurses have not noted significant concerns. I spoke with her sister and Hillary YODER, . Discussed the current status, plan of care, disposition issues. At this time the plan is for 6 weeks of intravenous vancomycin. She has already had 5 days. Along with this she will need 6 weeks of Augmentin to treat Enterococcus. She will also have a wound VAC in place during this time. If her wound is poorly healing or in the future if she gets recurrent infection I would recommend a below the knee amputation. Since she is nonambulatory and due to the difficulty of healing a wound with exposed bone this may be the next course of action. 05/17/2024: Overnight patient went back into AFib with RVR. Had additional diltiazem administered. This give some rate control temporarily. Metoprolol increased to 25 mg NG tube every 6 hours. Diltiazem added at 30 mg every 6 hours and then increase to 60 mg for additional rate control and blood pressure control. Exam Narrative: Exam Narrative: She is alert and at baseline interactive miss. A little bit of rhonchus breathing. Lungs are clear to auscultation. Cardiovascular: S1, S2, irregular tachycardia. Abdomen is soft without tenderness or mass. Extremities with ongoing edema. Warm to touch, good capillary refill. Const: Vital Signs, click to edit/add: Vital Signs - 24 hr 05/16/24 19:00 05/16/24 23:00 05/16/24 23:00 Temperature 97.6 F 98.1 F Pulse Rate 95 Pulse Rate [Left P ulse Oximeter] 165 H 81 Respiratory Rate 18 18 Blood Pressure [Ri ght Arm] 163/113 H 131/84 Pulse Oximetry 97 98 Oxygen Delivery Me thod Room Air Room Air 05/16/24 23:00 05/17/24 03:00 05/17/24 07:00 Temperature 98.3 F Pulse Rate Pulse Rate [Left P ulse Oximeter] 81 92 110 H Respiratory Rate 18 18 22 Blood Pressure [Ri ght Arm] 119/64 146/104 H Pulse Oximetry 99 97 Oxygen Delivery Me thod Room Air 05/17/24 07:00 05/17/24 07:00 05/17/24 11:49 Temperature 97.6 F Pulse Rate 113 H Pulse Rate [Left P ulse Oximeter] 110 H 126 H Respiratory Rate 24 Blood Pressure [Ri ght Arm] 147/60 H Pulse Oximetry 98 Oxygen Delivery Me thod Room Air 05/17/24 13:58 Temperature Pulse Rate Pulse Rate [Left P ulse Oximeter] 120 H Respiratory Rate Blood Pressure [Ri ght Arm] 130/103 H Pulse Oximetry 97 Oxygen Delivery Me thod Room Air Documenting provider has reviewed patient's vital signs: yes Labs Labs: Laboratory Results - last 24 hr 05/17/24 06:05 WBC 6.90 RBC 3.29 L Hgb 9.0 L Hct 28.5 L MCV 87 MCH 27 MCHC 32 RDW Coeff of Cheryl 16.5 H Plt Count 453 H Neut % (Auto) 64.8 Lymph % (Auto) 18.8 L [place] % (Auto) 11.3 H Eos % (Auto) 4.3 Baso % (Auto) 0.7 Neut # (Auto) 4.46 Lymph # (Auto) 1.30 [place] # (Auto) 0.80 Eos # (Auto) 0.30 Baso # (Auto) 0.05 Abs Immat Gran (auto) 0.01 Imm/Tot Granulo (auto) 0.1 Sodium 135 Potassium 4.3 Chloride 102 Carbon Dioxide 28 Anion Gap 5 L BUN 20 Creatinine 0.4 L Estimated Creat Clear 55.80 Estimated GFR 106 Glucose 89 Calcium 8.5
[2024-05-17] MEDS: dilTIAZem 5 MG/ML inj 10 MG IVP (18:45)
--- NOTE | 2024-05-17 18:55 | PC.NURSE ---
End of shift [id number]: Pt nonverbal, developmental delay at baseline. Pt able to respond to 'yes' 'no' questions. MD South notified regarding tachycardia, see orders for further intervention. Pt had a wet brief that was changed, [facility] performed. Turned and repositioned q2h. Pt in bed resting watching television - call light in reach.
[2024-05-17] MEDS: QUETIAPINE 100 MG TABLET 200 MG G-TUBE (20:22)
[2024-05-17] MEDS: dilTIAZem 30 MG TABLET 60 MG G-TUBE (20:22)
[2024-05-18] MEDS: VANCOMYCIN 1.25 GM/250 ML 1.25 GM/250 ML PIGGYBACK IVPB (00:07)
[2024-05-18 00:18] VITALS: BP 122/89; PULSE 86; RESP 30; TEMP 36.6; O2SAT 100
[2024-05-18] MEDS: PIPERACILLIN/TAZOBACTAM 3.375 GM in 0.9 % SODIUM CHLORIDE Mini-bag 100 ML IVPB ×2 (01:38→08:28)
[2024-05-18 02:40] VITALS: BP 128/93; PULSE 89; RESP 26; TEMP 36.8; O2SAT 100
[2024-05-18] MEDS: dilTIAZem 30 MG TABLET 60 MG G-TUBE ×2 (02:57→08:33)
[2024-05-18] MEDS: METOPROLOL TARTRATE 25 MG TABLET G-TUBE ×2 (02:57→08:33)
[2024-05-18 06:10] LABS: Chloride* 103 mmol/L (96-114); Potassium* 4.2 mmol/L (3.6-5.1); Sodium* 135 mmol/L (135-149)
[2024-05-18 06:13] LABS: Blood Urea Nitrogen* 21 mg/dL (7-30); Creatinine* 0.5 mg/dL (0.5-1.5); Estimated Glomerular Filt Rate 100 ml/min
[2024-05-18 06:14] LABS: Anion Gap 4 mEq/L (7-15); Calcium* 8.5 mg/dL (8.4-10.6); Carbon Dioxide* 28 mmol/L (20-32); Glucose* 132 mg/dL (60-115)
--- NOTE | 2024-05-18 07:31 | PC.NURSE ---
Pt alert and oriented to self only. Pt states no when asked if in pain, but will yell/moan when turning and repositioning. Pt's right heel, elbow, and calf dressings are CDI. Pt's left hell dressing is CDI. Pt is wearing her leg braces. Pt's J-tube and G-tube is patent, tubing feeding tolerated well. Pt was turned and repositioned throughout night, voiding and had 1 moderate, soft, BM.
[2024-05-18 07:39] VITALS: PULSE 106
[2024-05-18 08:26] VITALS: BP 127/95; PULSE 116; RESP 20; TEMP 36.2; O2SAT 97
[2024-05-18] MEDS: SODIUM CHLORIDE 0.9 % (FLUSH) 10 ML SYRINGE 5 ML IVF (08:28)
[2024-05-18] MEDS: TORSEMIDE 20 MG TABLET G-TUBE (08:28)
[2024-05-18] MEDS: PANTOPRAZOLE SODIUM 40 MG INJ IVP (08:29)
[2024-05-18] MEDS: VALPROIC ACID 500 MG G-TUBE (08:32)
[2024-05-18] MEDS: APIXABAN 5 MG TABLET G-TUBE (08:32)
[2024-05-18] MEDS: CETIRIZINE HCL 10 MG TABLET G-TUBE (08:32)
[2024-05-18] MEDS: ESCITALOPRAM 10 MG TABLET 30 MG G-TUBE (08:32)
[2024-05-18] MEDS: ACETAMINOPHEN 500 MG TABLET 1000 MG G-TUBE (08:33)
--- NOTE | 2024-05-18 11:48 | P.DS_ITS ---
DS: Providers Provider Date Seen: 05/18/24 Date of admission: 05/09/24 22:01 Primary care physician: Rebeca Diaz Admitting Clinician: Daysi South MD Consults: Podiatry, ID, SW, OT/PT Attending Physician on discharge: Kaya Mazariegos MD Date of Discharge: 05/18/24 DS: Diagnosis Discharge Diagnosis (1) Osteomyelitis: Status: Acute Problem details: - Right calcaneus, wound first noted 01/30 per Epic chart, first visit to our wound center for this 02/2024 - Vancomycin and Zosyn (05/09/24), wound culture 04/24/24 + for Pseudomonas, Staph, GBS, Enterococcus - superficial wound cultures from May 10 admission show Enterococcus faecalis, MRSA, Klebsiella pneumonia, Pseudomonas aeruginosa resistant to quinolones - per phone consult with ID: needs TOTAL of 6wks of anti-MRSA coverage with IV vancomycin, in addition to 6 weeks of Augmentin for anaerobic coverage (started 05/09/24) - continue wound VAC treatment as well; for successful treatment of the osteomyelitis of the heel she will need soft tissue to heal over the exposed bone - if calcaneal osteomyelitis does not heal well, or has recurrent infections, will need to consider below the knee amputation (2) Pressure ulcer: Status: Acute Problem details: - Multiple sites x 4- right lower leg, right calcaneus stage 4, left calcaneal stage 3, right elbow stage 2 (3) Nonverbal: Status: Acute Problem details: - responds nonverbally to simple communications (4) Atrial fibrillation with RVR: Status: Acute Problem details: - Rate controlled with metoprolol down G-tube 25 mg q.6 hours and diltiazem 60 mg every 6 hours down G-tube - on Apixaban for anticoagulation (5) Mixed anxiety depressive disorder: Status: Acute Problem details: - continue Valproic acid, Lexapro, Clonazepam (6) GERD (gastroesophageal reflux disease): Status: Acute Problem details: - Continue PPI (7) G tube feedings: Status: Acute Problem details: - initiated fall 2023 during lengthy hospitalization at [facility] for sepsis in the setting of aspiration pneumonia - admitted on Jevity 1.5, Nutrition followed during stay and transitioned to Promote with Fiber at 150mL/hr for 12 hrs overnight + 150mL water flushes 6 times/day (8) Neurogenic bladder: Status: Acute Problem details: - Incontinent, keep skin clean and dry (9) Heart failure: Status: Acute Problem details: - developed mild pulmonary edema during hospital stay, TTE c/w new diagnosis of HFrEF (mildly reduced EF of 50-55%) - initiated low dose Torsemide once/day, potassium remained stable on this (10) Discharge planning issues: Status: Acute Problem details: - SW assisted with d/c planning given wound care need/wound vac, IV abx DS: Summary Hospital Course Hospital Course: Vida Gunn is a 73 year old female with a past medical history signifi cant for atrial fibrillation (on chronic anticoagulation), hypertension, hypertensive kidney disease stage 2, GERD, osteoarthritis, multiple pressure wounds, mixed anxiety depressive disorder, chronic cough, neurogenic bladder, Paget's disease, and nonverbal status 2/2 moderate intellectual disability, who was admitted to our hospital on 05/09/24 for osteomyelitis of the R calcaneus. Known wound that had been present since 01/2024, seen at our wound clinic on day of admission with concern for worsening infection given malodorous drainage and exposed bone. She is nonambulatory (Luis E lift). Hospital course: - IV vancomycin and Zosyn initiated on admission, 05/09/2024 - MRI on admissione revealed calcaneal osteomyelitis, achilles involvement - First trip to OR with Dr. Villa of Podiatry on 05/11/2024, underwent I and D and a partial calcanectomy on the RIGHT, in addition to the debridement of a LEFT decubitus heel ulcer - Second trip to OR with Dr. Villa on 05/14/2024 for wide debridement, including bone, and application of wound VAC - required increase in metoprolol dosing for AFib/RVR, diltiazem also added to regimen for rate control (on discharge, on both of these medicines every 6 hours, unable to use XR dosing given G-tube administration) - TTE obtained and c/w mild HFrEF (presumably new diagnosis), EF 50-55%, initiated low-dose torsemide as she clinically appeared to have some pulmonary edema (improved with diuresis) - ID consulted by phone, recommended total of 6 weeks of IV vancomycin (this was initiated 05/09/24) and a total of 6 weeks oral Augmentin for anaerobic coverage (abx to be administered through 06/20/2024) per cx results Josue lives in a [place] [facility], upon discharge she requires discharge to SNF for the following: - thrice weekly wound VAC changes (Last Wound vac change on 05/16/[address] Villa of Podiatry) and wound care/monitoring - IV and oral antibiotics through 06/20/2024 per above - monitoring of heart rate and electrolytes Sister was updated and in agreement with the above care plan. She understands that a BKA may be recommended in the future, pending healing over the next 5-6 weeks. Time Spent with Patient Time attestation: Total time spent providing and/or coordinating discharge services: Time spent: Greater than 30 minutes Exam Narrative: Exam Narrative: Laying comfortably in bed, answering yes no questions States no pain today Cardiovascular exam reveals irregular rhythm with rate in the 90s Lungs clear without wheezing Wound VAC is applied to right lower extremity Const: Vital Signs, click to edit/add: Vital Signs - 24 hr 05/17/24 11:49 05/17/24 13:58 05/17/24 15:00 Temperature 97.6 F 98.3 F Pulse Rate Pulse Rate [Left P ulse Oximeter] 126 H 120 H 89 Respiratory Rate 24 24 Blood Pressure [Ri ght Arm] 147/60 H 130/103 H 151/98 H Pulse Oximetry 98 97 97 Oxygen Delivery [facility] Room Air Room Air Room Air 05/17/24 15:00 05/17/24 19:00 05/17/24 23:54 Temperature 99.1 F Pulse Rate 109 H 86 Pulse Rate [Left P ulse Oximeter] 119 H Respiratory Rate 32 H Blood Pressure [Ri ght Arm] 152/108 H Pulse Oximetry 100 Oxygen Delivery [facility] Room Air 05/18/24 00:18 05/18/24 00:18 05/18/24 02:40 Temperature 97.8 F 98.2 F Pulse Rate Pulse Rate [Left P ulse Oximeter] 86 86 89 Respiratory Rate 30 H 30 H 26 H Blood Pressure [Ri ght Arm] 122/89 128/93 H Pulse Oximetry 100 100 [facility]xygen Delivery [facility] Room Air 05/18/24 07:39 05/18/24 08:26 Temperature 97.1 F L Pulse Rate 106 H Pulse Rate [Left P ulse Oximeter] 116 H Respiratory Rate 20 Blood Pressure [Ri ght Arm] 127/95 H Pulse Oximetry 97 Oxygen Delivery [facility] Room Air DS: Data Data Completed and Pending Labs on day of discharge: Labs from last 24 hours 05/18/24 05/18/24 05:52 00:05 Sodium 135 Potassium 4.2 Chloride 103 Carbon Dioxide 28 Anion Gap 4 L BUN 21 Creatinine 0.5 Estimated Creat Clear 55.80 Estimated GFR 100 Glucose 132 H Calcium 8.5 Vancomycin Trough 13.6 Preliminary micro results at discharge 05/14/24 06:09 Blood Culture - Preliminary Blood NO GROWTH AFTER 96 HOURS 05/14/24 06:09 Blood Culture - Preliminary Blood NO GROWTH AFTER 96 HOURS 05/11/24 13:52 Anaerobic Culture - Preliminary Foot Right Discharge Plan Discharge Disposition: [facility] Date of Admission: 05/09/24 22:01 Attending Provider on Discharge: Kaya Mazariegos Consulting Providers: Yury Villa; Cara Conroy; Patricia Loo; Estefania Rausch; Ashley Boyle Primary Care Provider: Rebeca Diaz Anticipated Discharge Date/Time: 05/18/24 09:13 Discharge Medications: New acetic acid 0.25 % Solution 1 irrig irrigation DIRECTED Qty: 6000 0RF Rx Instructions: as needed for foot wound diltiazem HCl 30 mg Tablet 60 mg G-tube Q6H Qty: 120 0RF metoprolol tartrate 25 mg Tablet 25 mg G-tube Q6H Qty: 120 0RF vancomycin-diluent combo no.1 1.25 gram/250 mL Piggyback 1.25 g IVPB Q12H Qty: 1500 0RF Rx Instructions: for a total of 6 weeks, initiated 05/09/24 torsemide 20 mg Tablet 10 mg G-tube DAILY@0800 Qty: 14 0RF clonazepam 0.5 mg Tablet 0.5 mg G-tube HS PRNQty: 30 0RF tramadol 50 mg Tablet 50 mg G-tube QID PRN (Reason: leg pain) Qty: 30 0RF amoxicillin-pot clavulanate 875-125 mg tablet 1 tab PO BID 35 Days Qty: 70 0RF Continued escitalopram oxalate 20 mg tablet 20 mg feeding tube DAILY Rx Instructions: total dose 30mg tramadol 50 mg tablet 50 mg feeding tube QID PRN clonazepam 0.5 mg tablet 0.5 mg feeding tube HS cetirizine 10 mg tablet 10 mg feeding tube DAILY glycopyrrolate 1 mg tablet 1 mg feeding tube BID PRN escitalopram oxalate 10 mg tablet 10 mg feeding tube DAILY Rx Instructions: total dose 30mg acetaminophen 500 mg tablet 1,000 mg feeding tube TID Patient Comments: PLUS PRN Eliquis 5 mg tablet 5 mg feeding tube BID lansoprazole 15 mg tablet,disintegrat, delay rel 15 mg feeding tube HS metoprolol tartrate 25 mg tablet 25 mg feeding tube BID Children's Multivitamin Tablet,Chewable 1 tab PO DAILY Rx Instructions: per g tube quetiapine 100 mg tablet 200 mg feeding tube HS valproic acid (as sodium salt) 250 mg/5 mL solution 500 mg feeding tube TID Discharge Orders: Discharge Order (Routine); Ordered 05/18/24 Ordered By: Kaya Mazariegos Additional Instructions: ANTIBIOTICS: - IV Vancomycin and oral Augmentin for 5 more weeks (total of 6 weeks, initiated 05/09/24) A FIB: - on Diltiazem and Metoprolol per G Tube Q6H, please monitor HR and BP once daily (goal is to keep HR <110) TUBE FEEDINGS: - Promote with Fiber at 150mL/hr for 12 hrs overnight + 150mL water flushes 6 times/day Activity Detail: Luis E lift Diet Detail: G-Tube (per above) Follow Up Appointments: Rebeca Diaz [Primary Care Provider] - [facility] Wound Care: per nursing notes/wound vac Admit to: SNF Length of Stay: 30-90 days Code Status: Full Code TEDs: Bilateral Knee Rehab Potential: Poor Therapy: Physical Therapy and Occupational Therapy Oxygen: No Lab Orders: CBC and BMP on Tuesday, 05/21 Orders are good >30 days: Yes Signature: Kaya Mazariegos MD
--- NOTE | 2024-05-18 13:02 | PC.SOCIAL ---
Discharge planning: [facility] received the OBRA level 2 assessment on the pt and the pt is able to go to [facility] today. Discharge orders were secure emailed to Michelle at [facility] who is covering for Carlton Diane today. Pt will transport via non-emergent EMS at 1:00pm. food counter worker notified Michelle of the transport time. food counter worker also left a message for pt's guardian, Hillary, and her nurse, Reena, from her senior care letting them know that the pt was transporting to [facility] today. Pre-admission screening was completed the other day, but this worker sent the confirmation number to Michelle again. [id number]. Social work to follow-up as needed.
--- NOTE | 2024-05-18 13:50 | PC.NURSE ---
Patient discharged to [facility]. [id number] report given to Nurse Caryn at [facility].
--- NOTE | 2024-05-19 12:00 | PC.NURSE ---
Wheelchair: Helene from skilled nursing here to bead picker wheelchair, picked up @ 11:58.
== END 2024-05-18 13:48 | DRG 500 ==
LOC: ED 20:37 → MEDSURG 21:04
PROVIDERS: Family Medicine; Podiatrist; Admitting Provider Physician Assistant; Emergency Provider Emergency Medicine Emergency Medical Services; PCP Internal Medicine; Visit Provider Family Medicine
PROC: 0QBL0ZZ Excision of Right Tarsal, Open Approach (ICD-10-PCS; principal; 2024-05-11 12:30)
DX: M86.171 Other acute osteomyelitis, right ankle and foot (principal); I50.21 Acute systolic (congestive) heart failure; L89.614 Pressure ulcer of right heel, stage 4; L89.623 Pressure ulcer of left heel, stage 3; L89.894 Pressure ulcer of other site, stage 4; I13.0 Hypertensive heart and chronic kidney disease with heart failure and stage 1 through stage 4 chronic kidney disease, or unspecified chronic kidney disease; L89.012 Pressure ulcer of right elbow, stage 2; G89.18 Other acute postprocedural pain; M86.671 Other chronic osteomyelitis, right ankle and foot; N31.9 Neuromuscular dysfunction of bladder, unspecified; I48.91 Unspecified atrial fibrillation; Z79.01 Long term (current) use of anticoagulants; I12.9 Hypertensive chronic kidney disease with stage 1 through stage 4 chronic kidney disease, or unspecified chronic kidney disease; N18.2 Chronic kidney disease, stage 2 (mild); D64.9 Anemia, unspecified; F71 Moderate intellectual disabilities; F41.8 Other specified anxiety disorders; F42.9 Obsessive-compulsive disorder, unspecified; R05.3 Chronic cough; Z93.1 Gastrostomy status; M88.89 Osteitis deformans of multiple sites; K21.9 Gastro-esophageal reflux disease without esophagitis; B95.2 Enterococcus as the cause of diseases classified elsewhere; B95.62 Methicillin resistant Staphylococcus aureus infection as the cause of diseases classified elsewhere; B96.1 Klebsiella pneumoniae [K. pneumoniae] as the cause of diseases classified elsewhere; B96.5 Pseudomonas (aeruginosa) (mallei) (pseudomallei) as the cause of diseases classified elsewhere; F80.9 Developmental disorder of speech and language, unspecified; F78.A9 Other genetic related intellectual disability; Z79.899 Other long term (current) drug therapy
CPT/HCPCS: 01470; 01480; 11042; 11045; 36415; 36430; 36573; 64445; 71045; 73620; 73630; 73723; 76942; 80048; 80076; 80202; 82270; 83605; 83880; 84145; 84484; 85025; 85027; 85610; 86140; 86850; 86900; 86901; 86922; 87040; 87070; 87075; 87076; 87081; 87186; 87205; 87493; 87800; 88307; 88311; 93005; 93306; 99100; 99284; 99285; G0463; A4221; A9270; A9575; C1751; J0330; J0665; J1100; J1171; J1650; J1938; J2060; J2371; J2405; J2470; J2543; J2704; J2795; J3010; J3372; J3490; J7030; J7120; P9016

== ENCOUNTER 2024-05-18 13:38 | Outpatient (CLI) | payer MEDICARE, MEDICAID, SELFPAY | END 2024-05-18 13:39 | disposition home or self-care (01) | LOC: AMB 05-24 08:18 | PROVIDERS: PCP Internal Medicine; Visit Provider Family Medicine | DX: M86.171 Other acute osteomyelitis, right ankle and foot (principal); L89.514 Pressure ulcer of right ankle, stage 4; L89.012 Pressure ulcer of right elbow, stage 2; I48.91 Unspecified atrial fibrillation | CPT/HCPCS: A0425; A0428 ==

== ENCOUNTER 2024-10-09 08:20 | Outpatient (CLI) | payer MEDICARE, MEDICAID, SELFPAY | END 2024-10-09 08:21 | disposition home or self-care (01) | LOC: WOUND 08:21 | PROVIDERS: PCP Internal Medicine; Visit Provider Nurse Practitioner Family | DX: L89.620 Pressure ulcer of left heel, unstageable (principal); I89.0 Lymphedema, not elsewhere classified; B37.2 Candidiasis of skin and nail; F78.A9 Other genetic related intellectual disability | CPT/HCPCS: 97597; G0463 ==

== ENCOUNTER 2024-10-16 09:13 | Outpatient (CLI) | payer MEDICARE, SELFPAY | END 2024-10-16 09:14 | disposition home or self-care (01) | LOC: WOUND 09:15 | PROVIDERS: PCP Internal Medicine; Visit Provider Nurse Practitioner Family | DX: L89.620 Pressure ulcer of left heel, unstageable (principal); I89.0 Lymphedema, not elsewhere classified; B37.2 Candidiasis of skin and nail; F78.A9 Other genetic related intellectual disability | CPT/HCPCS: G0463 ==

== ENCOUNTER 2024-10-26 10:27 | Outpatient (CLI) | payer MEDICARE, SELFPAY | END 2024-10-26 10:28 | disposition home or self-care (01) | LOC: WOUND 10:27 | PROVIDERS: PCP Internal Medicine; Visit Provider Nurse Practitioner Family | DX: L89.620 Pressure ulcer of left heel, unstageable (principal); I89.0 Lymphedema, not elsewhere classified; F78.A9 Other genetic related intellectual disability | CPT/HCPCS: 97597 ==

== ENCOUNTER 2024-11-02 10:18 | Outpatient (CLI) | payer MEDICARE, SELFPAY | END 2024-11-02 10:19 | disposition home or self-care (01) | LOC: WOUND 10:18 | PROVIDERS: PCP Internal Medicine; Visit Provider Nurse Practitioner Family | DX: L89.620 Pressure ulcer of left heel, unstageable (principal); I89.0 Lymphedema, not elsewhere classified; F78.A9 Other genetic related intellectual disability | CPT/HCPCS: 97597 ==

== ENCOUNTER 2024-11-09 10:27 | Outpatient (CLI) | payer MEDICARE, SELFPAY | END 2024-11-09 10:28 | disposition home or self-care (01) | LOC: WOUND 10:27 | PROVIDERS: PCP Internal Medicine; Visit Provider Family Medicine | DX: L89.620 Pressure ulcer of left heel, unstageable (principal); I89.0 Lymphedema, not elsewhere classified; S81.801A Unspecified open wound, right lower leg, initial encounter; Z89.511 Acquired absence of right leg below knee; F78.A9 Other genetic related intellectual disability | CPT/HCPCS: 97597 ==

== ENCOUNTER 2024-11-16 10:23 | Outpatient (CLI) | payer MEDICARE, SELFPAY | END 2024-11-16 10:24 | disposition home or self-care (01) | LOC: WOUND 10:24 | PROVIDERS: PCP Internal Medicine; Visit Provider Nurse Practitioner Family | DX: L89.620 Pressure ulcer of left heel, unstageable (principal); I89.0 Lymphedema, not elsewhere classified; Z89.511 Acquired absence of right leg below knee; F78.A9 Other genetic related intellectual disability | CPT/HCPCS: 97597 ==

== ENCOUNTER 2024-11-20 10:23 | Outpatient (CLI) | payer MEDICARE, SELFPAY | END 2024-11-20 10:24 | disposition home or self-care (01) | LOC: WOUND 10:24 | PROVIDERS: PCP Internal Medicine; Visit Provider Nurse Practitioner Family | DX: L89.620 Pressure ulcer of left heel, unstageable (principal); I89.0 Lymphedema, not elsewhere classified; Z89.511 Acquired absence of right leg below knee; F78.A9 Other genetic related intellectual disability | CPT/HCPCS: 97597 ==

== ENCOUNTER 2024-11-30 10:16 | Outpatient (CLI) | payer MEDICARE, SELFPAY | END 2024-11-30 10:17 | disposition home or self-care (01) | LOC: WOUND 10:16 | PROVIDERS: PCP Internal Medicine; Visit Provider Nurse Practitioner Family | DX: I89.0 Lymphedema, not elsewhere classified (principal); S81.801A Unspecified open wound, right lower leg, initial encounter; Z89.511 Acquired absence of right leg below knee; F78.A9 Other genetic related intellectual disability; Z93.1 Gastrostomy status | CPT/HCPCS: 97597 ==

== ENCOUNTER 2024-12-07 10:31 | Outpatient (CLI) | payer MEDICARE, SELFPAY | END 2024-12-07 10:32 | disposition home or self-care (01) | LOC: WOUND 10:31 | PROVIDERS: PCP Internal Medicine; Visit Provider Nurse Practitioner Family | DX: I89.0 Lymphedema, not elsewhere classified (principal); S81.801D Unspecified open wound, right lower leg, subsequent encounter; Z89.511 Acquired absence of right leg below knee; F78.A9 Other genetic related intellectual disability; Z93.1 Gastrostomy status | CPT/HCPCS: G0463 ==

== ENCOUNTER 2024-12-14 10:19 | Outpatient (CLI) | payer MEDICARE, SELFPAY | END 2024-12-14 10:20 | disposition home or self-care (01) | LOC: WOUND 10:19 | PROVIDERS: PCP Internal Medicine | DX: I89.0 Lymphedema, not elsewhere classified (principal); S81.801D Unspecified open wound, right lower leg, subsequent encounter; Z89.511 Acquired absence of right leg below knee; F78.A9 Other genetic related intellectual disability; Z93.1 Gastrostomy status | CPT/HCPCS: 97597 ==

== ENCOUNTER 2024-12-21 10:18 | Outpatient (CLI) | payer MEDICARE, SELFPAY | END 2024-12-21 10:19 | disposition home or self-care (01) | PROVIDERS: PCP Internal Medicine; Visit Provider Nurse Practitioner Family | DX: I89.0 Lymphedema, not elsewhere classified (principal); F78.A9 Other genetic related intellectual disability | CPT/HCPCS: G0463 ==